=== PATIENT | female | born 1970 | race Caucasian/White ===

== ENCOUNTER 2017-09-24 16:13 | Inpatient (IN) ==
[2017-09-24] MEDS ORDERED: Isovue-370 500 ML INFUS..BTL IV ONE ×2 (16:36→16:37)
--- NOTE | 2017-09-24 16:46 | Emergency Department Note ---
Disposition Clinical Impression: Hypokalemia, Severe sepsis, Lactic acidosis Anemia Qualifiers: Anemia type: unspecified type Qualified Code(s): D64.9 - Anemia, unspecified Liver failure Qualifiers: Liver failure chronicity: unspecified chronicity Hepatic coma status: without hepatic coma Qualified Code(s): K72.90 - Hepatic failure, unspecified without coma UTI (urinary tract infection) Qualifiers: Urinary tract infection type: site unspecified Hematuria presence: without hematuria Qualified Code(s): N39.0 - Urinary tract infection, site not specified Disposition: Admitted As Inpatient Condition: Serious Referrals: NONE,PCP [Primary Care Provider] - Time of Disposition: 17:49 General Adult HPI - General Chief complaint: ED General Medical Stated complaint: "Swelling all over" Time Seen by Provider: 09/24/17 16:20 Source: patient Mode of arrival: ambulatory Limitations: no limitations Nursing Notes Reviewed: Yes Vital Signs Reviewed: Yes - History of Present Illness HPI Narrative: 47-year-old female history of smoking, drinking, methamphetamine use, fatty liver, presents with abdominal swelling, bilateral lower extremity swelling, and dyspnea. Patient states this been progressive for the last several months, patient had worsening symptoms lately. Patient states that she has more dyspnea , she is more short of breath with light activity. She feels like her abdomen is more distended. She denies fever, chills, diarrhea or constipation. Onset (ago): week(s) Location: abdomen Pain Severity: moderate Pain Scale: 8 Improves with: nothing Worsens with: nothing Associated symptoms: Reports: loss of appetite, nausea/vomiting. Denies: confusion, chest pain, cough, diaphoresis - Related Data Allergies Allergy/AdvReac Type Severity Reaction Status Date / Time No Known Allergies Allergy Verified 09/24/17 16:35 All systems ED: reviewed and negative except as stated. Review of Systems: As Per HPI Constitutional: Reports: weakness. Denies: fever, chills Eyes: Denies: eye pain ENT ED: Denies: ear pain Cardiovascular: Denies: chest pain Respiratory: Denies: cough Gastrointestinal: Reports: as per HPI, abdominal pain, nausea, vomiting. Denies : diarrhea, hematemesis, melena, hematochezia Genitourinary: Denies: urgency, dysuria Musculoskeletal: Denies: back pain, neck pain Integumentary: Denies: rash Neurological: Denies: headache Past Medical History - Past Medical History Attestation: Yes The following information was validated with the patient. Source: patient - Social History Smoking Status: Current every day smoker Alcohol use: Reports: heavy Drug use: Reports: marijuana, methamphetamine, prescription drug abuse Physical Exam - General General appearance: cachectic - Head Head exam: atraumatic - Eye Eye exam: Present: PERRL, scleral icterus - ENT ENT exam: normal exam - Neck Neck exam: Present: normal inspection, full ROM - Chest Chest inspection: Present: normal inspection, symmetric chest wall rise - Respiratory Respiratory exam: Present: normal lung sounds bilaterally - Expanded Respiratory Exam Location: decreased breath sounds: Lower, Right, Left - Cardiovascular Cardiovascular exam: Present: regular rate, normal rhythm - Abdominal Exam Abdominal exam: Present: soft, distention (severe). Absent: guarding, rebound Abdominal tenderness: Present: diffuse, moderate - Extremities Exam Extremities exam: Present: normal inspection, full ROM - Expanded Lower Extremity Exam Lower leg exam: Present: swelling (Bilateral +2 pitting) - Back Exam Back exam: Present: normal inspection, full ROM. Absent: CVA tenderness (R), CVA tenderness (L) - Neurological Exam Neurological exam: Present: alert - Expanded Neurological Exam Patient oriented to: Present: person, place, time Motor strength - LUE: 5/5 Motor strength - RUE: 5/5 Motor strength - LLE: 5/5 Motor strength - RLE: 5/5 Coma Scale Eye Opening: Spontaneous Coma Scale Motor Response: Obeys Commands Coma Scale Verbal Response: Oriented Coma Scale Total: 15 - Skin Skin exam: Present: other (jaundiced) Course Course Narrative: 47-year-old female with abdominal distention and jaundice scleral icterus, she appears to be in liver renal failure, she also has +2 pitting edema bilaterally , plan is for CBC BMP, hepatic panel, basic labs lactate, blood cultures, IV fluids, plan for CT imaging of her chest abdomen pelvis - Reevaluation(s) Reevaluation #1: Patient with multiple metabolic abnormalities, she does have good renal function so we can get a CTA of her chest abdomen pelvis, however the patient has hypokalemia, anemia 7.5, unsure if acute or chronic, patient likely has liver failure with bilirubin of 3, she has evidence of sepsis identified at this time, with lactate of 3.7 her urine just came back as positive for nitrite and leukocyte esterase we will send a culture, treat empirically with Zosyn and Flagyl to cover for an anaerobe and intra-abdominal organisms, plan is for CT imaging and admission. Time: 17:47 Reevaluation #2: Admitted to Dr. Soto, for lactic acidosis, liver failure, anemia, multiple metabolic Maladies, patient hemodynamically stable started on Zosyn and Flagyl empirically. Time: 18:40 Vital Signs Temperature 98.0 F 09/24/17 16:14 Pulse Rate 98 09/24/17 16:14 Respiratory Rate 16 09/24/17 16:14 Blood Pressure 129/71 09/24/17 16:14 O2 Sat by Pulse Oximetry 95 09/24/17 16:14 Temperature 98.0 F 09/24/17 16:36 Pulse Rate 83 09/24/17 17:04 Respiratory Rate 20 09/24/17 17:04 Blood Pressure 90/64 09/24/17 17:04 O2 Sat by Pulse Oximetry 94 09/24/17 17:04 Oxygen Delivery Oxygen Delivery Room Air Medical Decision Making - Medical Records Medical records reviewed: Yes I reviewed the patient's medical records. - Lab Data Lab results reviewed: Yes I reviewed the patient's lab results. Result diagrams: 09/24/17 17:00 09/24/17 17:00 Lab Results 09/24/17 09/24/17 09/24/17 Range/Units 17:00 17:00 17:00 WBC 13.3 H (4.3-11.1) K/mcL RBC 1.95 L (3.82-4.97) M/mcL Hgb 7.5 L (11.5-15.4) g/dL Hct 23.4 L (35.3-44.9) % MCV 120.0 H (83.0-100.0) fL MCH 38.5 H (28.0-33.3) pg MCHC 32.1 (31.6-35.5) g/dL RDW 16.9 H (11.5-14.5) % Plt Count 142 (140-400) K/mcL MPV 10.4 (9.4-12.4) fL Immature Gran % 0.6 (0-4) % Seg Neutrophils % 80.4 % Lymphocytes % 12.0 % Monocytes % 6.0 % Eosinophils % 0.8 % Basophils % 0.2 % Neutrophils # 10.7 H (1.6-8.9) K/mcL Lymphocytes # 1.6 (0.6-4.6) K/mcL Monocytes # 0.8 (0.0-1.3) K/mcL Eosinophils # 0.1 (0.0-0.6) K/mcL Basophils # 0.0 (0.0-0.2) K/mcL Platelet Estimate Normal (Normal) Anisocytosis 1+ A (Not Present) Macrocytosis Present A (Not Present) Sodium 135 L (136-145) mEq/L Potassium 2.7 L (3.5-5.1) mEq/L Chloride 95 L (98-107) mEq/L Carbon Dioxide 29 (23-29) mEq/L BUN 4 L (6-20) mg/dL Creatinine 0.41 L (0.60-1.20) mg/dL Est GFR ( Amer) > 60 (> 60) Est GFR (Non-Af Amer) > 60 (> 60) BUN/Creatinine Ratio 10 (6-26) Glucose 99 (70-105) mg/dL Calculated Osmolality 277 L (280-300) Lactic Acid 3.7 H (0.5-2.2) mmol/L Calcium 7.9 L (8.6-10.3) mg/dL Total Bilirubin 3.0 H (0.3-1.0) mg/dL Direct Bilirubin 1.6 H (0.0-0.2) mg/dL Indirect Bilirubin 1.4 H (0.0-1.2) mg/dL AST 59 H (13-39) Units/L ALT 8 (7-52) Units/L Alkaline Phosphatase 190 H (34-104) Units/L Troponin I < 0.03 (< 0.04) ng/mL B-Natriuretic Peptide (Less than 100) pg/mL Serum Total Protein 7.0 (6.4-8.9) g/dL Albumin 3.0 L (3.5-5.7) g/dL Globulin 4.0 H (2.4-3.5) g/dL Albumin/Globulin Ratio 0.8 L (1.1-2.2) Urine Color (Yellow) Urine Clarity (Clear) Urine pH (5.0-8.0) pH Units Ur Specific [place] (1.010-1.025) Urine Protein (Neg-Trace) mg/dL Urine Glucose (UA) (Normal) mg/dL Urine Ketones (Negative) mg/dL Urine Blood (Negative) Urine Nitrite (Negative) Urine Bilirubin (Negative) Urine Urobilinogen (Normal) mg/dL Ur Leukocyte Esterase (Negative) Urine Microscopic RBC (0-3) per hpf Urine Microscopic WBC (0-3) per hpf Ur Squamous Epith Cells (None-Few) per lpf Urine Bacteria (None-Few) per hpf Hyaline Casts (None-Few) per lpf Ur Culture Indicated? (NO) Stool Occult Blood (Negative) Blood Type Antibody Screen 09/24/17 09/24/17 09/24/17 Range/Units 17:00 17:15 17:35 WBC (4.3-11.1) K/mcL RBC (3.82-4.97) M/mcL Hgb (11.5-15.4) g/dL Hct (35.3-44.9) % MCV (83.0-100.0) fL MCH (28.0-33.3) pg MCHC (31.6-35.5) g/dL RDW (11.5-14.5) % Plt Count (140-400) K/mcL MPV (9.4-12.4) fL Immature Gran % (0-4) % Seg Neutrophils % % Lymphocytes % % Monocytes % % Eosinophils % % Basophils % % Neutrophils # (1.6-8.9) K/mcL Lymphocytes # (0.6-4.6) K/mcL Monocytes # (0.0-1.3) K/mcL Eosinophils # (0.0-0.6) K/mcL Basophils # (0.0-0.2) K/mcL Platelet Estimate (Normal) Anisocytosis (Not Present) Macrocytosis (Not Present) Sodium (136-145) mEq/L Potassium (3.5-5.1) mEq/L Chloride (98-107) mEq/L Carbon Dioxide (23-29) mEq/L BUN (6-20) mg/dL Creatinine (0.60-1.20) mg/dL Est GFR ( Amer) (> 60) Est GFR (Non-Af Amer) (> 60) BUN/Creatinine Ratio (6-26) Glucose (70-105) mg/dL Calculated Osmolality (280-300) Lactic Acid (0.5-2.2) mmol/L Calcium (8.6-10.3) mg/dL Total Bilirubin (0.3-1.0) mg/dL Direct Bilirubin (0.0-0.2) mg/dL Indirect Bilirubin (0.0-1.2) mg/dL AST (13-39) Units/L ALT (7-52) Units/L Alkaline Phosphatase (34-104) Units/L Troponin I (< 0.04) ng/mL B-Natriuretic Peptide 218 H (Less than 100) pg/mL Serum Total Protein (6.4-8.9) g/dL Albumin (3.5-5.7) g/dL Globulin (2.4-3.5) g/dL Albumin/Globulin Ratio (1.1-2.2) Urine Color [place] A (Yellow) Urine Clarity Cloudy A (Clear) Urine pH 6.0 (5.0-8.0) pH Units Ur Specific [place] 1.019 (1.010-1.025) Urine Protein 30 H (Neg-Trace) mg/dL Urine Glucose (UA) Normal (Normal) mg/dL Urine Ketones Trace H (Negative) mg/dL Urine Blood Large H (Negative) Urine Nitrite Positive A (Negative) Urine Bilirubin Moderate H (Negative) Urine Urobilinogen Normal (Normal) mg/dL Ur Leukocyte Esterase Large H (Negative) Urine Microscopic RBC 5-15 H (0-3) per hpf Urine Microscopic WBC TNTC H (0-3) per hpf Ur Squamous Epith Cells Many H (None-Few) per lpf Urine Bacteria Moderate H (None-Few) per hpf Hyaline Casts None Seen (None-Few) per lpf Ur Culture Indicated? NO. A (NO) Stool Occult Blood (Negative) Blood Type A POSITIVE Antibody Screen NEGATIVE 09/24/17 Range/Units 18:11 WBC (4.3-11.1) K/mcL RBC (3.82-4.97) M/mcL Hgb (11.5-15.4) g/dL Hct (35.3-44.9) % MCV (83.0-100.0) fL MCH (28.0-33.3) pg MCHC (31.6-35.5) g/dL RDW (11.5-14.5) % Plt Count (140-400) K/mcL MPV (9.4-12.4) fL Immature Gran % (0-4) % Seg Neutrophils % % Lymphocytes % % Monocytes % % Eosinophils % % Basophils % % Neutrophils # (1.6-8.9) K/mcL Lymphocytes # (0.6-4.6) K/mcL Monocytes # (0.0-1.3) K/mcL Eosinophils # (0.0-0.6) K/mcL Basophils # (0.0-0.2) K/mcL Platelet Estimate (Normal) Anisocytosis (Not Present) Macrocytosis (Not Present) Sodium (136-145) mEq/L Potassium (3.5-5.1) mEq/L Chloride (98-107) mEq/L Carbon Dioxide (23-29) mEq/L BUN (6-20) mg/dL Creatinine (0.60-1.20) mg/dL Est GFR ( Amer) (> 60) Est GFR (Non-Af Amer) (> 60) BUN/Creatinine Ratio (6-26) Glucose (70-105) mg/dL Calculated Osmolality (280-300) Lactic Acid (0.5-2.2) mmol/L Calcium (8.6-10.3) mg/dL Total Bilirubin (0.3-1.0) mg/dL Direct Bilirubin (0.0-0.2) mg/dL Indirect Bilirubin (0.0-1.2) mg/dL AST (13-39) Units/L ALT (7-52) Units/L Alkaline Phosphatase (34-104) Units/L Troponin I (< 0.04) ng/mL B-Natriuretic Peptide (Less than 100) pg/mL Serum Total Protein (6.4-8.9) g/dL Albumin (3.5-5.7) g/dL Globulin (2.4-3.5) g/dL Albumin/Globulin Ratio (1.1-2.2) Urine Color (Yellow) Urine Clarity (Clear) Urine pH (5.0-8.0) pH Units Ur Specific [place] (1.010-1.025) Urine Protein (Neg-Trace) mg/dL Urine Glucose (UA) (Normal) mg/dL Urine Ketones (Negative) mg/dL Urine Blood (Negative) Urine Nitrite (Negative) Urine Bilirubin (Negative) Urine Urobilinogen (Normal) mg/dL Ur Leukocyte Esterase (Negative) Urine Microscopic RBC (0-3) per hpf Urine Microscopic WBC (0-3) per hpf Ur Squamous Epith Cells (None-Few) per lpf Urine Bacteria (None-Few) per hpf Hyaline Casts (None-Few) per lpf Ur Culture Indicated? (NO) Stool Occult Blood Negative (Negative) Blood Type Antibody Screen - Radiology Data Radiology results reviewed: Yes I reviewed the patient's radiology results. Chest CTA 09/24/17 16:36 IMPRESSION: No evidence of pulmonary embolism or acute pulmonary abnormality. Enlarged liver showing fatty infiltration. D/ / Laura Riley Cha, MD / Laura Riley Cha, MD Interpreting Provider: Laura Riley Cha, MD Chest X-Ray 09/24/17 16:36 IMPRESSION: No acute process. D/ / Benja Goodson MD / Benja Goodson MD Interpreting Provider: Benja Goodson MD Abdomen/Pelvis CT 09/24/17 16:37 IMPRESSION: 1. A 9 mm rim enhancing hypodensity in the right perianal region is suspicious for tiny abscess. 2. Hepatomegaly with diffuse heterogeneity and patchy areas of low-attenuation. Findings likely represent sequela of hepatic steatosis versus diffuse hepatocellular change. 3. Trace pericholecystic fluid is nonspecific but likely represent sequela of third-spacing of fluids or reactive to underlying liver disease. 4. Evidence of anasarca with small ascites, mesenteric/omental edema and body wall edema. 5. Scattered colonic diverticula without evidence of diverticulitis. 6. No evidence of bowel obstruction. 7. Nonobstructing bilateral renal calculi. D/ / 09/24/2017 18:34:24 Simon Pinzon MD / gal Interpreting Provider: Simon Pinzon MD - EKG Data EKG #1 EKG attestation: Yes I reviewed and interpreted this EKG. EKG shows normal: sinus rhythm Rate: normal Rhythm: NSR (85 bpm NM 161 QRS 90 QTC 493 T-wave inversions in lead V2 V3) T wave inversions noted in: v2, v3 Interpretation: nonspecific ST-T wave changes - Core Measures AMI Core Measures Followed: No Measure Exclusions: not indicated Critical Care Time Critical Care Time: Yes Total Critical Care Time: 35 Attestation: Critical care time 35 minutes managing patient's severe sepsis. Attestation Statement - Attestation Attestation: Patient was seen with resident physician. I reviewed the history, physical, assessment and plan, and agree with the findings. I also personally evaluated this patient and had [id number] time with this patient. 47-year-old female presents emergency Department with chief complaint swelling all over. Sensation states it started approximately one month ago. She has no real prior medical history except for fatty liver. She does acknowledge that she is a fairly heavy drinker and has had drugs including marijuana and methamphetamine. Says that the swelling has gotten so bad in her legs is painful to walk and stand. Also notes abdominal pain and abdominal swelling area pain is in the right upper and left upper quadrants. It seems to radiate into the chest underneath the breast. There is maybe some mild shortness of breath but no really classically described chest pain. Comes in today hoping for evaluation and treatment. Review of systems as above remained reviewed negative. Physical exam vital signs were stable. ENT is unremarkable. Heart regular rhythm and rate. Lungs were clear without crackles. Abdomen distended and obese with large abdominal girth. There is tenderness in the left upper and right upper quadrants. There is no guarding rigidity. Extremities 2+ pitting edema which is symmetrical and bilateral the lower extremities. Neurologically intact. Skin no rashes. Psych normal no evidence of withdrawal from alcohol. We will need to complete workup to try and figure out what is causing her swelling. Topical list would be liver or kidney disease. Also have to consider possible PE heart failure and other potential causes. All these will be looked at. Once workup is complete we will contact the hospitalist service and arrange for admission. Workup demonstrated hypokalemia severe sepsis likely from UTI. And ascites with liver dysfunction. Also with anemia. Patient had a lactic acidosis as well. CT scan of the chest did not reveal any acute abnormalities. Hospitalist was notified and agreed to accept patient for admission. Hemodynamically she did well. We gave her at least 1 L of fluids while she was here but we did not want to fluid overload her considering her significant swelling. Critical care time 35 minutes. I agree with resident physician assessment and plan.
[2017-09-24 17:18] LABS: Basophils % 0.2 %; Eosinophils # 0.1 K/mcL (0.0-0.6); Eosinophils % 0.8 %; Hematocrit 23.4 % (35.3-44.9); Hemoglobin 7.5 g/dL (11.5-15.4); Immature Granulocytes % 0.6 % (0-4); Lymphocytes # 1.6 K/mcL (0.6-4.6); Mean Corpuscular HGB Conc 32.1 g/dL (31.6-35.5); Mean Corpuscular Hemoglobin 38.5 pg (28.0-33.3); Mean Platelet Volume 10.4 fL (9.4-12.4); Monocytes # 0.8 K/mcL (0.0-1.3); Neutrophils # 10.7 K/mcL (1.6-8.9); Platelet Count 142 K/mcL (140-400); Red Blood Count 1.95 M/mcL (3.82-4.97); Red Cell Distribution Width 16.9 % (11.5-14.5); Segmented Neutrophils % 80.4 %
[2017-09-24] MEDS ORDERED: 0.9 % Sodium Chloride 1,000 ML IVC ONE ×2 (17:29→23:09)
[2017-09-24 17:30] LABS: Alanine Aminotransferase 8 Units/L (7-52); Albumin/Globulin Ratio 0.8 (1.1-2.2); Alkaline Phosphatase 190 Units/L (34-104); Aspartate Amino Transferase 59 Units/L (13-39); BUN/Creatinine Ratio 10 (6-26); Bilirubin,Direct 1.6 mg/dL (0.0-0.2); Bilirubin,Indirect 1.4 mg/dL (0.0-1.2); Blood Urea Nitrogen 4 mg/dL (6-20); Calcium 7.9 mg/dL (8.6-10.3); Carbon Dioxide 29 mEq/L (23-29); Chloride 95 mEq/L (98-107); Glucose 99 mg/dL (70-105); Osmolality,Calculated 277 (280-300); Potassium 2.7 mEq/L (3.5-5.1); Sodium 135 mEq/L (136-145); Troponin I < 0.03 ng/mL (< 0.04); eGFR For African Americans > 60 (> 60); eGFR For Non-African Americans > 60 (> 60)
[2017-09-24 17:30] LABS: Bilirubin,Urine Moderate (Negative); Blood,Urine Large (Negative); Clarity,Urine Cloudy (Clear); Color,Urine Orange (Yellow); Glucose,Urine (UA) Normal (Normal); Ketones,Urine Trace mg/dL (Negative); Leukocyte Esterase,Urine Large (Negative); Nitrite,Urine Positive (Negative); Protein,Urine 30 mg/dL (Neg-Trace); Specific Gravity,Urine 1.019 (1.010-1.025); Urobilinogen,Urine Normal (Normal)
[2017-09-24 17:32] LABS: Bacteria,Urine Moderate per hpf (None-Few); Hyaline Casts,Urine None Seen per lpf (None-Few); Squamous Epithelial Cell,Urine Many per lpf (None-Few); WBC,Urine TNTC per hpf (0-3)
[2017-09-24 17:39] LABS: Anisocytosis 1+ (Not Present); Macrocytosis Present (Not Present); Platelet Estimate Normal (Normal)
[2017-09-24] MEDS ORDERED: Piperacillin/Tazobactam 3.375 GM in 0.9 % Sodium Chloride Mini Bag 100 ML IVPB ONE (17:41)
[2017-09-24] MEDS ORDERED: MetroNIDAZOLE 500 MG/100 ML 500 MG/100 ML BAG IVPB ONE (17:44)
[2017-09-24] MEDS ORDERED: Naloxone 0.4 MG/ML INJ IVP PRN (18:49)
--- NOTE | 2017-09-24 18:57 | Internal Med History&Physical ---
Date of Encounter: 09/24/17 Time of Encounter: 18:55 Internal Medicine - H&P: HPI Chief complaint: Lower extremity swelling, stomach swellings History of present illness: Ms. Boone is a 47 year old female with a history of chronic alcoholism who takes no medicines presenting with subacute history of lower extremity swelling with abdominal distention. Admitted for "decompensated" cirrhosis. She presents because of worsening lower extremity edema in the last few weeks. This is on the back of abdominal swelling in the last 3 months. She does report some nonspecific subjective fevers and chills for the last 4-5 months. Denies any diarrhea or nausea or vomiting. She smokes a pack and half per day for many years. She drinks approximately 10 beers a week and about of liquor per week for the last 4-5 years. She mentioned that she first used amphetamine 4 days ago. On review given CT correlation. Patient had a perianal abscess approximately a year to year and half ago status post I&D. Patient denies active symptoms to include rectal pain and I believe CT finding is probably a remnant and nonactive problem. Review of symptoms also noted right arm paresthesia for the last 3 months. She denies any dysuria. Admits to chronic frequency EKG personally reviewed with rate 85, normal sinus rhythm FINDINGS: Lower Chest: Please see same-day chest CT report. Lung bases demonstrate no definite acute abnormality. Organs: Hepatomegaly with diffuse heterogeneity with patchy areas of low-attenuation. No discrete mass is identified. Mild periportal edema. No intrahepatic bile duct dilatation. Small amount of pericholecystic fluid. No calcified gallstones. Bilateral adrenal glands are normal. The spleen demonstrates no acute abnormality. Bilateral kidneys enhance symmetrically and demonstrate no acute abnormality. There are bilateral nonobstructing renal stones measuring up to 4 mm on the right. No hydronephrosis. The pancreas enhances uniformly. There is mild peripancreatic inflammation. GI/Bowel: No acute gastric abnormality. No acute small bowel abnormality. No evidence of small bowel obstruction. Partial visualization of a 9 mm mildly rim enhancing collection in the right perianal region. Scattered colonic diverticula. No evidence of diverticulitis. No definite acute colonic abnormality. Submucosal fat deposition along the colonic wall is probably an incidental finding. No evidence of appendicitis. Pelvis: No definite acute abnormality. Peritoneum/Retroperitoneum: Small/moderate ascites. Mild diffuse mesenteric and omental edema, including within the marisela hepatis. No free air. Moderate atherosclerotic disease of the abdominal aorta. IVC is unremarkable. No definite significant lymphadenopathy. Bones/Soft Tissues: No acute osseus abnormality. Body wall edema. Moderate degenerative changes lumbar spine, worse at L4-L5 and L5-S1. There is a prominent disc bulge at L4-L5 causing moderate central canal stenosis. CT/CT abd pelvis w iv no oral IMPRESSION: 1. A 9 mm rim enhancing hypodensity in the right perianal region is suspicious for tiny abscess. 2. Hepatomegaly with diffuse heterogeneity and patchy areas of low-attenuation. Findings likely represent sequela of hepatic steatosis versus diffuse hepatocellular change. 3. Trace pericholecystic fluid is nonspecific but likely represent sequela of third-spacing of fluids or reactive to underlying liver disease. 4. Evidence of anasarca with small ascites, mesenteric/omental edema and body wall edema. 5. Scattered colonic diverticula without evidence of diverticulitis. 6. No evidence of bowel obstruction. 7. Nonobstructing bilateral renal calculi. XR/XR chest 1V portable IMPRESSION: No acute process. CT/CT angio chest IMPRESSION: No evidence of pulmonary embolism or acute pulmonary abnormality. Enlarged liver showing fatty infiltration. Past Med Surg Social Fam HX - Past Medical History Medical history: no medical history, fibromyalgia, other Additional medical history: ETOH abuse. meth use. fatty liver Psychiatric history: no psych history - Past Surgical History Additional surgical history: back. biopsy of breast-benign. abscess of colon removed - Social History Smoking Status: Current every day smoker Smokeless Tobacco Status: No Alcohol use: heavy Drug use: marijuana, methamphetamine, prescription drug abuse Internal Medicine - H&P: Meds 3 Allergy/AdvReac Type Severity Reaction Status Date / Time No Known Allergies Allergy Verified 09/24/17 16:35 All Systems PM: A 10-system review of systems was performed and is negative for pertinent findings except as documented above in the HPI. Review of systems: ROS 14 point review of systems reviewed as best as possible given presentation. Pertinent positive or negative as per HPI or otherwise reviewed as negative - Constitutional Vitals: Temp Pulse Resp BP Pulse Ox 98.0 F 83 20 91/42 94 09/24/17 16:36 09/24/17 17:04 09/24/17 18:47 09/24/17 18:47 09/24/17 17:04 Exam: General - AAO x 3 Psych - Appropriate affect/speech. No agitation Eyes - ROXIE. Eye lids intact. scleral icterus Neuro - No gross peripheral or central neuro deficits on inspection Heart - Sinus. RRR. S1 and S2 present. No added HS/murmurs appreciated. No elevated JVD appreciated. Lung - Adequate air entry b/l, No crackles/wheezes appreciated GI - distended with dilated abdominal veins Soft, non-tender. Possible mild ascites. Bowel sounds present - No CVA/suprapubic tenderness or palpable bladder distension Skin - Intact. No rash/petechiae/ecchymosis. Warm extremities. +2 bilateral lower extremity edema Internal Med - H&P Results - Labs CBC & Chem 7: 09/24/17 17:00 09/24/17 17:00 - Assessment and plan (1) Decompensated hepatic cirrhosis Current Visit: Yes Status: Acute Assessment and plan: likely 2/2 alcoholism Trend liver function cirrhosis likely causing third spacing with LE edema, abdominal swelling. No immediate need for echo for now - will defer this to morning team outpatient Gi follow up (2) Alcoholism Current Visit: Yes Status: Acute Assessment and plan: [facility] protocol for now social work consult (3) Anemia Current Visit: Yes Status: Acute Assessment and plan: macrocytic along with anemia (Hb 15 in 2014) check nutritional studies further management pending nutritional studies watch for clinical bleeding e.g melena - will need to review again in a.m - outpatient GI eval Qualifiers: Anemia type: other cause Qualified Code(s): D53.8 - Other specified nutritional anemias (4) Hypokalemia Current Visit: Yes Status: Acute Assessment and plan: PO K replacement check K, Mg daily (5) Lactic acidosis Current Visit: Yes Status: Acute Assessment and plan: doubt 2/2 to sepsis could be due to liver dysfunction from cirrhosis trend lactate blood cx pend (6) UTI (urinary tract infection) Current Visit: Yes Status: Acute Assessment and plan: no overt symptoms but given leuk/nitrites/WBC present, will empirically treat with IV rocephin urine cx pend Qualifiers: Urinary tract infection type: site unspecified Hematuria presence: without hematuria Qualified Code(s): N39.0 - Urinary tract infection, site not specified (7) Perianal abscess Current Visit: Yes Status: Acute Assessment and plan: picked up on CT today but clinically no symptoms. Patient reported I&D approx 1- 1.5 years ago approx is symptom free for now expectant management - Time Spent With Patient Total time spent is greater than 50% in coordination of care (as documented) at patient's floor/unit and/or counseling patient:
[2017-09-25 00:25] LABS: Amphetamine Screen,Urine Positive ng/mL (Cutoff=1000); Barbiturate Screen,Urine Negative ng/mL (Cutoff=200); Benzodiazepines Screen,Urine Positive ng/mL (Cutoff=200); Cannabinoid Screen,Urine Negative ng/mL (Cutoff = 50); Cocaine Screen,Urine Negative ng/mL (Cutoff= 300); Opiate Screen,Urine Negative ng/mL (Cutoff=300); Phencyclidine Screen,Urine Negative ng/mL (Cutoff=25)
[2017-09-25 01:51] LABS: Basophils % 0.2 %; Eosinophils # 0.2 K/mcL (0.0-0.6); Eosinophils % 0.9 %; Hematocrit 30.8 % (35.3-44.9); Hemoglobin 10.1 g/dL (11.5-15.4); Immature Granulocytes % 0.6 % (0-4); Lymphocytes # 1.5 K/mcL (0.6-4.6); Lymphocytes % 8.2 %; Mean Corpuscular HGB Conc 32.8 g/dL (31.6-35.5); Mean Corpuscular Hemoglobin 38.8 pg (28.0-33.3); Mean Corpuscular Volume 118.5 fL (83.0-100.0); Mean Platelet Volume 10.5 fL (9.4-12.4); Monocytes % 5.5 %; Platelet Count 164 K/mcL (140-400); Red Cell Distribution Width 17.1 % (11.5-14.5); Retculocyte # 0.06 M/mcL (0.05-0.10); Reticulocyte % 2.3 % (1.6-2.8); Segmented Neutrophils % 84.6 %
[2017-09-25 01:59] LABS: INR 2.2; Prothrombin Time 24.4 Seconds (9.4-12.1)
[2017-09-25 02:02] LABS: Activated Partial Thrombo Time 37.7 Seconds (26.0-36.0)
[2017-09-25 02:16] LABS: % Iron Saturation 82 % (15-50); Alanine Aminotransferase 8 Units/L (7-52); Albumin 2.7 g/dL (3.5-5.7); Albumin/Globulin Ratio 0.7 (1.1-2.2); Alkaline Phosphatase 194 Units/L (34-104); Aspartate Amino Transferase 73 Units/L (13-39); BUN/Creatinine Ratio 9 (6-26); Bilirubin,Total 3.6 mg/dL (0.3-1.0); Blood Urea Nitrogen 4 mg/dL (6-20); Calcium 7.5 mg/dL (8.6-10.3); Carbon Dioxide 27 mEq/L (23-29); Chloride 101 mEq/L (98-107); Globulin 3.7 g/dL (2.4-3.5); Glucose 91 mg/dL (70-105); Iron 142 mcg/dL (50-170); Magnesium 1.7 mg/dL (1.6-2.6); Osmolality,Calculated 278 (280-300); Sodium 136 mEq/L (136-145); Total Protein 6.4 g/dL (6.4-8.9); Transferrin 124 mg/dL (203-362); eGFR For African Americans > 60 (> 60); eGFR For Non-African Americans > 60 (> 60)
[2017-09-25 02:23] LABS: Anisocytosis 1+ (Not Present); Macrocytosis Present (Not Present); Platelet Estimate Normal (Normal)
[2017-09-25 02:33] LABS: Ferritin 209 ng/mL (10-120)
[2017-09-25 02:37] LABS: Folate 2.7 ng/mL (3.0-16.0)
[2017-09-25] MEDS ORDERED: *HR* Enoxaparin 40 MG/0.4 ML SYRINGE SQ SCH (06:00)
[2017-09-25] MEDS ORDERED: cefTRIAXone 2,000 MG in Water for inj. (sterile) 20 ML 20 ML IVP SCH (09:00)
[2017-09-25] MEDS ORDERED: Ondansetron 4 MG/2 ML VIAL IVP ONE (09:41)
[2017-09-25] MEDS: Nicotine 21 MG PATCH.TD24 TD SCH (09:47)
[2017-09-25] MEDS: *HR* LORazepam 2 MG/ML VIAL IVP PRN ×6 (09:48→23:27)
[2017-09-25] MEDS ORDERED: 0.9 % Sodium Chloride 250 ML IVC ONE (09:58)
--- NOTE | 2017-09-25 09:59 | Internal Med Progress Note ---
Date of Encounter: 09/27/17 Time of Encounter: 09:56 - Assessment and plan (1) Decompensated hepatic cirrhosis Current Visit: Yes Status: Acute Assessment and plan: likely 2/2 alcoholism. Never got evaluated by GI specialist. Talk to GI specialist and consulted. Patient got admitted for cardiac spacing symptom and responded to IV diuretic but now blood pressure is low. A small fluid challenge 250 abdominal will be given and repeat blood pressure. The patient does not respond to consider VASOpressor and consult critical care. Possibility of septic shock as well as initial lactic acid was high and now white count trending up while on Rocephin. Possible source of infection GI related or possible perianal abscess found on CT abdomen there patient does not complain anal pain. Talk to surgeon in consulted. Will start antibiotic Levaquin and Flagyl. strict I&O's. Echocardiogram ordered to rule out underlying CHF. Today worsening or white count, low blood pressure and the new onset of diarrhea therefore changed antibiotic and consulted as above. . (2) Anemia Current Visit: Yes Status: Acute Assessment and plan: Monitor hemoglobin most likely due to hemoconcentration. Continue to monitor. Hemoccult test. Consulted GI specialist as well. macrocytic along with anemia (Hb 15 in 2014) Qualifiers: Anemia type: other cause Other causes of anemia: other cause, not classified Qualified Code(s): D64.89 - Other specified anemias Code(s): D64.9 - Anemia, unspecified SNOMED Code(s): 471235535 (3) Hypokalemia Current Visit: Yes Status: Acute Assessment and plan: Resolved. Continue to monitor BMP (4) UTI (urinary tract infection) Current Visit: Yes Status: Acute Assessment and plan: Asymptomatic but abnormal urine analysis. Urine culture report awaited. Continue antibiotic Levaquin. Qualifiers: Urinary tract infection type: site unspecified Hematuria presence: without hematuria Qualified Code(s): N39.0 - Urinary tract infection, site not specified (5) Lactic acidosis Current Visit: Yes Status: Acute Assessment and plan: Possible sepsis as white count going up while on Rocephin and also low blood pressure but lactic acid trending down. Continue antibiotic as mentioned and follow culture report. Close monitoring. (6) Alcoholism Current Visit: Yes Status: Acute Assessment and plan: Possible withdrawal. Last alcohol drink 24 hours ago. Continue CIWA protocol .keep patient nothing by mouth for now with aspiration, seizure, fall precaution. social work consult (7) Perianal abscess Current Visit: Yes Status: Acute Assessment and plan: Based on CT report. Patient denies abdominal pain but has new onset of diarrhea and her white count going up therefore will rule out underlying contributing factor. Consulted general surgeon. Patient has history of perianal abscess reported I&D last year. - Time Spent With Patient Total time spent is greater than 50% in coordination of care (as documented) at patient's floor/unit and/or counseling patient: Greater than 35 minutes - Subjective Interval history: Complaint of diarrhea started last night. Feeling sweaty in seems like in withdrawal. Last alcohol Monday morning 24 hours ago. She had 1 dose of Lasix in ER and lower extremity swelling better but today her blood pressure noticed. No acute distress. Reviewed labs with raised white count, but her hemoglobin level seems like hemoconcentration, normal potassium. Normal lactic acid now. Complaint of distended abdomen otherwise denies fever but had chills,, nausea. Patient denied chest pain, shortness of breath, headache, dizziness, tingling numbness - Constitutional Vitals: Temp Pulse Resp BP Pulse Ox 98.2 F 82 18 88/52 97 09/25/17 06:34 09/25/17 06:34 09/25/17 03:57 09/25/17 06:34 09/25/17 06:34 Exam: General appearance: No acute distress but appear answers with slight sweating. A&O X 3 Head exam: Atraumatic Eye exam: EOMI, PERRLA ENT exam: Dry oral mucosa Neck nontender, supple Respiratory exam: Clear to auscultation bilaterally. Dimness breath sound due to body habitus Cardiovascular exam: Regular rate and rhythm, no systolic murmur Abdominal exam: Soft, nontender, distended, hyperactive bowel sounds Extremities exam: No calf tenderness, +1/2pedal edema Present: Skin-no rash, warm, dry, intact Neurological exam: Alert, awake, oriented 3, CN II-XII intact, no focal deficits. No facial droop. Normal speech. Internal Medicine: Result - Labs CBC & Chem 7: 09/26/17 05:13 09/26/17 05:13 Labs: Short CBC 09/25/17 Range/Units 01:39 WBC 17.7 H (4.3-11.1) K/mcL Hgb 10.1 L D (11.5-15.4) g/dL Hct 30.8 L (35.3-44.9) % Plt Count 164 (140-400) K/mcL Neutrophils # 15.0 H (1.6-8.9) K/mcL BMP 09/25/17 01:39 Sodium 136 Potassium 4.0 D Chloride 101 Carbon Dioxide 27 BUN 4 L Creatinine 0.44 L Glucose 91 Calcium 7.5 L Liver Function 09/25/17 Range/Units 01:39 Total Bilirubin 3.6 H (0.3-1.0) mg/dL AST 73 H (13-39) Units/L ALT 8 (7-52) Units/L Alkaline Phosphatase 194 H (34-104) Units/L Albumin 2.7 L (3.5-5.7) g/dL - ABG Interpretation ABG results: PT/INR, D-dimer PT 24.4 Seconds (9.4-12.1) H 09/25/17 01:39 Consult Discharge Plan - Plan Instructions: Urinary Tract Infection in Women (DC), Anemia (GEN) Referrals: NONE,PCP [Primary Care Provider] - Sreekanth Jones, PAC [Physician [facility] Director] - (Please call for follow up within 1 week upon discharge.) Prescriptions: Cefdinir [Omnicef] 300 mg PO BID #10 capsule Folic Acid 1 mg PO DAILY #30 tablet Furosemide [Lasix] 20 mg PO DAILY #30 tablet LORazepam [Ativan] 1 mg PO Q8H PRN 3 Days #10 tablet PRN Reason: Alcohol Withdrawal Multivit/Ca/Min/Fe/FA [Thera M Plus] 1 tab PO DAILY #30 tablet Thiamine (B-1) [Vitamin B-1] 100 mg PO DAILY #30 tablet
--- NOTE | 2017-09-25 10:06 | Electrocardiograph Report ---
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
[2017-09-25] MEDS ORDERED: 0.9 % Sodium Chloride 250 ML ONE (10:09)
--- NOTE | 2017-09-25 10:50 | General Surgery Consult Note ---
<Linda Olmos L - Last Filed: 09/25/17 10:48> Date of Encounter: 09/25/17 Time of Encounter: 10:45 Assessment and Plan (1) Abnormal CT of the abdomen Current Visit: Yes Status: Acute No evidence of abscess on exam. Unlikely that the area in question (CT results below) is contributing to her sepsis picture as she is asymptomatic and negative on exam. Levaquin and Flagyl have been initiated per primary team. Although patient reports that she had an I&D here last year for a similar occuance, no records are noted in [facility] or [facility]. It is possible the patient is confused as to the treatment facility, but nonetheless, she reports that with the previous episode she had severe rectal/anal discomfort with BMs, sitting, or standing and has no complaints today. Plan: anticipate sign-off per attestation ATBX per primary team Please reconsult if questions or needs arise Partial visualization of a 9 mm mildly rim enhancing collection in the right perianal region. CT/CT abd pelvis w iv no oral IMPRESSION: 1. A 9 mm rim enhancing hypodensity in the right perianal region is suspicious for tiny abscess. 2. Hepatomegaly with diffuse heterogeneity and patchy areas of low-attenuation. Findings likely represent sequela of hepatic steatosis versus diffuse hepatocellular change. 3. Trace pericholecystic fluid is nonspecific but likely represent sequela of third-spacing of fluids or reactive to underlying liver disease. 4. Evidence of anasarca with small ascites, mesenteric/omental edema and body wall edema. 5. Scattered colonic diverticula without evidence of diverticulitis. 6. No evidence of bowel obstruction. 7. Nonobstructing bilateral renal calculi. (2) Lactic acidosis Current Visit: Yes Status: Acute See A/P above; management per primary team (3) Decompensated hepatic cirrhosis Current Visit: Yes Status: Acute Management per primary team History of Present Illness Consult date: 09/25/17 (Dr. Neftaly Chawla) Reason for consult: other Requesting physician: Judy Davis History of present illness: Vivi is 47 year old female with a past medical history of smoking, alcohol use (does not quantify amount but states "a lot" everyday) feels nauseated in the am until she has an alchololic drink, cirrhosis, anemia, and pelvic pain. She admits to amphetamine use aprox 4 days ago. She does not work outside the home. She reports a history of an I&D of an abscess in the "same area last year," but no record of such issues area noted in [facility]. She presented on 09/25/2017 with complaints of feeling more distended, shortness of breath and her legs swelling. She underwent a CT of the abdomen and pelvis which mentioned a "partially visualized 9 mm mildly rim enhancing collection in the right perianal region which could possibly represent a tiny abscess," WBC 17.7 and sugery has therefore been consulted for recommendations regarding possible abscess. Pt reports lightheadedness, feeling generally ill, fevers, chills, night sweats , abdominal pain, distention, bilateral lower extremity edema, shortness of breath. She denies chest pain, vomiting, diarrhea, or constipation. She denies any pain with bowel movements. She reports she feels nauseated every day until she has a drink. She again states she had a perirectal abscess/2 year that was drained at this facility. She states with this episode she had a large amount of pain when sitting, standing, or having bowel movements. She emphatically denies any rectal or anal discomfort, bright red blood, drainage from the rectum, or return of her previously stated symptoms. Again, of note, there are no records of the above complaint and [facility]. Past Med Surg Social Fam HX - Past Medical History Source: patient, old records reviewed Medical history: no medical history, fibromyalgia, other Additional medical history: ETOH abuse. meth use. fatty liver. Restless Leg Syndrome Psychiatric history: no psych history, other (ETOH abuse and illicit drug use) - Past Surgical History Surgical History: no surgical history Additional surgical history: back. biopsy of breast-benign. abscess of colon removed - Social History Smoking Status: Current every day smoker Packs per day: 1 Smokeless Tobacco Status: No Alcohol use: heavy Drug use: marijuana, methamphetamine, prescription drug abuse Occupational status: unemployed Current living situation: Home - Independent Activity Level: Independent ambulation Medications and Allergies Albuterol Sulfate [Albuterol Inhaler] 1 puff IH Q4HR PRN 09/24/17 [History] 3 Allergy/AdvReac Type Severity Reaction Status Date / Time No Known Allergies Allergy Verified 09/24/17 16:35 Review of Systems All systems PM: reviewed and no additional remarkable complaints except as stated All systems PM: The remainder of the systems were reviewed and are negative General Surgery Exam Initial Vital Signs Temp Pulse Resp BP Pulse Ox 98.0 F 98 16 129/71 95 09/24/17 16:14 09/24/17 16:14 09/24/17 16:14 09/24/17 16:14 09/24/17 16:14 - General physical appearance no distress, chronically ill, obese - Respiratory normal expansion, normal respiratory effort - Cardiovascular Cardiovascular exam: Present: RRR - Abdomen Abdomen general surgery: Present: non tender, distended - Rectum Rectum: Present: no tenderness, no masses, other (No evidence of induration, cellulitis, or abscess appreciated.) Hemorrhoids: Present: External - Musculoskeletal Present: normal posture - Psychiatric Psychiatric general surgery: Present: A&Ox3, appropriate, oriented to person, oriented to place, oriented to time Exam Initial Vital Signs Temp Pulse Resp BP Pulse Ox 98.0 F 98 16 129/71 95 09/24/17 16:14 09/24/17 16:14 09/24/17 16:14 09/24/17 16:14 09/24/17 16:14 Results - Labs 09/25/17 01:39 09/25/17 01:39 Abnormal lab results WBC 17.7 K/mcL (4.3-11.1) H 09/25/17 01:39 RBC 2.60 M/mcL (3.82-4.97) L 09/25/17 01:39 Hgb 10.1 g/dL (11.5-15.4) L D 09/25/17 01:39 Hct 30.8 % (35.3-44.9) L 09/25/17 01:39 MCV 118.5 fL (83.0-100.0) H 09/25/17 01:39 MCH 38.8 pg (28.0-33.3) H 09/25/17 01:39 RDW 17.1 % (11.5-14.5) H 09/25/17 01:39 Neutrophils # 15.0 K/mcL (1.6-8.9) H 09/25/17 01:39 Anisocytosis 1+ (Not Present) A 09/25/17 01:39 Macrocytosis Present (Not Present) A 09/25/17 01:39 Immature Retic Fraction 39.0 % (11.0-38.0) H 09/25/17 01:39 Retic Hgb Equivalent 41.4 pg (28.61-36.33) H 09/25/17 01:39 PT 24.4 Seconds (9.4-12.1) H 09/25/17 01:39 APTT 37.7 Seconds (26.0-36.0) H 09/25/17 01:39 BUN 4 mg/dL (6-20) L 09/25/17 01:39 Creatinine 0.44 mg/dL (0.60-1.20) L 09/25/17 01:39 POC Glucose 110 mg/dL (70-99) H 09/24/17 16:53 Calculated Osmolality 278 (280-300) L 09/25/17 01:39 Calcium 7.5 mg/dL (8.6-10.3) L 09/25/17 01:39 % Saturation 82 % (15-50) H 09/25/17 01:39 Transferrin 124 mg/dL (203-362) L 09/25/17 01:39 Ferritin 209 ng/mL (10-120) H 09/25/17 01:39 Total Bilirubin 3.6 mg/dL (0.3-1.0) H 09/25/17 01:39 Direct Bilirubin 1.6 mg/dL (0.0-0.2) H 09/24/17 17:00 Indirect Bilirubin 1.4 mg/dL (0.0-1.2) H 09/24/17 17:00 AST 73 Units/L (13-39) H 09/25/17 01:39 Alkaline Phosphatase 194 Units/L (34-104) H 09/25/17 01:39 B-Natriuretic Peptide 218 pg/mL (Less than 100) H 09/24/17 17:00 Albumin 2.7 g/dL (3.5-5.7) L 09/25/17 01:39 Globulin 3.7 g/dL (2.4-3.5) H 09/25/17 01:39 Albumin/Globulin Ratio 0.7 (1.1-2.2) L 09/25/17 01:39 Folate 2.7 ng/mL (3.0-16.0) L 09/25/17 01:39 Urine Color [place]mond[place] (Yellow) A 09/24/17 17:15 Urine Clarity Cloudy (Clear) A 09/24/17 17:15 Urine Protein 30 mg/dL (Neg-Trace) H 09/24/17 17:15 Urine Ketones Trace mg/dL (Negative) H 09/24/17 17:15 Urine Blood Large (Negative) H 09/24/17 17:15 Urine Nitrite Positive (Negative) A 09/24/17 17:15 Urine Bilirubin Moderate (Negative) H 09/24/17 17:15 Ur Leukocyte Esterase Large (Negative) H 09/24/17 17:15 Urine Microscopic RBC 5-15 per hpf (0-3) H 09/24/17 17:15 Urine Microscopic WBC TNTC per hpf (0-3) H 09/24/17 17:15 Ur Squamous Epith Cells Many per lpf (None-Few) H 09/24/17 17:15 Urine Bacteria Moderate per hpf (None-Few) H 09/24/17 17:15 Ur Culture Indicated? NO. (NO) A 09/24/17 17:15 Ur Amphetamines Screen Positive ng/mL (Cpasip=3250) H 09/24/17 19:00 U Benzodiazepines Scrn Positive ng/mL (Lawfgk=464) H 09/24/17 19:00 Diabetes panel 09/25/17 Range/Units 01:39 Sodium 136 (136-145) mEq/L Potassium 4.0 D (3.5-5.1) mEq/L Chloride 101 (98-107) mEq/L Carbon Dioxide 27 (23-29) mEq/L BUN 4 L (6-20) mg/dL Creatinine 0.44 L (0.60-1.20) mg/dL Glucose 91 (70-105) mg/dL Calcium 7.5 L (8.6-10.3) mg/dL AST 73 H (13-39) Units/L ALT 8 (7-52) Units/L Alkaline Phosphatase 194 H (34-104) Units/L Albumin 2.7 L (3.5-5.7) g/dL Calcium panel 09/25/17 Range/Units 01:39 Calcium 7.5 L (8.6-10.3) mg/dL Albumin 2.7 L (3.5-5.7) g/dL Pituitary panel 09/25/17 Range/Units 01:39 Sodium 136 (136-145) mEq/L Potassium 4.0 D (3.5-5.1) mEq/L Chloride 101 (98-107) mEq/L Carbon Dioxide 27 (23-29) mEq/L BUN 4 L (6-20) mg/dL Creatinine 0.44 L (0.60-1.20) mg/dL Glucose 91 (70-105) mg/dL Calcium 7.5 L (8.6-10.3) mg/dL Adrenal panel 09/25/17 Range/Units 01:39 Sodium 136 (136-145) mEq/L Potassium 4.0 D (3.5-5.1) mEq/L Chloride 101 (98-107) mEq/L Carbon Dioxide 27 (23-29) mEq/L BUN 4 L (6-20) mg/dL Creatinine 0.44 L (0.60-1.20) mg/dL Glucose 91 (70-105) mg/dL Calcium 7.5 L (8.6-10.3) mg/dL Total Bilirubin 3.6 H (0.3-1.0) mg/dL AST 73 H (13-39) Units/L ALT 8 (7-52) Units/L Alkaline Phosphatase 194 H (34-104) Units/L Albumin 2.7 L (3.5-5.7) g/dL All other labs normal. - Imaging CT scan - abdomen: report reviewed CT scan - pelvis: report reviewed Consult Discharge Plan - Plan Referrals: NONE,PCP [Primary Care Provider] - <Neftaly Chawla - Last Filed: 09/25/17 20:18> Date of Encounter: 09/25/17 Review of Systems All systems PM: The remainder of the systems were reviewed and are negative General Surgery Exam Initial Vital Signs Temp Pulse Resp BP Pulse Ox 98.0 F 98 16 129/71 95 09/24/17 16:14 09/24/17 16:14 09/24/17 16:14 09/24/17 16:14 09/24/17 16:14 Exam Initial Vital Signs Temp Pulse Resp BP Pulse Ox 98.0 F 98 16 129/71 95 09/24/17 16:14 09/24/17 16:14 09/24/17 16:14 09/24/17 16:14 09/24/17 16:14 Results - Labs 09/25/17 01:39 06/18/18 01:39 Abnormal lab results WBC 17.7 K/mcL (4.3-11.1) H 09/25/17 01:39 RBC 2.60 M/mcL (3.82-4.97) L 09/25/17 01:39 Hgb 10.1 g/dL (11.5-15.4) L D 09/25/17 01:39 Hct 30.8 % (35.3-44.9) L 09/25/17 01:39 MCV 118.5 fL (83.0-100.0) H 09/25/17 01:39 MCH 38.8 pg (28.0-33.3) H 09/25/17 01:39 RDW 17.1 % (11.5-14.5) H 09/25/17 01:39 Neutrophils # 15.0 K/mcL (1.6-8.9) H 09/25/17 01:39 Anisocytosis 1+ (Not Present) A 09/25/17 01:39 Macrocytosis Present (Not Present) A 09/25/17 01:39 Immature Retic Fraction 39.0 % (11.0-38.0) H 09/25/17 01:39 Retic Hgb Equivalent 41.4 pg (28.61-36.33) H 09/25/17 01:39 PT 24.4 Seconds (9.4-12.1) H 09/25/17 01:39 APTT 37.7 Seconds (26.0-36.0) H 09/25/17 01:39 BUN 4 mg/dL (6-20) L 09/25/17 01:39 Creatinine 0.44 mg/dL (0.60-1.20) L 09/25/17 01:39 POC Glucose 110 mg/dL (70-99) H 09/24/17 16:53 Calculated Osmolality 278 (280-300) L 09/25/17 01:39 Calcium 7.5 mg/dL (8.6-10.3) L 09/25/17 01:39 % Saturation 82 % (15-50) H 09/25/17 01:39 Transferrin 124 mg/dL (203-362) L 09/25/17 01:39 Ferritin 209 ng/mL (10-120) H 09/25/17 01:39 Total Bilirubin 3.6 mg/dL (0.3-1.0) H 09/25/17 01:39 Direct Bilirubin 1.6 mg/dL (0.0-0.2) H 18 17:00 Indirect Bilirubin 1.4 mg/dL (0.0-1.2) H 18 17:00 AST 73 Units/L (13-39) H 09/25/17 01:39 Alkaline Phosphatase 194 Units/L (34-104) H 09/25/17 01:39 B-Natriuretic Peptide 218 pg/mL (Less than 100) H 09/24/17 17:00 Albumin 2.7 g/dL (3.5-5.7) L 09/25/17 01:39 Globulin 3.7 g/dL (2.4-3.5) H 09/25/17 01:39 Albumin/Globulin Ratio 0.7 (1.1-2.2) L 09/25/17 01:39 Folate 2.7 ng/mL (3.0-16.0) L 09/25/17 01:39 Urine Color [place] (Yellow) A 09/24/17 17:15 Urine Clarity Cloudy (Clear) A 09/24/17 17:15 Urine Protein 30 mg/dL (Neg-Trace) H 09/24/17 17:15 Urine Ketones Trace mg/dL (Negative) H 18 17:15 Urine Blood Large (Negative) H 09/24/17 17:15 Urine Nitrite Positive (Negative) A 09/24/17 17:15 Urine Bilirubin Moderate (Negative) H 09/24/17 17:15 Ur Leukocyte Esterase Large (Negative) H 18 17:15 Urine Microscopic RBC 5-15 per hpf (0-3) H 18 17:15 Urine Microscopic WBC TNTC per hpf (0-3) H 18 17:15 Ur Squamous Epith Cells Many per lpf (None-Few) H 18 17:15 Urine Bacteria Moderate per hpf (None-Few) H 18 17:15 Ur Culture Indicated? NO. (NO) A 09/24/17 17:15 Ur Amphetamines Screen Positive ng/mL (Lccfye=4297) H 09/24/17 19:00 U Benzodiazepines Scrn Positive ng/mL (Ttebyf=607) H 09/24/17 19:00 Diabetes panel 09/25/17 Range/Units 01:39 Sodium 136 (136-145) mEq/L Potassium 4.0 D (3.5-5.1) mEq/L Chloride 101 (98-107) mEq/L Carbon Dioxide 27 (23-29) mEq/L BUN 4 L (6-20) mg/dL Creatinine 0.44 L (0.60-1.20) mg/dL Glucose 91 (70-105) mg/dL Calcium 7.5 L (8.6-10.3) mg/dL AST 73 H (13-39) Units/L ALT 8 (7-52) Units/L Alkaline Phosphatase 194 H (34-104) Units/L Albumin 2.7 L (3.5-5.7) g/dL Calcium panel 09/25/17 Range/Units 01:39 Calcium 7.5 L (8.6-10.3) mg/dL Albumin 2.7 L (3.5-5.7) g/dL Pituitary panel 09/25/17 Range/Units 01:39 Sodium 136 (136-145) mEq/L Potassium 4.0 D (3.5-5.1) mEq/L Chloride 101 (98-107) mEq/L Carbon Dioxide 27 (23-29) mEq/L BUN 4 L (6-20) mg/dL Creatinine 0.44 L (0.60-1.20) mg/dL Glucose 91 (70-105) mg/dL Calcium 7.5 L (8.6-10.3) mg/dL Adrenal panel 09/25/17 Range/Units 01:39 Sodium 136 (136-145) mEq/L Potassium 4.0 D (3.5-5.1) mEq/L Chloride 101 (98-107) mEq/L Carbon Dioxide 27 (23-29) mEq/L BUN 4 L (6-20) mg/dL Creatinine 0.44 L (0.60-1.20) mg/dL Glucose 91 (70-105) mg/dL Calcium 7.5 L (8.6-10.3) mg/dL Total Bilirubin 3.6 H (0.3-1.0) mg/dL AST 73 H (13-39) Units/L ALT 8 (7-52) Units/L Alkaline Phosphatase 194 H (34-104) Units/L Albumin 2.7 L (3.5-5.7) g/dL All other labs normal. - Attending Attestation I have personally performed a face to face evaluation on this patient. I have reviewed and agree with the care plan. History and Exam by me shows: I evaluated the patient with the clinical nurse practitioner in the resident. I personally reviewed the CAT scan films. It does not appear to be a perirectal abscess. This may be prominent perirectal tissue secondary to hemorrhoidal disease related to her hepatic cirrhosis and likely portal hypertension. She is being evaluated for gastroenterology for hepatomegaly and splenomegaly. She does not appear to have active perirectal disease area this is not the source of her sepsis. We will be glad to follow along with you Neftaly Chawla MD FACS
[2017-09-25] MEDS ORDERED: MetroNIDAZOLE 500 MG/100 ML 500 MG/100 ML BAG IVPB SCH (11:00)
[2017-09-25] MEDS ORDERED: Levofloxacin 750 MG/150 ML 750 MG/150 ML BAG IVPB SCH (11:00)
[2017-09-25] MEDS ORDERED: 0.9 % Sodium Chloride 1,000 ML ONE (11:08)
[2017-09-25] MEDS ORDERED: 0.9 % Sodium Chloride 1,000 ML IVC SCH (11:15)
[2017-09-25] MEDS: Lactobacillus 1 EACH CAP.SPRINK PO SCH (11:55)
--- NOTE | 2017-09-25 12:04 | Gastroenterology Consult Note ---
<Delores Raymundo - Last Filed: 09/25/17 21:57> Date of Encounter: 09/25/17 Time of Encounter: 14:00 - Time Spent With Patient Total time spent is greater than 50% in coordination of care (as documented) at patient's floor/unit and/or counseling patient: GI History of Present Illness - Data of Consult Requesting Physician: Judy Davis - Consult Narrative History of present illness: Ms. Boone is a 47 year old female - Constitutional Vitals: Temp Pulse Resp BP Pulse Ox 97.6 F 84 16 107/69 98 09/25/17 19:39 09/25/17 19:43 09/25/17 19:38 09/25/17 19:38 09/25/17 19:38 Results - Labs CBC & Chem 7: 09/25/17 01:39 09/25/17 01:39 Labs: Last Result Calcium 7.5 mg/dL (8.6-10.3) L 09/25/17 01:39 Iron 142 mcg/dL (50-170) 09/25/17 01:39 % Saturation 82 % (15-50) H 09/25/17 01:39 Transferrin 124 mg/dL (203-362) L 09/25/17 01:39 Ferritin 209 ng/mL (10-120) H 09/25/17 01:39 Troponin I < 0.03 ng/mL (< 0.04) 09/24/17 17:00 Vitamin B12 883 pg/mL (250-1100) 09/25/17 01:39 Folate 2.7 ng/mL (3.0-16.0) L 09/25/17 01:39 Stool Occult Blood Negative (Negative) 09/24/17 18:11 Urine Opiates Screen Negative ng/mL (Qjmmnx=283) 09/24/17 19:00 Entire Visit Hgb 10.1 g/dL (11.5-15.4) L D 09/25/17 01:39 Hct 30.8 % (35.3-44.9) L 09/25/17 01:39 PT 24.4 Seconds (9.4-12.1) H 09/25/17 01:39 Ferritin 209 ng/mL (10-120) H 09/25/17 01:39 Total Bilirubin 3.6 mg/dL (0.3-1.0) H 09/25/17 01:39 AST 73 Units/L (13-39) H 09/25/17 01:39 ALT 8 Units/L (7-52) 09/25/17 01:39 Folate 2.7 ng/mL (3.0-16.0) L 09/25/17 01:39 - ABG ABG results: PT/INR, D-dimer PT 24.4 Seconds (9.4-12.1) H 09/25/17 01:39 - Impressions Impressions Liver Ultrasound 09/25/17 17:00 IMPRESSION: Echogenic liver parenchyma suggesting chronic liver parenchymal disease and/or hepatic steatosis. Perihepatic ascites. Contracted gallbladder with diffuse mild wall thickening. No definite cholelithiasis. Prominent common bile duct. D/ / Jonny Cortez MD / Jonny Cortez MD Interpreting Provider: Jonny Cortez MD Consult Discharge Plan - Plan Referrals: NONE,PCP [Primary Care Provider] - - Attending Attestation I have personally performed a face to face evaluation on this patient. I have reviewed and agree with the care plan. History and Exam by me shows: Pt seen, has SOB and abd and prep swelling. A; Pt with Alcoholc cirrhosis with coagulopathy and DF of 66 and high MELD score. R/o sepsis. Rec: IV Albumin, Vit K, ascitic tap, PO diuretics once BP stable. <Benja Kothari - Last Filed: 09/26/17 08:15> Date of Encounter: 09/26/17 Time of Encounter: 11:30 - Assessment and plan (1) Cirrhosis Current Visit: Yes Status: Chronic Assessment and plan: MELD-Na 22, Child-Pitt class C, DF 67.5. Check liver work up. Use Lactulose PRN for 2-4 BMs daily. Complete paracentesis, send fluid for cell count, total protein, and albumin. Plan for EGD tomorrow. Keep NPO at midnight. Lifestyle Changes: 1. Total abstinence from alcohol including social drinking. 2. No smoking 3. Gradual loss of weight 4. Drink at least 3 cups of coffee due to its antioxidant effects in the liver, it reduces risk of HCC and advance fibrosis 5. If needed, use less than 2 g/day of Tylenol (in divided doses). 6. Vaccination for Hep A, B, Pneumococcus if not already received and yearly influenza vaccination by PCP 7. Avoid NSAIDS as can cause kidney damage 8. Avoid benzodiazepines and other sedatives such as anti-histamines, narcotics etc. as can cause encephalopathy or confusion 9. Take a late carbohydrate meal supplement as it reduces glucose production from protein breakdown and thus improves nutrition. 10. In cirrhosis, statins are safe to use and also improve portal hypertension and decrease risk of HCC. 11. Screening: Hepatocellular cancer screening: US of liver, and AFP every 6 months Qualifiers: Hepatic cirrhosis type: alcoholic cirrhosis Ascites presence: with ascites Qualified Code(s): K70.31 - Alcoholic cirrhosis of liver with ascites (2) Alcoholism Current Visit: Yes Status: Acute - Time Spent With Patient Total time spent is greater than 50% in coordination of care (as documented) at patient's floor/unit and/or counseling patient: GI History of Present Illness - Data of Consult Patient: new to practice Consult date: 09/25/17 Requesting Physician: Judy Davis - Consult Narrative Reason for consult: Cirrhosis History of present illness: Ms. Boone is a 47 year old female with PMHx of fibromyalgia, ETOH abuse, methamphetamine use, fatty liver presented to the ED with complaints of lower extremity swelling with abdominal distention that started in the last few weeks. She was admitted for "decompensated" cirrhosis. She drinks approximately 10 beers a week and about of liquor per week for the last 4-5 years. She mentioned that she first used amphetamine 4 days prior to admission. We have been consulted to evaluate her cirrhosis. She has never seen GI specialist. She reports drinking 1-2 beers per day, and a bottle of [employer] on the weekend. Procedures: None NSAIDs: None Anticoagulation: None Past Med Surg Social Fam HX - Past Medical History Medical history: no medical history, fibromyalgia, other Additional medical history: ETOH abuse. meth use. fatty liver. Restless Leg Syndrome Psychiatric history: no psych history, other (ETOH abuse and illicit drug use) - Past Surgical History Surgical History: no surgical history Additional surgical history: back. biopsy of breast-benign. abscess of colon removed - Social History Smoking Status: Current every day smoker Packs per day: 1 Smokeless Tobacco Status: No Alcohol use: heavy Drug use: marijuana, methamphetamine, prescription drug abuse - Gastrointestinal Gastrointestinal: Present: as per HPI - Constitutional Constitutional: as per HPI - EENT Eyes: as per HPI Ears: Present: as per HPI Nose, mouth and throat: Present: as per HPI - Cardiovascular Cardiovascular ROS: Present: as per HPI - Respiratory Respiratory IM: Present: as per HPI - Genitourinary Genitourinary: Absent: change in color, Urinary frequency - Neurological ROS Neurological GI: Present: as per HPI - Hematologic/Lymphatic Hematologic/Lymphatic pediatric: Present: as per HPI - Musculoskeletal Musculoskeletal ROS GI: Present: as per HPI - Integumentary Integumentary GI: Present: as per HPI - Psychiatric ROS Psychiatric GI: Present: as per HPI - Endocrine Endocrine IM: Present: as per HPI - Constitutional Vitals: Temp Pulse Resp BP Pulse Ox 97.3 F L 81 20 94/54 99 09/25/17 10:38 09/25/17 11:14 09/25/17 11:14 09/25/17 11:14 09/25/17 11:14 General appearance: Present: cooperative, A&O X 3, no acute distress, answers questions appropriately - Head Head exam: Present: atraumatic, normocephalic - Eye Eye exam: Present: normal appearance, sclera anicteric - ENT ENT exam: Present: mucous membranes moist - Neck Neck exam general surgery: Present: normal inspection, trachea midline - Respiratory Respiratory exam: Present: CTAB. Absent: rales, rhonchi - Cardiovascular Cardiovascular exam: Present: RRR, +S1, +S2 - GI/Abdominal GI/Abdominal exam: Present: distended, soft, no peritoneal signs. Absent: firm , guarding, tenderness - Expanded GI/Abdominal Exam GI/Abdominal exam expanded: Present: ascites - Rectal Rectal exam: Present: deferred - Extremities Exam Extremities exam: Present: warm - Neurological Exam Neurological exam: Present: no focal deficits - Psychiatric Psychiatric exam: Present: normal affect, normal mood - Skin Skin exam: Present: dry, intact, normal color, warm Results - Labs CBC & Chem 7: 09/26/17 05:13 09/26/17 05:13 Labs: Last Result Calcium 7.5 mg/dL (8.6-10.3) L 09/25/17 01:39 Iron 142 mcg/dL (50-170) 09/25/17 01:39 % Saturation 82 % (15-50) H 09/25/17 01:39 Transferrin 124 mg/dL (203-362) L 09/25/17 01:39 Ferritin 209 ng/mL (10-120) H 09/25/17 01:39 Troponin I < 0.03 ng/mL (< 0.04) 09/24/17 17:00 Vitamin B12 883 pg/mL (250-1100) 09/25/17 01:39 Folate 2.7 ng/mL (3.0-16.0) L 09/25/17 01:39 Stool Occult Blood Negative (Negative) 09/24/17 18:11 Urine Opiates Screen Negative ng/mL (Scbizc=810) 09/24/17 19:00 Entire Visit Hgb 10.1 g/dL (11.5-15.4) L D 09/25/17 01:39 Hct 30.8 % (35.3-44.9) L 09/25/17 01:39 PT 24.4 Seconds (9.4-12.1) H 09/25/17 01:39 Ferritin 209 ng/mL (10-120) H 09/25/17 01:39 Total Bilirubin 3.6 mg/dL (0.3-1.0) H 09/25/17 01:39 AST 73 Units/L (13-39) H 09/25/17 01:39 ALT 8 Units/L (7-52) 09/25/17 01:39 Folate 2.7 ng/mL (3.0-16.0) L 09/25/17 01:39 - ABG ABG results: PT/INR, D-dimer PT 24.4 Seconds (9.4-12.1) H 09/25/17 01:39
[2017-09-25] MEDS ORDERED: *HR* Phytonadione 5 MG TABLET PO ONE (14:28)
[2017-09-25 14:53] LABS: Hepatitis A Antibody IgM Nonreactive (Nonreactive); Hepatitis B Core IgM Nonreactive (Nonreactive); Hepatitis B Surface Antigen Nonreactive (Nonreactive); Hepatitis C Virus Antibody Nonreactive (Nonreactive)
[2017-09-25] MEDS: Albumin 25% 25gram/100mL 25 GM/100 ML IV.SOLN IVPB SCH ×2 (15:30→17:00)
--- NOTE | 2017-09-25 16:07 | Pulmonology Consult Note ---
<Sandy Mccracken M - Last Filed: 09/25/17 16:13> Date of Encounter: 09/25/17 Medications and Allergies Albuterol Sulfate [Albuterol Inhaler] 1 puff IH Q4HR PRN 09/24/17 [History] 3 Allergy/AdvReac Type Severity Reaction Status Date / Time No Known Allergies Allergy Verified 09/24/17 16:35 All Systems: The remainder of the systems were reviewed and are negative Physical Examination Vital Signs: Vital Signs, Last 4 Hours Temp Pulse Resp BP Pulse Ox 09/25/17 15:14 97.7 F 76 90/67 95 09/25/17 14:21 89 20 98/64 96 09/25/17 12:36 78 20 99/71 97 Results - Laboratory Findings CBC and BMP: 09/25/17 01:39 09/25/17 01:39 PT/INR, D-dimer PT 24.4 Seconds (9.4-12.1) H 09/25/17 01:39 Abnormal lab findings: Abnormal lab results WBC 17.7 K/mcL (4.3-11.1) H 09/25/17 01:39 RBC 2.60 M/mcL (3.82-4.97) L 09/25/17 01:39 Hgb 10.1 g/dL (11.5-15.4) L D 09/25/17 01:39 Hct 30.8 % (35.3-44.9) L 09/25/17 01:39 MCV 118.5 fL (83.0-100.0) H 09/25/17 01:39 MCH 38.8 pg (28.0-33.3) H 09/25/17 01:39 RDW 17.1 % (11.5-14.5) H 09/25/17 01:39 Neutrophils # 15.0 K/mcL (1.6-8.9) H 09/25/17 01:39 Anisocytosis 1+ (Not Present) A 09/25/17 01:39 Macrocytosis Present (Not Present) A 09/25/17 01:39 Immature Retic Fraction 39.0 % (11.0-38.0) H 09/25/17 01:39 Retic Hgb Equivalent 41.4 pg (28.61-36.33) H 09/25/17 01:39 PT 24.4 Seconds (9.4-12.1) H 09/25/17 01:39 APTT 37.7 Seconds (26.0-36.0) H 09/25/17 01:39 BUN 4 mg/dL (6-20) L 09/25/17 01:39 Creatinine 0.44 mg/dL (0.60-1.20) L 09/25/17 01:39 POC Glucose 110 mg/dL (70-99) H 09/24/17 16:53 Calculated Osmolality 278 (280-300) L 09/25/17 01:39 Calcium 7.5 mg/dL (8.6-10.3) L 09/25/17 01:39 % Saturation 82 % (15-50) H 09/25/17 01:39 Transferrin 124 mg/dL (203-362) L 09/25/17 01:39 Ferritin 209 ng/mL (10-120) H 09/25/17 01:39 Total Bilirubin 3.6 mg/dL (0.3-1.0) H 09/25/17 01:39 Direct Bilirubin 1.6 mg/dL (0.0-0.2) H 09/24/17 17:00 Indirect Bilirubin 1.4 mg/dL (0.0-1.2) H 09/24/17 17:00 AST 73 Units/L (13-39) H 09/25/17 01:39 Alkaline Phosphatase 194 Units/L (34-104) H 09/25/17 01:39 B-Natriuretic Peptide 218 pg/mL (Less than 100) H 09/24/17 17:00 Albumin 2.7 g/dL (3.5-5.7) L 09/25/17 01:39 Globulin 3.7 g/dL (2.4-3.5) H 09/25/17 01:39 Albumin/Globulin Ratio 0.7 (1.1-2.2) L 09/25/17 01:39 Folate 2.7 ng/mL (3.0-16.0) L 09/25/17 01:39 Urine Color [place] (Yellow) A 09/24/17 17:15 Urine Clarity Cloudy (Clear) A 09/24/17 17:15 Urine Protein 30 mg/dL (Neg-Trace) H 09/24/17 17:15 Urine Ketones Trace mg/dL (Negative) H 09/24/17 17:15 Urine Blood Large (Negative) H 09/24/17 17:15 Urine Nitrite Positive (Negative) A 09/24/17 17:15 Urine Bilirubin Moderate (Negative) H 18 17:15 Ur Leukocyte Esterase Large (Negative) H 09/24/17 17:15 Urine Microscopic RBC 5-15 per hpf (0-3) H 09/24/17 17:15 Urine Microscopic WBC TNTC per hpf (0-3) H 09/24/17 17:15 Ur Squamous Epith Cells Many per lpf (None-Few) H 09/24/17 17:15 Urine Bacteria Moderate per hpf (None-Few) H 09/24/17 17:15 Ur Culture Indicated? NO. (NO) A 09/24/17 17:15 Ur Amphetamines Screen Positive ng/mL (Dcsuex=7957) H 09/24/17 19:00 U Benzodiazepines Scrn Positive ng/mL (Fgoejl=960) H 09/24/17 19:00 - Clinical Findings Intake & Output: Intake & Output 09/25/1718 1818 07:59 15:59 23:59 Intake Total 0 / 0 240 / 240 Output Total 600 / 600 350 / 350 Balance -600 / -600 -110 / -110 Consult Discharge Plan - Plan Referrals: NONE,PCP [Primary Care Provider] - - Attending Attestation I examined this patient and my medical decision-making was reviewed with the Resident Physician. I agree with the documented findings, disposition and treatment plan as described except to the extent set forth below. Patient seen and examined. I was called by the hospitalist to evaluate this patient with concern of elevated lactic acid and hypertension with oliguria Labs, radiology, chart personally reviewed. Agree with resident's history and physical, assessment, plan with following comments: [employer]CHNICIAN: Patient follows commands, Pulmonary: Acceptable oxygenation and ventilation Cardiovascular: Patient with normal MAP and I suspect systolic pressure is relatively low due to patient has liver cirrhosis and has been receiving sedatives for her history of alcohol abuse and following [facility] protocol. GI: Nutrition per dietary and GI prophylaxis per routine I have explained to patient she needs to quit drinking alcohol to have any chance to have good prognosis and she understand that. Examination patient has evidence of ascites and paracentesis needs to be done when INR is below 2. Heme: DVT prophylaxis per routine patient with coagulopathy secondary to her liver disease and she has received vitamin K and distal Lovenox due to neuropathy. ID: Continue antibiotics and plan to de-escalation. Lactic acid is most likely mildly elevated due to her underlying liver disease and empiric antibiotic at this time until we have fluid to evaluate for any SBP my suspicion this is most likely secondary to liver disease and sepsis is less likely Renal; urine out put and renal funtion reviewed. Patient albumin resuscitation Endorcine: blood glucose is monitored Lines: all lines checked and no evidence of infections Skin: skin care to prevent pressure ulcers per nursing routine care Patient was transferred to ICU as the [facility]. Thank you for consultation <Renate Grant - Last Filed: 09/25/17 21:22> Date of Encounter: 09/25/17 Time of Encounter: 16:07 Assessment and Plan (1) Cirrhosis Current Visit: Yes Status: Chronic - Secondary to alcohol abuse - Reported last Monday evening - CIWA protocol, has been requiring large amounts of ativan - Evidence on anasarca on CT scan. Hepatomegaly with hepatic steatosis vs diffuse hepatocellular change - Liver US pending - INR 2.2. - Has been boarderline hypotensive and requiring large amounts of ativan. Transferred to ICU for further management and anticipation of vasopressor support. - MELD score 20, 6% mortality in the next 3 months Plan - Plan for diagnostic paracentesis when INR normalizes - CIUT protocol, neuro checks - Monitor for pressor need. BP responding to albumin. - Will give albumin and discontinue NS for hemodynamic stability - Vitamin replacement. Qualifiers: Hepatic cirrhosis type: alcoholic cirrhosis Ascites presence: with ascites Qualified Code(s): K70.31 - Alcoholic cirrhosis of liver with ascites (2) Liver failure Current Visit: Yes Status: Chronic - As above for cirrhosis Qualifiers: Liver failure chronicity: unspecified chronicity Hepatic coma status: without hepatic coma Qualified Code(s): K72.90 - Hepatic failure, unspecified without coma (3) Severe sepsis Current Visit: Yes Status: Suspected - Less likely sepsis at this time - Hemodynamics and lactic acidosis more likely to cirrhosis as above - HR 98 and WBC of 13.3 on admission. Lactic acid of 3.7, downtrended to 1.7 - Will cover with empiric ceftriaxone and monitor (4) Alcoholism Current Visit: Yes Status: Acute - As above for cirrhosis - CIWA, vitamins. (5) Perianal abscess Current Visit: Yes Status: Acute - As seen on CT scan. - Unlikely source of infection. Surgery consulted by hospitalist service. (6) DVT prophylaxis Current Visit: Yes Status: Acute INR 2.2, secondary to liver failure. History of Present Illness Consult date: 09/25/17 Reason for consult: other Chief complaint: Swelling of lower extremities and abdomen History of present illness: Ms. Boone is a 47 year-old female who presented to the ED with c/o BLE swelling , abdominal swelling, and dyspnea. These symptoms have been progressing over several months, but have recently gotten worse, as per patient. The pt has h/o EtOH abuse (last drink was yesterday), methamphetamine use, and fatty liver. Critical care was consulted for hypotension and possible need for vasopressor support. Patient has been in CIWA protocol and requiring large amounts of ativan as well as possible severe sepsis with a lactic acid of 3.7 on presentation. On interview, patient had continued complaint of abdominal swelling, LE swelling , dyspnea, nausea but she denied CP, fevers, chills. Past Med Surg Social Fam HX - Past Medical History Medical history: no medical history, fibromyalgia, other Additional medical history: ETOH abuse. meth use. fatty liver. Restless Leg Syndrome Psychiatric history: no psych history, other (ETOH abuse and illicit drug use) - Past Surgical History Surgical History: no surgical history Additional surgical history: back. biopsy of breast-benign. abscess of colon removed - Social History Smoking Status: Current every day smoker Packs per day: 1 Smokeless Tobacco Status: No Alcohol use: heavy Drug use: marijuana, methamphetamine, prescription drug abuse All Systems: The remainder of the systems were reviewed and are negative - Constitutional Constitutional: no chills, no fatigue, no fever(s) - Cardiovascular Cardiovascular: dyspnea, dyspnea on exertion, edema, pedal edema, no chest pain , no chest pain at rest - Respiratory Respiratory: dyspnea, dyspnea on exertion, no cough - Gastrointestinal Gastrointestinal: other (swelling) Physical Examination Vital Signs: Vital Signs, Last 4 Hours Temp Pulse Resp BP Pulse Ox 09/25/17 15:14 97.7 F 76 90/67 95 09/25/17 14:21 89 20 98/64 96 09/25/17 12:36 78 20 99/71 97 General appearance: no acute distress, alert ENT: oropharynx dry Neck: supple, no lymphadenopathy Effort: normal Inspection: normal Auscultation: bilateral: clear Cardiovascular: regular rate and rhythm Gastrointestinal: normoactive bowel sounds, soft, non-tender, other (distended abdomen) Extremities: no cyanosis, pink and warm, edema normal mental status, non-focal exam mood appropriate, affect normal Results - Laboratory Findings CBC and BMP: 09/25/17 01:39 09/25/17 01:39 PT/INR, D-dimer PT 24.4 Seconds (9.4-12.1) H 09/25/17 01:39 Abnormal lab findings: Abnormal lab results WBC 17.7 K/mcL (4.3-11.1) H 09/25/17 01:39 RBC 2.60 M/mcL (3.82-4.97) L 09/25/17 01:39 Hgb 10.1 g/dL (11.5-15.4) L D 09/25/17 01:39 Hct 30.8 % (35.3-44.9) L 09/25/17 01:39 MCV 118.5 fL (83.0-100.0) H 09/25/17 01:39 MCH 38.8 pg (28.0-33.3) H 09/25/17 01:39 RDW 17.1 % (11.5-14.5) H 09/25/17 01:39 Neutrophils # 15.0 K/mcL (1.6-8.9) H 09/25/17 01:39 Anisocytosis 1+ (Not Present) A 09/25/17 01:39 Macrocytosis Present (Not Present) A 09/25/17 01:39 Immature Retic Fraction 39.0 % (11.0-38.0) H 09/25/17 01:39 Retic Hgb Equivalent 41.4 pg (28.61-36.33) H 09/25/17 01:39 PT 24.4 Seconds (9.4-12.1) H 09/25/17 01:39 APTT 37.7 Seconds (26.0-36.0) H 09/25/17 01:39 BUN 4 mg/dL (6-20) L 09/25/17 01:39 Creatinine 0.44 mg/dL (0.60-1.20) L 09/25/17 01:39 POC Glucose 110 mg/dL (70-99) H 09/24/17 16:53 Calculated Osmolality 278 (280-300) L 09/25/17 01:39 Calcium 7.5 mg/dL (8.6-10.3) L 09/25/17 01:39 % Saturation 82 % (15-50) H 09/25/17 01:39 Transferrin 124 mg/dL (203-362) L 09/25/17 01:39 Ferritin 209 ng/mL (10-120) H 09/25/17 01:39 Total Bilirubin 3.6 mg/dL (0.3-1.0) H 09/25/17 01:39 Direct Bilirubin 1.6 mg/dL (0.0-0.2) H 09/24/17 17:00 Indirect Bilirubin 1.4 mg/dL (0.0-1.2) H 09/24/17 17:00 AST 73 Units/L (13-39) H 09/25/17 01:39 Alkaline Phosphatase 194 Units/L (34-104) H 09/25/17 01:39 B-Natriuretic Peptide 218 pg/mL (Less than 100) H 09/24/17 17:00 Albumin 2.7 g/dL (3.5-5.7) L 09/25/17 01:39 Globulin 3.7 g/dL (2.4-3.5) H 09/25/17 01:39 Albumin/Globulin Ratio 0.7 (1.1-2.2) L 09/25/17 01:39 Folate 2.7 ng/mL (3.0-16.0) L 09/25/17 01:39 Urine Color [place] (Yellow) A 09/24/17 17:15 Urine Clarity Cloudy (Clear) A 09/24/17 17:15 Urine Protein 30 mg/dL (Neg-Trace) H 09/24/17 17:15 Urine Ketones Trace mg/dL (Negative) H 09/24/17 17:15 Urine Blood Large (Negative) H 09/24/17 17:15 Urine Nitrite Positive (Negative) A 09/24/17 17:15 Urine Bilirubin Moderate (Negative) H 09/24/17 17:15 Ur Leukocyte Esterase Large (Negative) H 09/24/17 17:15 Urine Microscopic RBC 5-15 per hpf (0-3) H 09/24/17 17:15 Urine Microscopic WBC TNTC per hpf (0-3) H 09/24/17 17:15 Ur Squamous Epith Cells Many per lpf (None-Few) H 09/24/17 17:15 Urine Bacteria Moderate per hpf (None-Few) H 09/24/17 17:15 Ur Culture Indicated? NO. (NO) A 09/24/17 17:15 Ur Amphetamines Screen Positive ng/mL (Wqjlpg=0875) H 09/24/17 19:00 U Benzodiazepines Scrn Positive ng/mL (Amlztq=789) H 09/24/17 19:00 - Clinical Findings Intake & Output: Intake & Output 09/25/17 09/25/17 09/25/17 07:59 15:59 23:59 Intake Total 0 / 0 240 / 240 Output Total 600 / 600 350 / 350 Balance -600 / -600 -110 / -110
[2017-09-25 16:41] LABS: Adenovirus F 40/41 PCR Not detected (Not detect); Astrovirus PCR Not detected (Not detect); C.difficile Toxin A/B by PCR Not detected (Not detect); Campylobacter by PCR Not detected (Not detect); Cryptosporidium by PCR Not detected (Not detect); Cyclospora cayetanensis PCR Not detected (Not detect); E. coli O157 by PCR Not detected (Not detect); Entamoeba histolytica PCR Not detected (Not detect); Enteroaggregative E.coli(EAEC) Not detected (Not detect); Enteropathogenic E.coli(EPEC) Not detected (Not detect); Enterotoxigenic E.coli (ETEC) Not detected (Not detect); Giardia lamblia PCR Not detected (Not detect); Norovirus GI/GII PCR Not detected (Not detect); Plesiomonas shigelloides PCR Not detected (Not detect); Rotavirus A PCR Not detected (Not detect); Salmonella PCR Not detected (Not detect); Sapovirus PCR Not detected (Not detect); Shig/EnteroinvasiveE coli EIEC Not detected (Not detect); Shigalike tox-prod E coli STEC Not detected (Not detect); Vibrio PCR Not detected (Not detect); Vibrio cholerae PCR Not detected (Not detect); Yersinia enterocolitica PCR Not detected (Not detect)
[2017-09-25] MEDS: Pantoprazole 40 MG VIAL IVP SCH (18:13)
[2017-09-26] MEDS: *HR* LORazepam 2 MG/ML VIAL IVP PRN ×2 (03:01→05:50)
[2017-09-26] MEDS: Nicotine 21 MG PATCH.TD24 TD SCH ×2 (03:04→08:17)
[2017-09-26 05:36] LABS: Basophils % 0.2 %; Eosinophils # 0.1 K/mcL (0.0-0.6); Eosinophils % 0.6 %; Hematocrit 29.7 % (35.3-44.9); Hemoglobin 9.6 g/dL (11.5-15.4); Immature Granulocytes % 0.5 % (0-4); Lymphocytes # 1.5 K/mcL (0.6-4.6); Lymphocytes % 11.5 %; Mean Corpuscular HGB Conc 32.3 g/dL (31.6-35.5); Mean Corpuscular Hemoglobin 38.9 pg (28.0-33.3); Mean Corpuscular Volume 120.2 fL (83.0-100.0); Mean Platelet Volume 10.4 fL (9.4-12.4); Monocytes # 0.8 K/mcL (0.0-1.3); Monocytes % 5.9 %; Neutrophils # 10.4 K/mcL (1.6-8.9); Platelet Count 139 K/mcL (140-400); Red Blood Count 2.47 M/mcL (3.82-4.97); Segmented Neutrophils % 81.3 %
[2017-09-26] MEDS: Pantoprazole 40 MG VIAL IVP SCH (05:49)
[2017-09-26 05:53] LABS: Anisocytosis 1+ (Not Present); Macrocytosis Present (Not Present)
[2017-09-26 05:54] LABS: Platelet Estimate Decreased (Normal)
[2017-09-26 05:57] LABS: Alanine Aminotransferase 6 Units/L (7-52); Albumin 2.9 g/dL (3.5-5.7); Alkaline Phosphatase 171 Units/L (34-104); Aspartate Amino Transferase 43 Units/L (13-39); BUN/Creatinine Ratio 10 (6-26); Bilirubin,Total 2.3 mg/dL (0.3-1.0); Blood Urea Nitrogen 4 mg/dL (6-20); Calcium 7.8 mg/dL (8.6-10.3); Carbon Dioxide 27 mEq/L (23-29); Chloride 105 mEq/L (98-107); Glucose 101 mg/dL (70-105); Magnesium 1.9 mg/dL (1.6-2.6); Osmolality,Calculated 281 (280-300); Potassium 3.6 mEq/L (3.5-5.1); Sodium 137 mEq/L (136-145); Total Protein 5.9 g/dL (6.4-8.9); eGFR For African Americans > 60 (> 60); eGFR For Non-African Americans > 60 (> 60)
[2017-09-26] MEDS: Lactobacillus 1 EACH CAP.SPRINK PO SCH (08:17)
--- NOTE | 2017-09-26 08:41 | Pulmonology Progress Note ---
<NawafSandy M - Last Filed: 09/26/17 17:43> Date of Encounter: 09/26/17 Objective PUL Vital signs: Last Vital Signs Temp 98.1 F 09/26/17 16:00 Pulse 84 09/26/17 16:00 Resp 18 09/26/17 16:00 BP 104/63 09/26/17 16:00 Pulse Ox 96 09/26/17 16:00 Results - Laboratory Findings CBC and BMP: 09/26/17 05:13 09/26/17 05:13 PT/INR, D-dimer PT 25.8 Seconds (9.4-12.1) H 09/26/17 10:08 Abnormal lab findings: Abnormal lab results WBC 12.8 K/mcL (4.3-11.1) H 09/26/17 05:13 RBC 2.47 M/mcL (3.82-4.97) L 09/26/17 05:13 Hgb 9.6 g/dL (11.5-15.4) L 09/26/17 05:13 Hct 29.7 % (35.3-44.9) L 09/26/17 05:13 MCV 120.2 fL (83.0-100.0) H 09/26/17 05:13 MCH 38.9 pg (28.0-33.3) H 09/26/17 05:13 RDW 17.0 % (11.5-14.5) H 09/26/17 05:13 Plt Count 139 K/mcL (140-400) L 09/26/17 05:13 Neutrophils # 10.4 K/mcL (1.6-8.9) H 09/26/17 05:13 Platelet Estimate Decreased (Normal) L 09/26/17 05:13 Anisocytosis 1+ (Not Present) A 09/26/17 05:13 Macrocytosis Present (Not Present) A 09/26/17 05:13 Immature Retic Fraction 39.0 % (11.0-38.0) H 09/25/17 01:39 Retic Hgb Equivalent 41.4 pg (28.61-36.33) H 09/25/17 01:39 PT 25.8 Seconds (9.4-12.1) H 09/26/17 10:08 APTT 37.7 Seconds (26.0-36.0) H 09/25/17 01:39 BUN 4 mg/dL (6-20) L 09/26/17 05:13 Creatinine 0.41 mg/dL (0.60-1.20) L 09/26/17 05:13 Calcium 7.8 mg/dL (8.6-10.3) L 09/26/17 05:13 % Saturation 82 % (15-50) H 09/25/17 01:39 Transferrin 124 mg/dL (203-362) L 09/25/17 01:39 Ferritin 209 ng/mL (10-120) H 09/25/17 01:39 Total Bilirubin 2.3 mg/dL (0.3-1.0) H 09/26/17 05:13 Direct Bilirubin 1.6 mg/dL (0.0-0.2) H 09/24/17 17:00 Indirect Bilirubin 1.4 mg/dL (0.0-1.2) H 09/24/17 17:00 AST 43 Units/L (13-39) H 09/26/17 05:13 ALT 6 Units/L (7-52) L 09/26/17 05:13 Alkaline Phosphatase 171 Units/L (34-104) H 09/26/17 05:13 B-Natriuretic Peptide 218 pg/mL (Less than 100) H 09/24/17 17:00 Serum Total Protein 5.9 g/dL (6.4-8.9) L 09/26/17 05:13 Albumin 2.9 g/dL (3.5-5.7) L 09/26/17 05:13 Albumin/Globulin Ratio 1.0 (1.1-2.2) L 09/26/17 05:13 Lfeus-5-Ksnlplzmsla 222 mg/dL (90-200) H 09/25/17 12:12 Folate 2.7 ng/mL (3.0-16.0) L 09/25/17 01:39 Urine Color [place] (Yellow) A 09/24/17 17:15 Urine Clarity Cloudy (Clear) A 09/24/17 17:15 Urine Protein 30 mg/dL (Neg-Trace) H 09/24/17 17:15 Urine Ketones Trace mg/dL (Negative) H 09/24/17 17:15 Urine Blood Large (Negative) H 09/24/17 17:15 Urine Nitrite Positive (Negative) A 09/24/17 17:15 Urine Bilirubin Moderate (Negative) H 09/24/17 17:15 Ur Leukocyte Esterase Large (Negative) H 09/24/17 17:15 Urine Microscopic RBC 5-15 per hpf (0-3) H 09/24/17 17:15 Urine Microscopic WBC TNTC per hpf (0-3) H 09/24/17 17:15 Ur Squamous Epith Cells Many per lpf (None-Few) H 09/24/17 17:15 Urine Bacteria Moderate per hpf (None-Few) H 09/24/17 17:15 Ur Culture Indicated? NO. (NO) A 09/24/17 17:15 Ur Amphetamines Screen Positive ng/mL (Swmkux=1866) H 09/24/17 19:00 U Benzodiazepines Scrn Positive ng/mL (Dzuccr=230) H 09/24/17 19:00 - Microbiology Findings Microbiology Findings: Microbiology, Last 48 Hours 09/24/17 23:26 Urine Culture - Preliminary Urine,Clean Catch No growth. - Clinical Findings Intake & Output: Intake & Output 09/26/1718 18 07:59 15:59 23:59 Intake Total 400 / 400 380 / 380 360 / 360 Output Total 925 / 925 300 / 300 Balance -525 / -525 80 / 80 360 / 360 Weight 103.3 kg Consult Discharge Plan - Plan Referrals: NONE,PCP [Primary Care Provider] - - Attending Attestation I examined this patient and my medical decision-making was reviewed with the Resident Physician. I agree with the documented findings, disposition and treatment plan as described except to the extent set forth below. Patient seen and examined. Labs, radiology, chart personally reviewed. 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 Patient needs to follow up with GI Heme: DVT prophylaxis per routine ID: Continue antibiotics and plan to de-escalation Renal; urine out put and renal funtion reviewed Endorcine: blood glucose is monitored Lines: all lines checked and no evidence of infections Skin: skin care to prevent pressure ulcers per nursing routine care <Renate Grant - Last Filed: 09/26/17 19:37> Date of Encounter: 09/26/17 Time of Encounter: 08:00 Assessment and Plan (1) Cirrhosis Current Visit: Yes Status: Chronic - Secondary to alcohol abuse - Evidence of anasarca on CT scan; hepatomegaly with hepatic steatosis vs diffuse hepatocellular change - RUQ US shows chronic liver parenchymal changes and/or hepatic steatosis; peripheral ascites - INR 2.4 - MELD score 20, 6% mortality in the next 3 months Plan - Plan for diagnostic paracentesis when INR normalizes - Stopped CIWA, IV ativan stopped and replaced with PO - Vitamin, thiamine, folate replacement Spoke with admitting hospitalist, Dr. Palmer, who accepted pt (approx 13:15) Qualifiers: Hepatic cirrhosis type: alcoholic cirrhosis Ascites presence: with ascites Qualified Code(s): K70.31 - Alcoholic cirrhosis of liver with ascites (2) Liver failure Current Visit: Yes Status: Chronic As above Qualifiers: Liver failure chronicity: unspecified chronicity Hepatic coma status: without hepatic coma Qualified Code(s): K72.90 - Hepatic failure, unspecified without coma (3) Severe sepsis Current Visit: Yes Status: Suspected - Unlikely truly septic at this time - Criteria met on admission: HR 98, WBC of 13.3, lactic acid of 3.7 - Lactate trended down to 1.7 - White count trending down, 12.8 today - Hemodynamics and lactic acidosis more likely to cirrhosis as above - BP's stable with systolic in high 90's to low 100's - Afebrile, no tachycardia - continue empiric ceftriaxone and monitor (4) Alcoholism Current Visit: Yes Status: Acute As above (5) Perianal abscess Current Visit: Yes Status: Acute (6) DVT prophylaxis Current Visit: Yes Status: Acute EPCD's Subjective Interval history: Pt seen and examined this morning at bedside. On entering the room pt sleeping in bed. States she feels "rough." Denies chest pain, shortness of breath, vomiting. Admits tremors, alternating fevers/chills, abdominal pain, and nausea. When asked about visual/auditory/tactile hallucinations, she states she' s seen "sparkles." Objective PUL Vital signs: Last Vital Signs Temp 98.0 F 09/26/17 07:38 Pulse 82 09/26/17 08:20 Resp 18 09/26/17 08:20 BP 101/61 09/26/17 08:20 Pulse Ox 100 09/26/17 08:20 General appearance: no acute distress, asleep Effort: normal Auscultation: right: wheezes Cardiovascular: regular rate and rhythm Gastrointestinal: normoactive bowel sounds, non-tender, other (distended) Extremities: no cyanosis, pink and warm, pulses normal, edema (BLE, +1 pitting) normal mental status, non-focal exam, motor strength normal and symmetric Results - Laboratory Findings CBC and BMP: 09/26/17 05:13 09/26/17 05:13 PT/INR, D-dimer PT 24.4 Seconds (9.4-12.1) H 09/25/17 01:39 Abnormal lab findings: Abnormal lab results WBC 12.8 K/mcL (4.3-11.1) H 09/26/17 05:13 RBC 2.47 M/mcL (3.82-4.97) L 09/26/17 05:13 Hgb 9.6 g/dL (11.5-15.4) L 09/26/17 05:13 Hct 29.7 % (35.3-44.9) L 09/26/17 05:13 MCV 120.2 fL (83.0-100.0) H 09/26/17 05:13 MCH 38.9 pg (28.0-33.3) H 09/26/17 05:13 RDW 17.0 % (11.5-14.5) H 09/26/17 05:13 Plt Count 139 K/mcL (140-400) L 09/26/17 05:13 Neutrophils # 10.4 K/mcL (1.6-8.9) H 09/26/17 05:13 Platelet Estimate Decreased (Normal) L 09/26/17 05:13 Anisocytosis 1+ (Not Present) A 09/26/17 05:13 Macrocytosis Present (Not Present) A 09/26/17 05:13 Immature Retic Fraction 39.0 % (11.0-38.0) H 09/25/17 01:39 Retic Hgb Equivalent 41.4 pg (28.61-36.33) H 09/25/17 01:39 PT 24.4 Seconds (9.4-12.1) H 09/25/17 01:39 APTT 37.7 Seconds (26.0-36.0) H 09/25/17 01:39 BUN 4 mg/dL (6-20) L 09/26/17 05:13 Creatinine 0.41 mg/dL (0.60-1.20) L 09/26/17 05:13 Calcium 7.8 mg/dL (8.6-10.3) L 09/26/17 05:13 % Saturation 82 % (15-50) H 09/25/17 01:39 Transferrin 124 mg/dL (203-362) L 09/25/17 01:39 Ferritin 209 ng/mL (10-120) H 09/25/17 01:39 Total Bilirubin 2.3 mg/dL (0.3-1.0) H 09/26/17 05:13 Direct Bilirubin 1.6 mg/dL (0.0-0.2) H 09/24/17 17:00 Indirect Bilirubin 1.4 mg/dL (0.0-1.2) H 09/24/17 17:00 AST 43 Units/L (13-39) H 09/26/17 05:13 ALT 6 Units/L (7-52) L 09/26/17 05:13 Alkaline Phosphatase 171 Units/L (34-104) H 09/26/17 05:13 B-Natriuretic Peptide 218 pg/mL (Less than 100) H 09/24/17 17:00 Serum Total Protein 5.9 g/dL (6.4-8.9) L 09/26/17 05:13 Albumin 2.9 g/dL (3.5-5.7) L 09/26/17 05:13 Albumin/Globulin Ratio 1.0 (1.1-2.2) L 09/26/17 05:13 Folate 2.7 ng/mL (3.0-16.0) L 09/25/17 01:39 Urine Color [place] (Yellow) A 09/24/17 17:15 Urine Clarity Cloudy (Clear) A 09/24/17 17:15 Urine Protein 30 mg/dL (Neg-Trace) H 09/24/17 17:15 Urine Ketones Trace mg/dL (Negative) H 09/24/17 17:15 Urine Blood Large (Negative) H 09/24/17 17:15 Urine Nitrite Positive (Negative) A 09/24/17 17:15 Urine Bilirubin Moderate (Negative) H 09/24/17 17:15 Ur Leukocyte Esterase Large (Negative) H 09/24/17 17:15 Urine Microscopic RBC 5-15 per hpf (0-3) H 09/24/17 17:15 Urine Microscopic WBC TNTC per hpf (0-3) H 09/24/17 17:15 Ur Squamous Epith Cells Many per lpf (None-Few) H 09/24/17 17:15 Urine Bacteria Moderate per hpf (None-Few) H 09/24/17 17:15 Ur Culture Indicated? NO. (NO) A 09/24/17 17:15 Ur Amphetamines Screen Positive ng/mL (Tgkamt=3286) H 09/24/17 19:00 U Benzodiazepines Scrn Positive ng/mL (Lwrqvt=780) H 09/24/17 19:00 - Microbiology Findings Microbiology Findings: Microbiology, Last 48 Hours 09/24/17 23:26 Urine Culture - Preliminary Urine,Clean Catch No growth. - Clinical Findings Intake & Output: Intake & Output 09/25/17 09/26/17 09/26/17 23:59 07:59 15:59 Intake Total 200 / 200 400 / 400 0 / 0 Output Total 100 / 100 925 / 925 0 / 0 Balance 100 / 100 -525 / -525 0 / 0 Weight 103.3 kg - VTE Documentation of Mechanical Device: Intermittent pneumatic compression device
[2017-09-26] MEDS ORDERED: Folic Acid 1 MG TABLET PO SCH (09:00)
[2017-09-26] MEDS ORDERED: cefTRIAXone 2,000 MG in Water for inj. (sterile) 20 ML 20 ML IVP SCH (09:00)
[2017-09-26] MEDS ORDERED: Multivit/Ca/Min/Fe/FA 1 TAB TABLET PO SCH (09:00)
[2017-09-26] MEDS ORDERED: Thiamine (B-1) 100 MG TABLET PO SCH (09:00)
[2017-09-26 10:36] LABS: INR 2.4; Prothrombin Time 25.8 Seconds (9.4-12.1)
[2017-09-26] MEDS ORDERED: *HR* LORazepam 1 MG TABLET PO PRN ×3 (11:19→11:30)
[2017-09-26] MEDS ORDERED: Naloxone 0.4 MG/ML INJ IVP PRN (11:30)
[2017-09-26 15:21] LABS: AFP Tumor Marker Non-Pregnant 2 ng/mL (0-9)
[2017-09-26] MEDS: *HR* LORazepam 1 MG TABLET PO PRN (19:06)
[2017-09-27] MEDS: *HR* LORazepam 1 MG TABLET PO PRN ×3 (01:10→15:00)
[2017-09-27 08:57] LABS: INR 2.2; Prothrombin Time 24.4 Seconds (9.4-12.1)
[2017-09-27] MEDS ORDERED: Lactobacillus 1 EACH CAP.SPRINK PO SCH (09:00)
[2017-09-27] MEDS ORDERED: Folic Acid 1 MG TABLET PO SCH (09:00)
[2017-09-27] MEDS ORDERED: cefTRIAXone 2,000 MG in Water for inj. (sterile) 20 ML 20 ML IVP SCH (09:00)
[2017-09-27] MEDS ORDERED: Multivit/Ca/Min/Fe/FA 1 TAB TABLET PO SCH (09:00)
[2017-09-27] MEDS ORDERED: Nicotine 21 MG PATCH.TD24 TD SCH (09:00)
[2017-09-27] MEDS ORDERED: Thiamine (B-1) 100 MG TABLET PO SCH (09:00)
[2017-09-27 10:19] LABS: ANA IgG by ELISA NONE DETECTED (None Detected)
--- NOTE | 2017-09-27 12:26 | Gastroenterology Progress Note ---
<Benja Kothari - Last Filed: 09/27/17 12:24> Date of Encounter: 09/27/17 Time of Encounter: 10:50 - Assessment and plan (1) Cirrhosis Current Visit: Yes Status: Chronic Assessment and plan: On admission, MELD-Na 22, Child-Pitt class C, DF 67.5. Yesterda, MELD-Na 21, Child-Pitt class C, DF 72.7. Use Lactulose PRN for 2-4 BMs daily. Plan for EGD once INR <1.5, today INR 2.2. EGD can be completed as outpatient as it is a screening. Lifestyle Changes: 1. Total abstinence from alcohol including social drinking. 2. No smoking 3. Gradual loss of weight 4. Drink at least 3 cups of coffee due to its antioxidant effects in the liver, it reduces risk of HCC and advance fibrosis 5. If needed, use less than 2 g/day of Tylenol (in divided doses). 6. Vaccination for Hep A, B, Pneumococcus if not already received and yearly influenza vaccination by PCP 7. Avoid NSAIDS as can cause kidney damage 8. Avoid benzodiazepines and other sedatives such as anti-histamines, narcotics etc. as can cause encephalopathy or confusion 9. Take a late carbohydrate meal supplement as it reduces glucose production from protein breakdown and thus improves nutrition. 10. In cirrhosis, statins are safe to use and also improve portal hypertension and decrease risk of HCC. 11. Screening: Hepatocellular cancer screening: US of liver, and AFP every 6 months Qualifiers: Hepatic cirrhosis type: alcoholic cirrhosis Ascites presence: with ascites Qualified Code(s): K70.31 - Alcoholic cirrhosis of liver with ascites (2) Alcoholism Current Visit: Yes Status: Acute - Time Spent With Patient Total time spent is greater than 50% in coordination of care (as documented) at patient's floor/unit and/or counseling patient: - Subjective Interval history: Patient reports feeling better. Patient resting in bed. She continue to complain of abdominal pain. - Constitutional Vitals: Temp Pulse Resp BP Pulse Ox 98.1 F 83 16 97/62 95 09/27/17 11:52 09/27/17 11:52 09/27/17 11:52 09/27/17 11:52 09/27/17 11:52 General appearance: Present: cooperative, A&O X 3, no acute distress, answers questions appropriately - Head Head exam: Present: atraumatic, normocephalic - Eye Eye exam: Present: normal appearance, sclera anicteric - ENT ENT exam: Present: mucous membranes moist - Neck Neck exam general surgery: Present: normal inspection, trachea midline - Respiratory Respiratory exam: Present: decreased breath sounds, CTAB. Absent: rales, rhonchi - Cardiovascular Cardiovascular exam: Present: RRR, +S1, +S2 - GI/Abdominal GI/Abdominal exam: Present: distended, firm, soft, tenderness (mild), no peritoneal signs. Absent: guarding - Expanded GI/Abdominal Exam GI/Abdominal exam expanded: Present: ascites - Rectal Rectal exam: Present: deferred - Extremities Exam Extremities exam: Present: warm - Neurological Exam Neurological exam: Present: no focal deficits - Psychiatric Psychiatric exam: Present: normal affect, normal mood - Skin Skin exam: Present: dry, intact, normal color, warm Results - Labs CBC & Chem 7: 09/26/17 05:13 09/26/17 05:13 Labs: Last Result Calcium 7.8 mg/dL (8.6-10.3) L 09/26/17 05:13 Iron 142 mcg/dL (50-170) 09/25/17 01:39 % Saturation 82 % (15-50) H 09/25/17 01:39 Transferrin 124 mg/dL (203-362) L 09/25/17 01:39 Ferritin 209 ng/mL (10-120) H 09/25/17 01:39 Troponin I < 0.03 ng/mL (< 0.04) 09/24/17 17:00 Vitamin B12 883 pg/mL (250-1100) 09/25/17 01:39 Folate 2.7 ng/mL (3.0-16.0) L 09/25/17 01:39 Stool Occult Blood Negative (Negative) 09/24/17 18:11 Urine Opiates Screen Negative ng/mL (Mifytg=974) 09/24/17 19:00 Entire Visit Hgb 9.6 g/dL (11.5-15.4) L 09/26/17 05:13 Hct 29.7 % (35.3-44.9) L 09/26/17 05:13 PT 24.4 Seconds (9.4-12.1) H 06/20/18 08:37 Ferritin 209 ng/mL (10-120) H 09/25/17 01:39 Total Bilirubin 2.3 mg/dL (0.3-1.0) H 09/26/17 05:13 AST 43 Units/L (13-39) H 09/26/17 05:13 ALT 6 Units/L (7-52) L 09/26/17 05:13 Hkikq-6-Cmwipglrhng 222 mg/dL (90-200) H 09/25/17 12:12 Ceruloplasmin 26 mg/dL (17-54) 09/25/17 12:12 Folate 2.7 ng/mL (3.0-16.0) L 09/25/17 01:39 - ABG ABG results: PT/INR, D-dimer PT 24.4 Seconds (9.4-12.1) H 09/27/17 08:37 - VTE Documentation of Mechanical Device: Intermittent pneumatic compression device Consult Discharge Plan - Plan Referrals: NONE,PCP [Primary Care Provider] - Sreekanth Jones, PAC [Physician Molding Engineer] - (Please call for follow up within 1 week upon discharge.) Prescriptions: Cefdinir [Omnicef] 300 mg PO BID #10 capsule Folic Acid 1 mg PO DAILY #30 tablet Furosemide [Lasix] 20 mg PO DAILY #30 tablet LORazepam [Ativan] 1 mg PO Q8H PRN 3 Days #10 tablet PRN Reason: Alcohol Withdrawal Multivit/Ca/Min/Fe/FA [Thera M Plus] 1 tab PO DAILY #30 tablet Thiamine (B-1) [Vitamin B-1] 100 mg PO DAILY #30 tablet <Delores Raymundo - Last Filed: 09/27/17 17:51> Date of Encounter: 09/27/17 Time of Encounter: 17:45 - Time Spent With Patient Total time spent is greater than 50% in coordination of care (as documented) at patient's floor/unit and/or counseling patient: - Constitutional Vitals: Temp Pulse Resp BP Pulse Ox 98.2 F 81 16 106/66 99 09/27/17 16:48 09/27/17 16:48 09/27/17 16:48 09/27/17 16:48 09/27/17 16:48 Results - Labs CBC & Chem 7: 09/26/17 05:13 09/26/17 05:13 Labs: Last Result Calcium 7.8 mg/dL (8.6-10.3) L 09/26/17 05:13 Iron 142 mcg/dL (50-170) 09/25/17 01:39 % Saturation 82 % (15-50) H 09/25/17 01:39 Transferrin 124 mg/dL (203-362) L 09/25/17 01:39 Ferritin 209 ng/mL (10-120) H 09/25/17 01:39 Troponin I < 0.03 ng/mL (< 0.04) 09/24/17 17:00 Vitamin B12 883 pg/mL (250-1100) 09/25/17 01:39 Folate 2.7 ng/mL (3.0-16.0) L 09/25/17 01:39 Stool Occult Blood Negative (Negative) 09/24/17 18:11 Urine Opiates Screen Negative ng/mL (Jalzxq=757) 09/24/17 19:00 Entire Visit Hgb 9.6 g/dL (11.5-15.4) L 09/26/17 05:13 Hct 29.7 % (35.3-44.9) L 09/26/17 05:13 PT 24.4 Seconds (9.4-12.1) H 09/27/17 08:37 Ferritin 209 ng/mL (10-120) H 09/25/17 01:39 Total Bilirubin 2.3 mg/dL (0.3-1.0) H 09/26/17 05:13 AST 43 Units/L (13-39) H 09/26/17 05:13 ALT 6 Units/L (7-52) L 09/26/17 05:13 Agkcm-4-Tvnnkcozyws 222 mg/dL (90-200) H 09/25/17 12:12 Ceruloplasmin 26 mg/dL (17-54) 09/25/17 12:12 Folate 2.7 ng/mL (3.0-16.0) L 09/25/17 01:39 F-Actin IgG Antibody 18 Units (0-19) 09/25/17 12:12 - ABG ABG results: PT/INR, D-dimer PT 24.4 Seconds (9.4-12.1) H 09/27/17 08:37 - Attending Attestation I have personally performed a face to face evaluation on this patient. I have reviewed and agree with the care plan. History and Exam by me shows: Patient with cirrhosis due to alcoholic liver disease her LFTs including bilirubin is improving. Will discharge home on oral diuretic and she will follow up with us as an outpatient no EGD at this point.
[2017-09-27 15:24] LABS: F-Actin (sm muscle) Ab IgG 18 Units (0-19); Myeloperoxidase Ab 0 AU/mL (0-19); Serine Protease-3 Antibody 0 AU/mL (0-19)
[2017-09-27 16:57] VITALS: BP 106/66
--- NOTE | 2017-09-27 17:14 | Discharge Summary ---
- NOTES TO OUTPATIENT PROVIDER Notes to Outpatient Provider: Follow-up with PCP within 2-3 days-follow final blood culture report and also get established with senior marketing analyst Dr. Kothari in 1 week for possible EGD and paracentesis. Monitor INR. Lasix as needed if gain weight more than 3 pounds in 1 week or PCP advice Orders not resulted at time of discharge: Pending orders 09/25/17 10:19 Occult Blood,Stool [BF] Routine 09/25/17 12:00 Cell Cnt w Dif, Peritoneal Fl [BF] Routine 09/25/17 12:08 Albumin,Peritoneal Fluid [BF] Routine Total Protein,Peritoneal Fluid [BF] Routine Date of Encounter: 09/27/17 Time of Encounter: 17:10 - Discharge Diagnosis (1) Decompensated hepatic cirrhosis Priority: Primary Status: Acute Assessment and Plan: likely 2/2 alcoholism. Never got evaluated by GI specialist in the past therefore GI specialist consulted and had extensive workup. As her INR was high therefore no paracentesis and EGD was planned but okay with GI specialist to discharge patient home and schedule the procedure on OPD basis. Patient presented with volume overload and got overdiuresis therefore had episode of low blood pressure therefore transferred to ICU for possible management of shock hypovolemic versus septic as initial lactic acid was also high. Echocardiogram done with preserved LV function EF around 60% . As patient has tendency to build up fluid therefore will discharge patient on low-dose Lasix as needed if weight gain more than 3 pounds in a week or as per PCP advice. . (2) Anemia Priority: Secondary Status: Acute Assessment and Plan: Chronic anemia. Improving hemoglobin without any blood transfusion but after appropriate diuresis for possible dilutional anemia due to volume overload. No active bleeding. Anemia workup on OPD basis by per primary care physician . Qualifiers: Anemia type: other cause Qualified Code(s): D53.8 - Other specified nutritional anemias Code(s): D64.9 - Anemia, unspecified SNOMED Code(s): 046592523 (3) Hypokalemia Priority: Secondary Status: Acute Assessment and Plan: Resolved. (4) UTI (urinary tract infection) Priority: Secondary Status: Acute Assessment and Plan: Urine culture with no growth. Qualifiers: Urinary tract infection type: site unspecified Hematuria presence: without hematuria Qualified Code(s): N39.0 - Urinary tract infection, site not specified (5) Lactic acidosis Priority: Primary Status: Acute Assessment and Plan: Concern for Possible sepsis as white count going up and with high lactic acid. Therefore IV antibiotic started. Blood culture with no gross yet but final culture is still pending. Will discharge patient on Omnicef for 5 days while following blood culture and there was initial concern of sepsis with no identified source yet. (6) Alcoholism Priority: Primary Status: Acute Assessment and Plan: Initially patient was in withdrawal recovered well and change to oral benzodiazepine. (7) Perianal abscess Priority: Secondary Status: Acute Assessment and Plan: Based on CT report but does not correlated with clinical symptom. Consulted general surgeon who did not advise any further intervention. Hospital course: Ms. Boone is a 47 year old female patient with history of cirrhosis, polysubstance abuse including alcohol abuse, history of perianal abscess status post surgical intervention last year got admitted for volume overload, alcohol withdrawal. Please see assessment for details Discharge discussed with: patient, family, nurse - Time Spent with Patient Total time spent providing and/or coordinating discharge services: - Discharge Medications Home Medications: Albuterol Sulfate [Albuterol Inhaler] 1 puff IH Q4HR PRN 09/24/17 [History] Allergies/Adverse Reactions: 3 Allergy/AdvReac Type Severity Reaction Status Date / Time No Known Allergies Allergy Verified 09/24/17 16:35 Date of admission: 09/24/17 18:42 Primary care physician: PCP NONE Consults: 09/24/17 18:52 Consult to Marine Design Engineer [CONS] Routine Reason for SW Consult: alcoholism 09/25/17 10:07 Consult to Gastroenterology [CONS] Routine Consulting Provider: Gastroenterology Selene Reason for Consult: Decompensated liver cirrhosis Call Completed: Yes - Constitutional Vitals: Temp Pulse Resp BP Pulse Ox 98.2 F 81 16 106/66 99 09/27/17 16:48 09/27/17 16:48 09/27/17 16:48 09/27/17 16:48 09/27/17 16:48 Exam: General appearance: No acute distress, A&O X 3 Head exam: Atraumatic Eye exam: EOMI, PERRLA ENT exam: Moist oral mucosa Neck nontender, supple Respiratory exam: Clear to auscultation bilaterally Cardiovascular exam: Regular rate and rhythm, no systolic murmur Abdominal exam: Soft, nontender, ascites, positive bowel sounds Extremities exam: No calf tenderness, trace pedal edema Present: Skin-, warm, dry, intact Neurological exam: Alert, awake, oriented 3, CN II-XII intact, no focal deficits. No facial droop. Normal speech. Normal gait. Romberg sign negative - Patient Status Disposition: Home, Self-Care Condition: Fair Overall status at discharge: patient is back to baseline - Discharge Instructions Follow Up With: NONE,PCP [Primary Care Provider] - - Diet and Activity Activity: increase activity as tolerated Diet: low fat, low cholesterol, low salt diet - VTE Documentation of Mechanical Device: Intermittent pneumatic compression device
== END 2017-09-27 18:05 | disposition home or self-care (01) | DRG 280 ==
LOC: EMEROO 16:13 → 2NENU 18:42 → SUATTDRO 18:42 → 2NENU 19:20 → ICNU 09-25 16:57
PROVIDERS: ADMIT Internal Medicine Hematology & Oncology; ATTEND General Practice

== ENCOUNTER 2017-10-15 18:29 | Inpatient (IN) ==
--- NOTE | 2017-10-15 19:09 | Emergency Department Note ---
Disposition Clinical Impression: Abdominal pain Qualifiers: Abdominal location: left upper quadrant Qualified Code(s): R10.12 - Left upper quadrant pain Ascites Qualifiers: Ascites type: due to alcoholic cirrhosis Qualified Code(s): K70.31 - Alcoholic cirrhosis of liver with ascites Alcoholic cirrhosis Qualifiers: Ascites presence: with ascites Qualified Code(s): K70.31 - Alcoholic cirrhosis of liver with ascites Disposition: Admitted As Inpatient Condition: Fair Referrals: NONE,PCP [Non-Partnered Physician] - Forms: ED Satisfaction Letter, Work/School Release Time of Disposition: 22:17 Abdominal Pain HPI - General Chief Complaint: ED Abdominal Pain Stated Complaint: abd edema, lethargy Time Seen by Provider: 10/15/17 19:09 Source: patient Mode of arrival: ambulatory Limitations: no limitations Nursing Notes Reviewed: Yes Vital Signs Reviewed: Yes - History of Present Illness HPI Narrative: Patient is a 47-year-old female with past medical history of alcoholic cirrhosis , ascites. She presents today due to diffuse abdominal discomfort. She states that she has been admitted in the past and was planned for paracentesis but cannot have it performed due to " blood levels being off." She states that she is scheduled to follow-up with GI in early November. She has never had a paracentesis performed before that she is here requesting this to be performed due to abdominal distention and discomfort. Denies any other fevers, nausea, vomiting, diarrhea, dysuria, hematuria. Denies any history of hepatitis. Not on any blood thinners. Pain Scale: 10 - Related Data Home Medications Medication Instructions Recorded Confirmed Albuterol Sulfate [Albuterol 1 puff IH Q4HR PRN 09/24/17 09/25/17 Inhaler] Previous Rx's Medication Instructions Recorded Cefdinir [Omnicef] 300 mg PO BID #10 capsule 09/27/17 Folic Acid 1 mg PO DAILY #30 tablet 09/27/17 Furosemide [Lasix] 20 mg PO DAILY #30 tablet 09/27/17 LORazepam [Ativan] 1 mg PO Q8H PRN 3 Days #10 tablet 09/27/17 Multivit/Ca/Min/Fe/FA [Thera M 1 tab PO DAILY #30 tablet 09/27/17 Plus] Thiamine (B-1) [Vitamin B-1] 100 mg PO DAILY #30 tablet 09/27/17 Allergies Allergy/AdvReac Type Severity Reaction Status Date / Time No Known Allergies Allergy Verified 09/24/17 16:35 All systems ED: reviewed and negative except as stated. Constitutional: Denies: fever Cardiovascular: Denies: chest pain Respiratory: Denies: cough, dyspnea, wheezes Gastrointestinal: Reports: abdominal pain, other (Distention). 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, methamphetamine, prescription drug abuse Physical Exam - General Limitations: no limitations General appearance: alert, in no apparent distress - Head Head exam: atraumatic, normocephalic, normal inspection - Eye Eye exam: Present: PERRL, EOMI, other (Mild scleral icterus) - ENT ENT exam: normal exam, normal oropharynx, mucous membranes moist - Neck Neck exam: Present: normal inspection, full ROM, trachea midline - Chest Chest inspection: Present: normal inspection, symmetric chest wall rise - Respiratory Respiratory exam: Present: normal lung sounds bilaterally - Cardiovascular Cardiovascular exam: Present: regular rate, normal rhythm, normal heart sounds - Abdominal Exam Abdominal exam: Present: soft, tenderness (Mild to moderate generalized tenderness), distention, guarding (Voluntary). Absent: rebound, rigidity - Extremities Exam Extremities exam: Present: full ROM, pedal edema (Mild bilateral lower extremity ). Absent: tenderness - Neurological Exam Neurological exam: Present: alert, oriented X3 - Psychiatric Psychiatric exam: Present: normal affect, normal mood - Skin Skin exam: Present: warm, dry, intact, normal color Course Course Narrative: Patient afebrile. Blood pressure systolic of 100s on my evaluation. Mentating well. Abdomen is distended and has a mild voluntary guarding throughout but no peritoneal signs, otherwise soft. Patient has elevated white blood cell count of 16.1. Patient also has elevated AST, bilirubin levels, alkaline phosphatase. Negative Barrow's sign. Bedside paracentesis was performed with 18-gauge spinal needle under ultrasound guidance but no fluid was able to be obtained. Since patient has elevated white blood cell count, ascites, generalized tenderness, I discussed admission for pain control, starting antibiotics for any presumed spontaneous bacterial peritonitis, and recommend interventional radiology paracentesis in the morning. Patient was agreeable with this plan. We will start the patient on Fink mycin and Rocephin. Patient has been treated with fentanyl for pain control. Vital Signs Temperature 98.1 F 10/15/17 18:31 Pulse Rate 83 10/15/17 18:31 Respiratory Rate 18 10/15/17 18:31 Blood Pressure 94/59 10/15/17 18:31 O2 Sat by Pulse Oximetry 91 10/15/17 18:31 Temperature 98.1 F 10/15/17 19:07 Pulse Rate 77 10/15/17 21:10 Respiratory Rate 15 10/15/17 19:21 Blood Pressure 97/64 10/15/17 21:10 O2 Sat by Pulse Oximetry 97 10/15/17 21:10 Oxygen Delivery Oxygen Delivery Room Air Procedures - Paracentesis Consent Obtained: verbal consent Time Out Performed: Yes Local Anesthetic: lidocaine 1% Amount of anesthesia used (mL): 2 Post Procedure Exam: awake, alert Patient Tolerated Procedure: well Complications: other (No aspirate of fluid obtained) Abdominal Pain - MDM Narrative Medical decision making narrative: Patient afebrile. Blood pressure systolic of 100s on my evaluation. Mentating well. Abdomen is distended and has a mild voluntary guarding throughout but no peritoneal signs, otherwise soft. Patient has elevated white blood cell count of 16.1. Patient also has elevated AST, bilirubin levels, alkaline phosphatase. Negative Barrow's sign. Bedside paracentesis was performed with 18-gauge spinal needle under ultrasound guidance but no fluid was able to be obtained. Since patient has elevated white blood cell count, ascites, generalized tenderness, I discussed admission for pain control, starting antibiotics for any presumed spontaneous bacterial peritonitis, and recommend interventional radiology paracentesis in the morning. Patient was agreeable with this plan. We will start the patient on Fink mycin and Rocephin. Patient has been treated with fentanyl for pain control. - Medical Records Medical records reviewed: Yes I reviewed the patient's medical records. - Lab Data Lab results reviewed: Yes I reviewed the patient's lab results. Result diagrams: 10/15/17 19:56 10/15/17 19:24 Lab Results 10/15/17 10/15/17 10/15/17 Range/Units 19:24 19:40 19:56 WBC 16.1 H (4.3-11.1) K/mcL RBC 2.96 L (3.82-4.97) M/mcL Hgb 10.8 L (11.5-15.4) g/dL Hct 33.2 L (35.3-44.9) % MCV 112.2 H D (83.0-100.0) fL MCH 36.5 H (28.0-33.3) pg MCHC 32.5 (31.6-35.5) g/dL RDW 18.0 H (11.5-14.5) % Plt Count 143 (140-400) K/mcL MPV 10.5 (9.4-12.4) fL Immature Gran % 0.6 (0-4) % Seg Neutrophils % 82.9 % Lymphocytes % 9.0 % Monocytes % 6.5 % Eosinophils % 0.8 % Basophils % 0.2 % Neutrophils # 13.4 H (1.6-8.9) K/mcL Lymphocytes # 1.5 (0.6-4.6) K/mcL Monocytes # 1.1 (0.0-1.3) K/mcL Eosinophils # 0.1 (0.0-0.6) K/mcL Basophils # 0.0 (0.0-0.2) K/mcL Poikilocytosis 1+ A (Not Present) Anisocytosis 1+ A (Not Present) Macrocytosis Present A (Not Present) Target Cells 1+ A (Not Present) Sodium 137 (136-145) mEq/L Potassium 3.8 (3.5-5.1) mEq/L Chloride 95 L (98-107) mEq/L Carbon Dioxide 34 H (23-29) mEq/L BUN 4 L (6-20) mg/dL Creatinine 0.52 L (0.60-1.20) mg/dL Est GFR ( Amer) > 60 (> 60) Est GFR (Non-Af Amer) > 60 (> 60) BUN/Creatinine Ratio 8 (6-26) Glucose 94 (70-105) mg/dL Calculated Osmolality 281 (280-300) Calcium 8.5 L (8.6-10.3) mg/dL Total Bilirubin 5.6 H (0.3-1.0) mg/dL Direct Bilirubin 2.4 H (0.0-0.2) mg/dL Indirect Bilirubin 3.2 H (0.0-1.2) mg/dL AST 88 H (13-39) Units/L ALT 13 (7-52) Units/L Alkaline Phosphatase 219 H (34-104) Units/L Serum Total Protein 7.4 (6.4-8.9) g/dL Albumin 3.1 L (3.5-5.7) g/dL Globulin 4.3 H (2.4-3.5) g/dL Albumin/Globulin Ratio 0.7 L (1.1-2.2) Amylase 10 L (29-103) Units/L Lipase 20 (11-82) Units/L Specimen Rejected MCV Delta - Radiology Data Radiology results reviewed: Yes I reviewed the patient's radiology results. Warren - Warren Situation: Demographics, MOA Background: Presenting Complaint, Relevant PMH, Meds, & Allergies Assessment: Vital Signs, Course and respsone to treatment, Exam Concerns, Patient/Family Expectation, Pertinant Lab Results, Outstanding Labs Recommendation: Barrier(s) to disposition, Recommendation based on pending studies, treatments, or consults Warren Report Given to: Dr. Daniela Kelley Repor Time: 22:17
[2017-10-15] MEDS ORDERED: *HR* FentaNYL (PF) 100 MCG/2 ML VIAL IVP ONE (19:11)
--- NOTE | 2017-10-15 20:03 | Emergency Department Note ---
Disposition Clinical Impression: Abdominal pain Qualifiers: Abdominal location: left upper quadrant Qualified Code(s): R10.12 - Left upper quadrant pain Disposition: Still a Patient Referrals: NONE,PCP [Primary Care Provider] - Forms: ED Satisfaction Letter, Work/School Release General Adult HPI - General Chief complaint: ED Abdominal Pain Stated complaint: abd edema, lethargy Time Seen by Provider: 10/15/17 19:09 Source: patient Mode of arrival: ambulatory Limitations: no limitations - History of Present Illness Pain Scale: 10 - Related Data Home Medications Medication Instructions Recorded Confirmed Albuterol Sulfate [Albuterol 1 puff IH Q4HR PRN 09/24/17 09/25/17 Inhaler] Previous Rx's Medication Instructions Recorded Cefdinir [Omnicef] 300 mg PO BID #10 capsule 09/27/17 Folic Acid 1 mg PO DAILY #30 tablet 09/27/17 Furosemide [Lasix] 20 mg PO DAILY #30 tablet 09/27/17 LORazepam [Ativan] 1 mg PO Q8H PRN 3 Days #10 tablet 09/27/17 Multivit/Ca/Min/Fe/FA [Thera M 1 tab PO DAILY #30 tablet 09/27/17 Plus] Thiamine (B-1) [Vitamin B-1] 100 mg PO DAILY #30 tablet 09/27/17 Allergies Allergy/AdvReac Type Severity Reaction Status Date / Time No Known Allergies Allergy Verified 09/24/17 16:35 Past Medical History - Past Medical History Medical history: Reports: no medical history, fibromyalgia, other Surgical history: Reports: no surgical history Psychiatric history: Reports: no psych history, other (ETOH abuse and illicit drug use) - Social History Smoking Status: Current every day smoker Smokeless Tobacco Status: No Alcohol use: Reports: heavy Drug use: Reports: marijuana, methamphetamine, prescription drug abuse Physical Exam - General Limitations: no limitations General appearance: alert Course - Reevaluation(s) Reevaluation #1: Attestation note I examined this patient and my medical decision-making was reviewed with the emergency medicine resident. I agree with the documented findings, disposition and treatment plan as described except to the extent set forth below. Patient seen with emergency medicine resident Dr. Elmer Nash, Please see a copy of his note for details of the H&P, ED evaluation, management and disposition. I have independently evaluated the patient and confirmed appropriate portions of the history and physical exam. Briefly: 47-year-old female history of alcoholic cirrhosis presents with abdominal distention mild shortness of breath and pain. Patient was initially per chief complaints and lethargic she is awake and alert she is in mild distress she is distended does not have an appreciable fluid wave certainly with cirrhosis and ascites with abdominal pain spontaneous bacterial peritonitis is in the differential patient will get a at the very least a diagnostic paracentesis sent for analysis. She will get screening labs. Disposition pending. Time: 20:02 Vital Signs Temperature 98.1 F 10/15/17 18:31 Pulse Rate 83 10/15/17 18:31 Respiratory Rate 18 10/15/17 18:31 Blood Pressure 94/59 10/15/17 18:31 O2 Sat by Pulse Oximetry 91 10/15/17 18:31 Temperature 98.1 F 10/15/17 19:07 Pulse Rate 70 10/15/17 19:21 Respiratory Rate 15 10/15/17 19:21 Blood Pressure 98/64 10/15/17 19:21 O2 Sat by Pulse Oximetry 94 10/15/17 19:21 Oxygen Delivery Oxygen Delivery Room Air Medical Decision Making - Lab Data Lab Results 10/15/17 Range/Units 19:40 Specimen Rejected MCV Delta
[2017-10-15 20:05] LABS: Alanine Aminotransferase 13 Units/L (7-52); Albumin 3.1 g/dL (3.5-5.7); Albumin/Globulin Ratio 0.7 (1.1-2.2); Alkaline Phosphatase 219 Units/L (34-104); Amylase 10 Units/L (29-103); Aspartate Amino Transferase 88 Units/L (13-39); BUN/Creatinine Ratio 8 (6-26); Bilirubin,Direct 2.4 mg/dL (0.0-0.2); Bilirubin,Indirect 3.2 mg/dL (0.0-1.2); Bilirubin,Total 5.6 mg/dL (0.3-1.0); Blood Urea Nitrogen 4 mg/dL (6-20); Calcium 8.5 mg/dL (8.6-10.3); Carbon Dioxide 34 mEq/L (23-29); Chloride 95 mEq/L (98-107); Globulin 4.3 g/dL (2.4-3.5); Glucose 94 mg/dL (70-105); Lipase 20 Units/L (11-82); Osmolality,Calculated 281 (280-300); Potassium 3.8 mEq/L (3.5-5.1); Sodium 137 mEq/L (136-145); Total Protein 7.4 g/dL (6.4-8.9); eGFR For African Americans > 60 (> 60); eGFR For Non-African Americans > 60 (> 60)
[2017-10-15 20:05] LABS: Basophils % 0.2 %; Eosinophils # 0.1 K/mcL (0.0-0.6); Eosinophils % 0.8 %; Hematocrit 33.2 % (35.3-44.9); Hemoglobin 10.8 g/dL (11.5-15.4); Immature Granulocytes % 0.6 % (0-4); Lymphocytes # 1.5 K/mcL (0.6-4.6); Mean Corpuscular HGB Conc 32.5 g/dL (31.6-35.5); Mean Corpuscular Hemoglobin 36.5 pg (28.0-33.3); Mean Corpuscular Volume 112.2 fL (83.0-100.0); Mean Platelet Volume 10.5 fL (9.4-12.4); Monocytes # 1.1 K/mcL (0.0-1.3); Monocytes % 6.5 %; Neutrophils # 13.4 K/mcL (1.6-8.9); Platelet Count 143 K/mcL (140-400); Red Blood Count 2.96 M/mcL (3.82-4.97); Segmented Neutrophils % 82.9 %
[2017-10-15 20:36] LABS: Anisocytosis 1+ (Not Present); Macrocytosis Present (Not Present); Poikilocytosis 1+ (Not Present); Target Cells 1+ (Not Present)
[2017-10-15] MEDS ORDERED: cefTRIAXone 2,000 MG in Water for inj. (sterile) 20 ML 20 ML IVP ONE (21:26)
[2017-10-15] MEDS ORDERED: *HR* Morphine Immed Rel 30 MG TABLET PO ONE (21:26)
[2017-10-15] MEDS ORDERED: Naloxone 0.4 MG/ML INJ IVP PRN (23:14)
[2017-10-15] MEDS ORDERED: *HR* LORazepam 2 MG/ML VIAL IVP PRN ×3 (23:21)
--- NOTE | 2017-10-15 23:55 | Internal Med History&Physical ---
Date of Encounter: 10/15/17 Time of Encounter: 23:00 Internal Medicine - H&P: HPI Chief complaint: Abdominal pain and distention Admitted From: Home Plans for Post Hospital Care: Home History of present illness: Ms. Boone is a 47 year old female present to ER for abdominal pain and distention. Past medical history is significant for cirrhosis due to alcoholism. Patient has cirrhosis and ascites. Patient has increased abdominal distention and chronic abdominal pain for about 2-3 months. Patient has increased abdominal pain since today. The pain is located on the whole belly, sharp. Patient has nausea but no vomiting. Patient has chronic diarrhea 2-3 times a day. Patient denies fever. Patient has increased leg swelling. In the emergency room, patient was found leukocytosis, SPEP was suspected, antibiotic was initiated. Patient was admitted for further management, mainly diagnostic and therapeutic paracentesis. Past Med Surg Social Fam HX - Past Medical History Medical history: no medical history, fibromyalgia, other Additional medical history: cirrhosis. ETOH abuse. meth use. fatty liver. Restless Leg Syndrome Psychiatric history: no psych history, other (ETOH abuse and illicit drug use) - Past Surgical History Surgical History: no surgical history Additional surgical history: back. biopsy of breast-benign. abscess of colon removed - Social History Smoking Status: Current every day smoker Smokeless Tobacco Status: No Alcohol use: heavy Drug use: marijuana, methamphetamine, prescription drug abuse - Family History Mother History Unknown: Yes Internal Medicine - H&P: Meds Albuterol Sulfate [Albuterol Inhaler] 1 puff IH Q4HR PRN 09/24/17 [History] Folic Acid 1 mg PO DAILY #30 tablet 09/27/17 [Rx] Multivit/Ca/Min/Fe/FA [Thera M Plus] 1 tab PO DAILY #30 tablet 09/27/17 [Rx] Thiamine (B-1) [Vitamin B-1] 100 mg PO DAILY #30 tablet 09/27/17 [Rx] 3 Allergy/AdvReac Type Severity Reaction Status Date / Time No Known Allergies Allergy Verified 09/24/17 16:35 All Systems PM: A 10-system review of systems was performed and is negative for pertinent findings except as documented above in the HPI. - Constitutional Vitals: Temp Pulse Resp BP Pulse Ox 97.8 F 86 22 106/74 94 10/15/17 23:45 10/15/17 23:45 10/15/17 23:45 10/15/17 23:45 10/15/17 23:45 General appearance: Present: A&O X 3, no acute distress, answers questions appropriately - Head Head exam: Present: atraumatic, normocephalic - Eye Eye exam: Present: PERRL, conjuntiva pink, sclera anicteric Pupils: Present: PERRL - Neck Neck exam general surgery: Present: supple, trachea midline. Absent: lymphadenopathy - Respiratory Respiratory exam: Present: CTAB. Absent: accessory muscle use, rales, rhonchi, wheezes - Cardiovascular Cardiovascular exam: Present: RRR, +S1, +S2. Absent: diastolic murmur, gallop, rubs, systolic murmur - GI/Abdominal GI/Abdominal exam: Present: distended, normal bowel sounds, soft, tenderness ( Tenderness in 4Q without obvious rebound), no peritoneal signs - Extremities Exam Extremities exam: Present: pedal edema (Bilaterally), warm, radial pulses palpable and symmetrical. Absent: calf tenderness, cyanotic - Neurological Exam Neurological exam: Present: CN II-XII intact, oriented X3, no focal deficits. Absent: pronater drift, facial droop, speech deficit - Skin Skin exam: Present: dry, intact Internal Med - H&P Results - Labs CBC & Chem 7: 10/15/17 19:56 10/15/17 19:24 - Assessment and plan (1) Abdominal pain Current Visit: Yes Status: Acute Assessment and plan: Patient has abdominal distention and abdominal pain. History of cirrhosis with ascites. SBP is suspected. - Antibiotic initially started by ER. Will continue empirically treatment with cefotaxime. - IR consult for diagnostic and therapeutic paracentesis. Qualifiers: Abdominal location: generalized Qualified Code(s): R10.84 - Generalized abdominal pain (2) Alcoholic cirrhosis Current Visit: Yes Status: Acute Assessment and plan: Patient has history of cirrhosis. Patient has worsening liver function, especially elevated bilirubin level from baseline. Will check US liver to evaluate the level of cirrhosis. Qualifiers: Ascites presence: with ascites Qualified Code(s): K70.31 - Alcoholic cirrhosis of liver with ascites (3) Ascites Current Visit: Yes Status: Acute Assessment and plan: Management as above Qualifiers: Ascites type: due to alcoholic cirrhosis Qualified Code(s): K70.31 - Alcoholic cirrhosis of liver with ascites (4) Alcoholism Current Visit: No Status: Acute Assessment and plan: Place patient on CIWA protocol. (5) DVT prophylaxis Current Visit: No Status: Acute Assessment and plan: EPCDs - Time Spent With Patient Total time spent is greater than 50% in coordination of care (as documented) at patient's floor/unit and/or counseling patient: 40min Greater than 35 minutes
[2017-10-16] MEDS: Nicotine 21 MG PATCH.TD24 TD SCH ×2 (01:30→07:51)
[2017-10-16] MEDS: OXYCODONE Oral CONC 10 MG/0.5 ML ORAL.SYG SL PRN ×4 (01:30→21:17)
[2017-10-16 06:17] LABS: Basophils # 0.1 K/mcL (0.0-0.2); Basophils % 0.3 %; Eosinophils # 0.2 K/mcL (0.0-0.6); Eosinophils % 1.1 %; Hematocrit 33.2 % (35.3-44.9); Hemoglobin 10.5 g/dL (11.5-15.4); Immature Granulocytes % 0.4 % (0-4); Lymphocytes % 11.8 %; Mean Corpuscular HGB Conc 31.6 g/dL (31.6-35.5); Mean Corpuscular Hemoglobin 35.4 pg (28.0-33.3); Mean Corpuscular Volume 111.8 fL (83.0-100.0); Mean Platelet Volume 11.1 fL (9.4-12.4); Monocytes % 6.2 %; Neutrophils # 13.4 K/mcL (1.6-8.9); Platelet Count 148 K/mcL (140-400); Red Blood Count 2.97 M/mcL (3.82-4.97); Segmented Neutrophils % 80.2 %
[2017-10-16 06:24] LABS: INR 2.7; Prothrombin Time 30.7 Seconds (9.4-12.1)
[2017-10-16 06:37] LABS: Anisocytosis 1+ (Not Present); Macrocytosis Present (Not Present); Platelet Estimate Normal (Normal); Poikilocytosis 1+ (Not Present); Polychromasia 1+ (Not Present); Target Cells 1+ (Not Present)
[2017-10-16 06:43] LABS: Alanine Aminotransferase 8 Units/L (7-52); Albumin 2.6 g/dL (3.5-5.7); Albumin/Globulin Ratio 0.7 (1.1-2.2); Alkaline Phosphatase 189 Units/L (34-104); Aspartate Amino Transferase 54 Units/L (13-39); BUN/Creatinine Ratio 11 (6-26); Bilirubin,Total 4.4 mg/dL (0.3-1.0); Blood Urea Nitrogen 5 mg/dL (6-20); Calcium 7.9 mg/dL (8.6-10.3); Carbon Dioxide 31 mEq/L (23-29); Chloride 100 mEq/L (98-107); Globulin 3.8 g/dL (2.4-3.5); Glucose 110 mg/dL (70-105); Lactate Dehydrogenase 125 Units/L (140-271); Magnesium 1.6 mg/dL (1.6-2.6); Osmolality,Calculated 284 (280-300); Phosphorous 2.9 mg/dL (2.7-4.5); Potassium 2.9 mEq/L (3.5-5.1); Sodium 138 mEq/L (136-145); Total Protein 6.4 g/dL (6.4-8.9); eGFR For African Americans > 60 (> 60); eGFR For Non-African Americans > 60 (> 60)
[2017-10-16] MEDS: Multivit/Ca/Min/Fe/FA 1 TAB TABLET PO SCH (13:25)
[2017-10-16] MEDS: Folic Acid 1 MG TABLET PO SCH (13:25)
[2017-10-16] MEDS: Thiamine (B-1) 100 MG TABLET PO SCH (13:25)
--- NOTE | 2017-10-16 14:56 | Internal Med Progress Note ---
Date of Encounter: 10/16/17 Time of Encounter: 14:53 - Assessment and plan (1) Abdominal pain Current Visit: Yes Status: Acute Assessment and plan: Patient has abdominal distention and abdominal pain. History of cirrhosis with ascites. SBP is suspected. - Antibiotic initially started by ER. Will continue empirically treatment with cefotaxime. - IR consult for diagnostic and therapeutic paracentesis. 10/16-continues to have abdominal distention and abdominal pain. She does have history of cirrhosis and SBP is suspected. I will continue antibiotics for now. I spoke with interventional radiology who suggests that there is not enough fluid to do a diagnostic left alone a therapeutic tap. I then discussed the case with gastroenterology and we will request a formal consultation for input. At this point her INR is also elevated which is a measure of significant synthetic dysfunction Clinically she looks to be in decompensated liver failure. I will continue Lasix for now and further plan of care to be determined with gastroenterology. She does not look encephalopathic at this point Continue pain control Qualifiers: Abdominal location: generalized Qualified Code(s): R10.84 - Generalized abdominal pain (2) Alcoholism Current Visit: No Status: Acute Assessment and plan: Place patient on CIWA protocol. Continue to monitor (3) DVT prophylaxis Current Visit: No Status: Acute Assessment and plan: EPCDs (4) Ascites Current Visit: Yes Status: Acute Assessment and plan: Management as above-no radiologically significant ascites found Qualifiers: Ascites type: due to alcoholic cirrhosis Qualified Code(s): K70.31 - Alcoholic cirrhosis of liver with ascites (5) Alcoholic cirrhosis Current Visit: Yes Status: Acute Assessment and plan: Acute on chronic worsening of end-stage liver disease. See plan of care above. Gastroenterology consulted and await recommendations. Qualifiers: Ascites presence: with ascites Qualified Code(s): K70.31 - Alcoholic cirrhosis of liver with ascites - Time Spent With Patient Total time spent is greater than 50% in coordination of care (as documented) at patient's floor/unit and/or counseling patient: 25 - 35 minutes - Subjective Interval history: Patient continues to complain of diffuse abdominal pain and distention. Denies any new fevers or chills at this point - Constitutional Vitals: Temp Pulse Resp BP Pulse Ox 98.1 F 70 16 99/63 97 10/16/17 11:05 10/16/17 11:05 10/16/17 11:05 10/16/17 11:05 10/16/17 11:05 General appearance: Present: A&O X 3, no acute distress, answers questions appropriately Exam: GENERAL: Alert, moderate distress, cooperative EYES: PERRLA, EOMI EARS: External ears normal, canals clear OROPHARYNX: Lips, mucosa, and tongue normal. Teeth and gums normal. Oropharynx normal. NECK: No jugulovenous distention, No carotid bruits, Carotid pulse normal contour, Supple LUNGS: Lungs clear to auscultation, Good diaphragmatic excursion CARDIAC: Normal S1 and S2; no rubs, murmurs, or gallops ABDOMEN: Abdomen is soft, distended with negative fluid thrill. Tender to palpation in the left upper and left lower quadrant as well as right lower quadrant. Rest of the exam is non contributory Internal Medicine: Result - Labs CBC & Chem 7: 10/16/17 05:52 10/16/17 05:52 Labs: Short CBC 10/16/17 Range/Units 05:52 WBC 16.7 H (4.3-11.1) K/mcL Hgb 10.5 L (11.5-15.4) g/dL Hct 33.2 L (35.3-44.9) % Plt Count 148 (140-400) K/mcL Neutrophils # 13.4 H (1.6-8.9) K/mcL BMP 10/16/17 05:52 Sodium 138 Potassium 2.9 L Chloride 100 Carbon Dioxide 31 H BUN 5 L Creatinine 0.44 L Glucose 110 H Calcium 7.9 L Liver Function 10/16/17 10/16/17 Range/Units 05:52 05:52 Total Bilirubin 4.4 H (0.3-1.0) mg/dL AST 54 H (13-39) Units/L ALT 8 (7-52) Units/L Alkaline Phosphatase 189 H (34-104) Units/L Albumin 2.7 L 2.6 L (3.5-5.7) g/dL - ABG Interpretation ABG results: PT/INR, D-dimer PT 30.7 Seconds (9.4-12.1) H 10/16/17 05:52 - Impressions Impressions Liver Ultrasound 10/16/17 09:30 IMPRESSION: 1. At least moderate hepatomegaly with severe steatosis. Coarsening of hepatic echotexture suggests some underlying fibrotic change, although no overt findings of cirrhosis are identified. 2. Minimal intrahepatic and extrahepatic biliary dilation with no findings suggestive of choledocholithiasis. Consider further evaluation with MRCP only if there are clinical findings of cholestasis. 3. Minimal gallbladder wall thickening adjacent to the gallbladder fossa, most likely related to adjacent liver disease. No findings of cholelithiasis nor secondary findings cholecystitis. Consider further evaluation with a nuclear medicine hepatobiliary scan only if there are clinical findings of acute cholecystitis. 4. Trace perihepatic ascites. 5. No visualization of the pancreas. D/ / Benja William MD / Benja William MD Interpreting Provider: Benja William MD Consult Discharge Plan - Plan Referrals: Ella Heredia CNP [Primary Care Provider] -
[2017-10-16] MEDS: Furosemide 20 MG TABLET PO SCH (16:28)
--- NOTE | 2017-10-16 16:38 | Gastroenterology Consult Note ---
Date of Encounter: 10/16/17 Time of Encounter: 16:38 - Assessment and plan (1) Liver failure Current Visit: Yes Status: Chronic Assessment and plan: - Suspected liver failure secondary to alcohol abuse - Right upper quadrant on 10/16/17 sound showing severe steatosis and hepatomegaly - No overt findings of cirrhosis but evidence of trace ascites - Patient is alert and oriented 3, no concern for hepatic encephalopathy at this time - Patient is afebrile however does have elevated white count 16.7. There is a concern for primary team about SBP - Patient reports symptoms of edema of lower extremities as well as abdomen. - Labs significant for hypokalemia of 2.9, bilirubin 5.6, albumin 2.6, elevated transaminases with AST greater than ALT with ratio of 88/13, alkaline phosphatase of 219 - Macrocytic anemia noted as well - Attempted paracentesis today shows no fluid for drainage Plan - Edema likely secondary to third spacing in the setting of hypoalbuminemia and decreased oncotic pressure. - Labs consistent with alcoholic liver failure with chronic malnutrition - We will add spironolactone 100 mg daily - Encourage nutrition and cessation of alcohol - Consider addition of albumin replacement - Continue cefotaxime for concern of SBP - Supportive care per primary team Qualifiers: Liver failure chronicity: acute Hepatic coma status: without hepatic coma Qualified Code(s): K72.00 - Acute and subacute hepatic failure without coma (2) Alcoholism Current Visit: Yes Status: Chronic Assessment and plan: - Patient was counseled on the importance of alcohol cessation. She states that she has been trying to cut back and has succeeded in cutting back to 1/2 gallon of whiskey per week over the last month. She is aware that this is likely the root cause of her liver failure and states she is trying to quit entirely. (3) Abdominal pain Current Visit: Yes Status: Acute Assessment and plan: - Likely secondary to edema and third spacing Patient reports improvement of symptoms throughout hospital stay Continue supportive care per primary team Qualifiers: Abdominal location: generalized Qualified Code(s): R10.84 - Generalized abdominal pain (4) Alcoholic cirrhosis Current Visit: Yes Status: Suspected Assessment and plan: Known history of alcohol abuse as above - Ultrasound liver showed hepatomegaly with severe steatosis, however no overt findings of cirrhosis and evidence of trace ascites - Lab results including bilirubin of 5.6 on admission, albumin 2.6, elevated transaminases (AST>ALT) - Liver ultrasound from 09/25/17 shows similar findings - Patient encouraged to quit abusing alcohol for presenting to full on cirrhosis - Meld score 24 estimating and 19.6% 3 month mortality Plan - Supportive care as above - Continue to encourage alcohol cessation Qualifiers: Ascites presence: with ascites Qualified Code(s): K70.31 - Alcoholic cirrhosis of liver with ascites - Time Spent With Patient Total time spent is greater than 50% in coordination of care (as documented) at patient's floor/unit and/or counseling patient: GI History of Present Illness - Data of Consult Consult date: 10/16/17 Requesting Physician: Janet Srivastava - Consult Narrative Reason for consult: Cirrhosis, possible SBP History of present illness: Ms. Boone is a 47 year old female with past medical history of cirrhosis secondary to alcohol abuse, fibromyalgia presented [facility] with complaint of abdominal enlargement with swelling as well as abdominal pain. Patient states that the pain is located diffusely across her abdomen and she is unable to describe its nature. Pain is worse when she sits up and relieved when she lies flat. She states that since being admitted her pain has improved with the medications that we are giving her. She was recently admitted to the intensive care unit approximately one month ago for decompensated hepatic cirrhosis. Patient states that she has decreased her alcohol consumption from 1/2 gallon of whiskey daily to one half gallon of whiskey per week. She decrease this amount approximately one month ago after being discharged from the ICU. She states she does have a desire to quit and knows that she has to. Gastroenterology was consulted for decompensation of cirrhosis, concern for SBP. Right upper quadrant also was obtained and shows hepatomegaly with severe steatosis and no overt findings of cirrhosis. There was also trace ascites noted. Therapeutic and diagnostic paracentesis was attempted however there was not enough pocket of fluid for paracentesis collection. Patient does deny any symptoms of fevers, chills, chest pain, she does admit to shortness of breath, intermittent nausea and vomiting. Past Med Surg Social Fam HX - Past Medical History Medical history: no medical history, fibromyalgia, other Additional medical history: cirrhosis. ETOH abuse. meth use. fatty liver. Restless Leg Syndrome Psychiatric history: no psych history, other (ETOH abuse and illicit drug use) - Past Surgical History Surgical History: no surgical history Additional surgical history: back. biopsy of breast-benign. abscess of colon removed - Social History Smoking Status: Current every day smoker Packs per day: 1 Smokeless Tobacco Status: No Alcohol use: heavy Drug use: marijuana, methamphetamine, prescription drug abuse - Family History Mother History Unknown: Yes Review of Systems: - Constitutional: Admits to weight gain. Denies fevers, chills, weight loss, generalized fatigue - EENT: Denies vision changes/blurriness, tinnitus, auditory changes, rhinorrhea , congestion, sore throat, odynaphagia, MMM - CVS: Admits edema. Denies chest pain, palpitations, GARCIA, orthopnea, PND - Pulm: admits to SOB. Denies cough, sputum, hematemesis, wheezing - GI: Admits to abdominal pain, nausea, vomiting, loose stools. Denies melena, hematochezia. - Skin: Denies rashes, ulcers, color changes, - Neuro: Denies SILVA, paresthesias, focal deficits, ataxia, numbness, tingling. - Constitutional Vitals: Temp Pulse Resp BP Pulse Ox 98.0 F 79 18 111/72 95 10/16/17 15:14 10/16/17 15:14 10/16/17 15:14 10/16/17 15:14 10/16/17 15:14 Exam: Gen.: Vitals noted. No acute distress. AAOx3. Resting comfortably in bed HEENT: PERRL/EOMI, oropharynx clear, Normocephalic, atraumatic, MMM Neck: Supple. No adenopathy. Cardiac: RRR, no murmur, +S1/S2 Pulmonary: CTA bilaterally, no wheezes, rales or rhonchi, equal chest expansion Abdomen: soft, moderately tender to light palpation, BS noted, no guarding. Distended however no fluid wave present Extremities: 2+BLE edema, nontender calf, no cyanosis or clubbing Neuro: A&Ox3, moves all extremities, no focal deficits Psych: Appropriate mood and behavior Results - Labs CBC & Chem 7: 10/16/17 05:52 10/16/17 05:52 Labs: Last Result Calcium 7.9 mg/dL (8.6-10.3) L 10/16/17 05:52 Entire Visit Hgb 10.5 g/dL (11.5-15.4) L 10/16/17 05:52 Hct 33.2 % (35.3-44.9) L 10/16/17 05:52 PT 30.7 Seconds (9.4-12.1) H 10/16/17 05:52 Total Bilirubin 4.4 mg/dL (0.3-1.0) H 10/16/17 05:52 AST 54 Units/L (13-39) H 10/16/17 05:52 ALT 8 Units/L (7-52) 10/16/17 05:52 Amylase 10 Units/L (29-103) L 10/15/17 19:24 Lipase 20 Units/L (11-82) 10/15/17 19:24 - ABG ABG results: PT/INR, D-dimer PT 30.7 Seconds (9.4-12.1) H 10/16/17 05:52 - Impressions Impressions Liver Ultrasound 10/16/17 09:30 IMPRESSION: 1. At least moderate hepatomegaly with severe steatosis. Coarsening of hepatic echotexture suggests some underlying fibrotic change, although no overt findings of cirrhosis are identified. 2. Minimal intrahepatic and extrahepatic biliary dilation with no findings suggestive of choledocholithiasis. Consider further evaluation with MRCP only if there are clinical findings of cholestasis. 3. Minimal gallbladder wall thickening adjacent to the gallbladder fossa, most likely related to adjacent liver disease. No findings of cholelithiasis nor secondary findings cholecystitis. Consider further evaluation with a nuclear medicine hepatobiliary scan only if there are clinical findings of acute cholecystitis. 4. Trace perihepatic ascites. 5. No visualization of the pancreas. D/ / Benja William MD / Benja William MD Interpreting Provider: Benja William MD Consult Discharge Plan - Plan Referrals: Ella Heredia, NOEMI [Primary Care Provider] -
[2017-10-16] MEDS ORDERED: Furosemide 20 MG TABLET PO SCH (17:00)
[2017-10-17] MEDS: OXYCODONE Oral CONC 10 MG/0.5 ML ORAL.SYG SL PRN (03:47)
[2017-10-17] MEDS: Nicotine 21 MG PATCH.TD24 TD SCH (07:37)
[2017-10-17] MEDS: Multivit/Ca/Min/Fe/FA 1 TAB TABLET PO SCH (07:37)
[2017-10-17] MEDS: Thiamine (B-1) 100 MG TABLET PO SCH (07:37)
[2017-10-17] MEDS: Folic Acid 1 MG TABLET PO SCH (07:37)
[2017-10-17] MEDS: Furosemide 20 MG TABLET PO SCH (07:37)
[2017-10-17] MEDS ORDERED: Albumin 25% 25gram/100mL 25 GM/100 ML IV.SOLN IVPB ONE (13:22)
--- NOTE | 2017-10-17 14:00 | Internal Med Progress Note ---
Date of Encounter: 10/17/17 Time of Encounter: 13:57 - Assessment and plan (1) Liver failure Current Visit: Yes Status: Chronic Assessment and plan: Acute decompensated liver failure. 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 Appreciate gastroenterology recommendations. At this point we will continue medical management with IV antibiotics for suspected SBP even though the amount of fluid seems to be in significant to tap. Continue to trend for cultures to tailor antibiotics accordingly. Repeat BMP today and in the morning. Spironolactone added. Blood pressure appears to be stable Qualifiers: Liver failure chronicity: acute Hepatic coma status: without hepatic coma Qualified Code(s): K72.00 - Acute and subacute hepatic failure without coma (2) Alcoholism Current Visit: Yes Status: Chronic Assessment and plan: Place patient on CIWA protocol. Continue to monitor No withdrwal as of now (3) Abdominal pain Current Visit: Yes Status: Acute Assessment and plan: Patient has abdominal distention and abdominal pain. History of cirrhosis with ascites. SBP is suspected. - Antibiotic initially started by ER. Will continue empirically treatment with cefotaxime. - IR consult for diagnostic and therapeutic paracentesis. 10/16-continues to have abdominal distention and abdominal pain. She does have history of cirrhosis and SBP is suspected. I will continue antibiotics for now. I spoke with interventional radiology who suggests that there is not enough fluid to do a diagnostic left alone a therapeutic tap. I then discussed the case with gastroenterology and we will request a formal consultation for input. At this point her INR is also elevated which is a measure of significant synthetic dysfunction Clinically she looks to be in decompensated liver failure. I will continue Lasix for now and further plan of care to be determined with gastroenterology. She does not look encephalopathic at this point Continue pain control 10/17-see plan above Qualifiers: Abdominal location: generalized Qualified Code(s): R10.84 - Generalized abdominal pain (4) Alcoholic cirrhosis Current Visit: Yes Status: Suspected Assessment and plan: Acute on chronic worsening of end-stage liver disease. See plan of care above. Gastroenterology consulted and appreciate recommendations. Qualifiers: Ascites presence: with ascites Qualified Code(s): K70.31 - Alcoholic cirrhosis of liver with ascites - Time Spent With Patient Total time spent is greater than 50% in coordination of care (as documented) at patient's floor/unit and/or counseling patient: 25 - 35 minutes - Subjective Interval history: Abdominal pain is significantly improved. She denies any new fevers or chills overnight. Feels lethargic and weak overall - Constitutional Vitals: Temp Pulse Resp BP Pulse Ox 97.6 F 79 16 94/49 90 10/17/17 12:12 10/17/17 12:12 10/17/17 12:12 10/17/17 12:12 10/17/17 12:12 General appearance: Present: A&O X 2, A&O X 3, no acute distress, answers questions appropriately Exam: GENERAL: Alert, moderate distress, cooperative EYES: Bilateral icterus present EARS: External ears normal, canals clear OROPHARYNX: Lips, mucosa, and tongue normal. Teeth and gums normal. Oropharynx normal. NECK: No jugulovenous distention, No carotid bruits, Carotid pulse normal contour, Supple LUNGS: Lungs clear to auscultation, Good diaphragmatic excursion CARDIAC: Normal S1 and S2; no rubs, murmurs, or gallops ABDOMEN: Abdomen is soft but distended with negative fluid thrill. Mild tenderness to palpation in the left upper and lower quadrants. Rest of the exam is non contributory Internal Medicine: Result - Labs CBC & Chem 7: 10/16/17 05:52 10/16/17 05:52 - ABG Interpretation ABG results: PT/INR, D-dimer PT 30.7 Seconds (9.4-12.1) H 10/16/17 05:52 Consult Discharge Plan - Plan Referrals: Ella Heredia CNP [Primary Care Provider] -
[2017-10-17 16:11] LABS: Alanine Aminotransferase 9 Units/L (7-52); Albumin 2.8 g/dL (3.5-5.7); Albumin/Globulin Ratio 0.9 (1.1-2.2); Alkaline Phosphatase 185 Units/L (34-104); Aspartate Amino Transferase 68 Units/L (13-39); BUN/Creatinine Ratio 11 (6-26); Bilirubin,Total 4.4 mg/dL (0.3-1.0); Blood Urea Nitrogen 6 mg/dL (6-20); Carbon Dioxide 35 mEq/L (23-29); Chloride 95 mEq/L (98-107); Globulin 3.2 g/dL (2.4-3.5); Glucose 112 mg/dL (70-105); Osmolality,Calculated 286 (280-300); Potassium 2.8 mEq/L (3.5-5.1); Sodium 139 mEq/L (136-145); eGFR For African Americans > 60 (> 60); eGFR For Non-African Americans > 60 (> 60)
[2017-10-17] MEDS ORDERED: Ketorolac 30 MG/ML VIAL IVP ONE (21:56)
[2017-10-18] MEDS ORDERED: Potassium Chloride Elixir 20 MEQ/15 ML UDC PO ONE (08:23)
[2017-10-18] MEDS: Nicotine 21 MG PATCH.TD24 TD SCH (08:23)
[2017-10-18] MEDS: Folic Acid 1 MG TABLET PO SCH (08:25)
[2017-10-18] MEDS: Furosemide 20 MG TABLET PO SCH (08:25)
[2017-10-18] MEDS: Multivit/Ca/Min/Fe/FA 1 TAB TABLET PO SCH (08:25)
[2017-10-18] MEDS: Thiamine (B-1) 100 MG TABLET PO SCH (08:25)
[2017-10-18 10:33] LABS: Alanine Aminotransferase 10 Units/L (7-52); Albumin 2.8 g/dL (3.5-5.7); Albumin/Globulin Ratio 0.8 (1.1-2.2); Alkaline Phosphatase 178 Units/L (34-104); Aspartate Amino Transferase 69 Units/L (13-39); BUN/Creatinine Ratio 11 (6-26); Bilirubin,Total 5.4 mg/dL (0.3-1.0); Blood Urea Nitrogen 6 mg/dL (6-20); Calcium 8.4 mg/dL (8.6-10.3); Carbon Dioxide 34 mEq/L (23-29); Chloride 97 mEq/L (98-107); Globulin 3.3 g/dL (2.4-3.5); Glucose 166 mg/dL (70-105); Osmolality,Calculated 285 (280-300); Potassium 3.1 mEq/L (3.5-5.1); Sodium 137 mEq/L (136-145); Total Protein 6.1 g/dL (6.4-8.9); eGFR For African Americans > 60 (> 60); eGFR For Non-African Americans > 60 (> 60)
[2017-10-18] MEDS: Simethicone 80 MG TAB.CHEW PO PRN ×2 (10:43→18:32)
[2017-10-18] MEDS: OXYCODONE Oral CONC 10 MG/0.5 ML ORAL.SYG SL PRN ×2 (10:50→20:17)
--- NOTE | 2017-10-18 18:10 | Internal Med Progress Note ---
<Bev Allen - Last Filed: 10/18/17 18:06> Date of Encounter: 10/18/17 Time of Encounter: 09:30 - Assessment and plan (1) Liver failure Current Visit: Yes Status: Chronic Assessment and plan: Acute decompensated liver failure. 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 -Gastroenterology consulted - On cefotaxine IV antibiotics for suspected SBP even though the amount of fluid seems to be in significant to tap. - Continue to trend for cultures to tailor antibiotics accordingly. - Repeat BMP today and in the morning. - Continue Spironolactone. - Added lactobacillis to keep bowel rudi healthy - Blood pressure appears to be stable Liver Ultrasound 10/16/17 09:30 IMPRESSION: 1. At least moderate hepatomegaly with severe steatosis. Coarsening of hepatic echotexture suggests some underlying fibrotic change, although no overt findings of cirrhosis are identified. 2. Minimal intrahepatic and extrahepatic biliary dilation with no findings suggestive of choledocholithiasis. Consider further evaluation with MRCP only if there are clinical findings of cholestasis. 3. Minimal gallbladder wall thickening adjacent to the gallbladder fossa, most likely related to adjacent liver disease. No findings of cholelithiasis nor secondary findings cholecystitis. Consider further evaluation with a nuclear medicine hepatobiliary scan only if there are clinical findings of acute cholecystitis. 4. Trace perihepatic ascites. 5. No visualization of the pancreas. Qualifiers: Liver failure chronicity: acute Hepatic coma status: without hepatic coma Qualified Code(s): K72.00 - Acute and subacute hepatic failure without coma (2) Alcoholism Current Visit: Yes Status: Chronic Assessment and plan: Place patient on CIWA protocol. -Drinks 1/2 gallow of whiskey a week with additional beers -Continue to monitor -No withdrawal as of now (3) Abdominal pain Current Visit: Yes Status: Acute Assessment and plan: Patient has abdominal distention and abdominal pain. History of cirrhosis with ascites. SBP is suspected. - Treating empirically with ceftaxime. - IR consult for diagnostic and therapeutic paracentesis 10/16-continues to have abdominal distention and abdominal pain. She does have history of cirrhosis and SBP is suspected. I will continue antibiotics for now. I spoke with interventional radiology who suggests that there is not enough fluid to do a diagnostic left alone a therapeutic tap. I then discussed the case with gastroenterology and we will request a formal consultation for input. At this point her INR is also elevated which is a measure of significant synthetic dysfunction Clinically she looks to be in decompensated liver failure. I will continue Lasix for now and further plan of care to be determined with gastroenterology. She does not look encephalopathic at this point Continue pain control 10/17-see plan above 10/18- same as above with addition to: added nutrition consulted, added nutrition supplement, added lactobacillis to keep colon rudi healthy Qualifiers: Abdominal location: generalized Qualified Code(s): R10.84 - Generalized abdominal pain (4) Alcoholic cirrhosis Current Visit: Yes Status: Suspected Assessment and plan: Acute on chronic worsening of end-stage liver disease. See plan of care above. - Gastroenterology consulted Liver Ultrasound 10/16/17 09:30 IMPRESSION: 1. At least moderate hepatomegaly with severe steatosis. Coarsening of hepatic echotexture suggests some underlying fibrotic change, although no overt findings of cirrhosis are identified. 2. Minimal intrahepatic and extrahepatic biliary dilation with no findings suggestive of choledocholithiasis. Consider further evaluation with MRCP only if there are clinical findings of cholestasis. 3. Minimal gallbladder wall thickening adjacent to the gallbladder fossa, most likely related to adjacent liver disease. No findings of cholelithiasis nor secondary findings cholecystitis. Consider further evaluation with a nuclear medicine hepatobiliary scan only if there are clinical findings of acute cholecystitis. 4. Trace perihepatic ascites. 5. No visualization of the pancreas. Qualifiers: Ascites presence: with ascites Qualified Code(s): K70.31 - Alcoholic cirrhosis of liver with ascites (5) DVT prophylaxis Current Visit: Yes Status: Acute Assessment and plan: SCDs on board -avoding heparin due to suspected end stage liver failure - Time Spent With Patient Total time spent is greater than 50% in coordination of care (as documented) at patient's floor/unit and/or counseling patient: - Subjective Interval history: Ms. Boone was seen at bedside this morning. She was admitted for diffuse abdominal pain. She has history of alcoholic cirrhosis. She also complained of bilateral lower extremity swelling. Her bowel movements are regular. She also elicited anorexia and decrease in appetite for the past 2 months. She denied fever, chills, shortness of breath, chest pain, any esophagitis or hematochezia. - Constitutional Vitals: Temp Pulse Resp BP Pulse Ox 98.3 F 85 16 95/55 94 10/18/17 15:58 10/18/17 15:58 10/18/17 15:58 10/18/17 15:58 10/18/17 15:58 General appearance: Present: A&O X 2, A&O X 3, no acute distress, answers questions appropriately - Head Head exam: Present: atraumatic, normocephalic - Eye Eye exam: Present: EOMI, sclera anicteric - ENT ENT exam: Present: mucous membranes moist - Neck Neck exam general surgery: Present: full ROM, trachea midline - Respiratory Respiratory exam: Present: decreased breath sounds. Absent: rhonchi, stridor, wheezes - Cardiovascular Cardiovascular exam: Absent: JVD - GI/Abdominal GI/Abdominal exam: Present: diminished bowel sounds, distended (no pitting edema ), firm, tenderness (diffuse tenderness) - Extremities Exam Extremities exam: Present: pedal edema (+3 pitting edema bilaterally) - Psychiatric Psychiatric exam: Present: normal affect, normal mood - Skin Skin exam: Present: dry, intact, warm. Absent: petechiae Internal Medicine: Result - Labs CBC & Chem 7: 10/16/17 05:52 10/18/17 10:02 Labs: BMP 10/18/17 10:02 Sodium 137 Potassium 3.1 L Chloride 97 L Carbon Dioxide 34 H BUN 6 Creatinine 0.53 L Glucose 166 H Calcium 8.4 L Liver Function 10/18/17 Range/Units 10:02 Total Bilirubin 5.4 H (0.3-1.0) mg/dL AST 69 H (13-39) Units/L ALT 10 (7-52) Units/L Alkaline Phosphatase 178 H (34-104) Units/L Albumin 2.8 L (3.5-5.7) g/dL - ABG Interpretation ABG results: PT/INR, D-dimer PT 30.7 Seconds (9.4-12.1) H 10/16/17 05:52 - VTE Documentation of Mechanical Device: Intermittent pneumatic compression device Consult Discharge Plan - Plan Referrals: Ella Heredia, [employer] [Primary Care Provider] - <Donna Srivastava - Last Filed: 10/18/17 22:04> Date of Encounter: 10/18/17 - Assessment and plan (1) Liver failure Current Visit: Yes Status: Chronic Qualifiers: Liver failure chronicity: acute Hepatic coma status: without hepatic coma Qualified Code(s): K72.00 - Acute and subacute hepatic failure without coma (2) Alcoholism Current Visit: Yes Status: Chronic (3) Abdominal pain Current Visit: Yes Status: Acute Qualifiers: Abdominal location: generalized Qualified Code(s): R10.84 - Generalized abdominal pain (4) Alcoholic cirrhosis Current Visit: Yes Status: Suspected Qualifiers: Ascites presence: with ascites Qualified Code(s): K70.31 - Alcoholic cirrhosis of liver with ascites (5) DVT prophylaxis Current Visit: Yes Status: Acute - Time Spent With Patient Total time spent is greater than 50% in coordination of care (as documented) at patient's floor/unit and/or counseling patient: - Constitutional Vitals: Temp Pulse Resp BP Pulse Ox 98.3 F 85 16 109/71 94 10/18/17 15:58 10/18/17 15:58 10/18/17 15:58 10/18/17 20:15 10/18/17 15:58 Internal Medicine: Result - Labs CBC & Chem 7: 10/16/17 05:52 10/18/17 10:02 Labs: BMP 10/18/17 10:02 Sodium 137 Potassium 3.1 L Chloride 97 L Carbon Dioxide 34 H BUN 6 Creatinine 0.53 L Glucose 166 H Calcium 8.4 L Liver Function 10/18/17 Range/Units 10:02 Total Bilirubin 5.4 H (0.3-1.0) mg/dL AST 69 H (13-39) Units/L ALT 10 (7-52) Units/L Alkaline Phosphatase 178 H (34-104) Units/L Albumin 2.8 L (3.5-5.7) g/dL - ABG Interpretation ABG results: PT/INR, D-dimer PT 30.7 Seconds (9.4-12.1) H 10/16/17 05:52 - Attending Attestation I have examined the patient and reviewed the progress note obtained and documented by the resident and I personally participated in the guan components. and formulation of the plan of care. I have discussed the case and management of the patient's care. ETOH cirrhosis with decompensation of Liver faliure and anasarca Responding slowly to diuresis not encephalopathic Synthetic dyssfunction evident prognosis guarded PT OT and placement soon COntinues to drink- lots of psychosocial factors at play
[2017-10-18] MEDS: Lactobacillus 1 EACH CAP.SPRINK PO SCH (20:17)
[2017-10-19] MEDS: OXYCODONE Oral CONC 10 MG/0.5 ML ORAL.SYG SL PRN ×4 (01:49→23:55)
[2017-10-19 06:54] LABS: Basophils % 0.2 %; Eosinophils # 0.2 K/mcL (0.0-0.6); Eosinophils % 1.2 %; Hemoglobin 9.5 g/dL (11.5-15.4); Immature Granulocytes % 0.8 % (0-4); Lymphocytes # 1.8 K/mcL (0.6-4.6); Lymphocytes % 11.7 %; Mean Corpuscular HGB Conc 31.7 g/dL (31.6-35.5); Mean Corpuscular Hemoglobin 34.9 pg (28.0-33.3); Mean Corpuscular Volume 110.3 fL (83.0-100.0); Mean Platelet Volume 11.5 fL (9.4-12.4); Monocytes % 6.4 %; Neutrophils # 12.3 K/mcL (1.6-8.9); Platelet Count 149 K/mcL (140-400); Red Blood Count 2.72 M/mcL (3.82-4.97); Red Cell Distribution Width 17.5 % (11.5-14.5); Segmented Neutrophils % 79.7 %
[2017-10-19 07:17] LABS: Alanine Aminotransferase 9 Units/L (7-52); Albumin 2.5 g/dL (3.5-5.7); Albumin/Globulin Ratio 0.7 (1.1-2.2); Alkaline Phosphatase 152 Units/L (34-104); Aspartate Amino Transferase 55 Units/L (13-39); BUN/Creatinine Ratio 18 (6-26); Bilirubin,Total 4.6 mg/dL (0.3-1.0); Blood Urea Nitrogen 7 mg/dL (6-20); Carbon Dioxide 31 mEq/L (23-29); Chloride 100 mEq/L (98-107); Globulin 3.4 g/dL (2.4-3.5); Glucose 93 mg/dL (70-105); Osmolality,Calculated 282 (280-300); Potassium 3.7 mEq/L (3.5-5.1); Sodium 137 mEq/L (136-145); Total Protein 5.9 g/dL (6.4-8.9); eGFR For African Americans > 60 (> 60); eGFR For Non-African Americans > 60 (> 60)
[2017-10-19 07:33] LABS: Macrocytosis Present (Not Present); Platelet Estimate Normal (Normal)
[2017-10-19] MEDS: Multivit/Ca/Min/Fe/FA 1 TAB TABLET PO SCH (08:39)
[2017-10-19] MEDS: Lactobacillus 1 EACH CAP.SPRINK PO SCH ×2 (08:39→21:07)
[2017-10-19] MEDS: Nicotine 21 MG PATCH.TD24 TD SCH (08:40)
[2017-10-19] MEDS: Thiamine (B-1) 100 MG TABLET PO SCH (08:40)
[2017-10-19] MEDS: Simethicone 80 MG TAB.CHEW PO PRN ×3 (08:40→21:07)
[2017-10-19] MEDS: Furosemide 20 MG TABLET PO SCH (08:40)
[2017-10-19] MEDS: Folic Acid 1 MG TABLET PO SCH (08:40)
--- NOTE | 2017-10-19 10:57 | Gastroenterology Progress Note ---
Date of Encounter: 10/20/17 Time of Encounter: 10:56 - Assessment and plan (1) Liver failure Current Visit: Yes Status: Chronic Assessment and plan: - Suspected alcholic fatty liver disease vs early cirrhosis secondary to alcohol abuse - Right upper quadrant on 10/16/17 sound showing severe steatosis and hepatomegaly with possible underlying fibrotic changes - No overt findings of cirrhosis but evidence of trace ascites - Patient is alert and oriented 3, no concern for hepatic encephalopathy at this time - Patient has been afebrile however white count continues to be elevated at 15.4. There is a concern from primary team about SBP - Patient reports symptoms of edema of lower extremities as well as abdomen. - Labs significant for elevated total bilirubin 5.6, albumin 2.6, elevated transaminases with AST greater than ALT with ratio of 88/13, alkaline phosphatase of 219 on admission - Macrocytic anemia noted as well - Attempted paracentesis on 10/16/17 shows no fluid for drainage Plan - Edema likely secondary to third spacing in the setting of hypoalbuminemia and decreased oncotic pressure. - Labs consistent with alcoholic liver failure with chronic malnutrition - We will add spironolactone 100 mg daily, given albumin on 10/17. Patient has been getting diuresed slowly - Encourage nutrition and cessation of alcohol - Consider addition of albumin replacement - Continue cefotaxime if continued concern of SBP - Supportive care per primary team 10/19: Improvement of symptoms of abdominal pain and swelling. Still has some discomfort. Continue to encourage diet and consider EGD tomorrow if no improvement, however risk may outweigh benefit given sedation needs. Qualifiers: Liver failure chronicity: acute Hepatic coma status: without hepatic coma Qualified Code(s): K72.00 - Acute and subacute hepatic failure without coma (2) Alcoholism Current Visit: Yes Status: Chronic Assessment and plan: - Patient was counseled on the importance of alcohol cessation. She states that she has been trying to cut back and has succeeded in cutting back to 1/2 gallon of whiskey per week over the last month. She is aware that this is likely the root cause of her liver failure and states she is trying to quit entirely. (3) Abdominal pain Current Visit: Yes Status: Acute Assessment and plan: - Likely secondary to edema and third spacing Patient reports improvement of symptoms throughout hospital stay Continue supportive care per primary team Qualifiers: Abdominal location: generalized Qualified Code(s): R10.84 - Generalized abdominal pain (4) Alcoholic cirrhosis Current Visit: Yes Status: Suspected Assessment and plan: Known history of alcohol abuse as above - Ultrasound liver showed hepatomegaly with severe steatosis, however no overt findings of cirrhosis and evidence of trace ascites - Lab results including bilirubin of 5.6 on admission, albumin 2.6, elevated transaminases (AST>ALT) - Liver ultrasound from 09/25/17 shows similar findings - Patient encouraged to quit abusing alcohol for presenting [facility] on cirrhosis - Meld score 24 estimating and 19.6% 3 month mortality Plan - Supportive care as above - Continue to encourage alcohol cessation Qualifiers: Ascites presence: with ascites Qualified Code(s): K70.31 - Alcoholic cirrhosis of liver with ascites - Time Spent With Patient Total time spent is greater than 50% in coordination of care (as documented) at patient's floor/unit and/or counseling patient: - Subjective Interval history: Ms. Boone was seen at bedside this morning. She reports that her abdominal pain has improved but is still present at times. States that when she was admitted it was 10/10 and is currently 7-8. Swelling has also improved. Tolerating diet well and she admits that she is not used to eating this much. Bowel movements normal for her. No other complaints at this time. - Constitutional Vitals: Temp Pulse Resp BP Pulse Ox 99.3 F 82 14 104/66 96 10/19/17 07:26 18 07:26 10/19/17 07:26 10/19/17 07:26 10/19/17 07:26 Exam: Gen.: Vitals noted. No acute distress. AAOx3 HEENT: PERRL/EOMI, oropharynx clear, Normocephalic, atraumatic, MMM Cardiac: RRR, no murmur, +S1/S2 Pulmonary: CTA bilaterally, no wheezes, rales or rhonchi, equal chest expansion Abdomen: soft, mildly tender to palpation diffusely, worst in RUQ, BS noted, no guarding, no rebound. MSK: ROM intact, no joint swelling noted Extremities: B/l LE edema up to knee L>R. Much improved from previous., nontender calf, no cyanosis or clubbing Neuro: A&Ox3, moves all extremities, no focal deficits Psych: Appropriate mood and behavior Results - Labs CBC & Chem 7: 10/20/17 06:23 10/20/17 06:23 Labs: Last Result Calcium 8.0 mg/dL (8.6-10.3) L 10/19/17 06:33 Entire Visit Hgb 9.5 g/dL (11.5-15.4) L 10/19/17 06:33 Hct 30.0 % (35.3-44.9) L 10/19/17 06:33 PT 30.7 Seconds (9.4-12.1) H 10/16/17 05:52 Total Bilirubin 4.6 mg/dL (0.3-1.0) H 10/19/17 06:33 AST 55 Units/L (13-39) H 10/19/17 06:33 ALT 9 Units/L (7-52) 10/19/17 06:33 Amylase 10 Units/L (29-103) L 10/15/17 19:24 Lipase 20 Units/L (11-82) 10/15/17 19:24 - ABG ABG results: PT/INR, D-dimer PT 30.7 Seconds (9.4-12.1) H 10/16/17 05:52 - VTE Documentation of Mechanical Device: Venous foot pump, device Consult Discharge Plan - Plan Referrals: Ella Heredia, [facility] [Primary Care Provider] -
[2017-10-19] MEDS ORDERED: Isovue-370 500 ML INFUS..BTL IV ONE (15:34)
--- NOTE | 2017-10-19 15:40 | Internal Med Progress Note ---
<Bev Allen - Last Filed: 10/19/17 15:49> Date of Encounter: 10/19/17 Time of Encounter: 03:40 - Assessment and plan (1) Liver failure Current Visit: Yes Status: Chronic Assessment and plan: Acute decompensated liver failure. 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 - On cefotaxine IV antibiotics for suspected SBP even though the amount of fluid seems to be in significant to tap. - Continue to trend for cultures to tailor antibiotics accordingly. - Repeat BMP today and in the morning. - Continue Spironolactone. - Added lactobacillis to keep bowel rudi healthy - Blood pressure appears to be stable 10/19: - Gastroenterology consulted, PPI added. GI considering endoscopy tomorrow. CT abdomen and pelvis. MELD score 24, mortality rate is 19% in 3 months Liver Ultrasound 10/16/17 09:30 IMPRESSION: 1. At least moderate hepatomegaly with severe steatosis. Coarsening of hepatic echotexture suggests some underlying fibrotic change, although no overt findings of cirrhosis are identified. 2. Minimal intrahepatic and extrahepatic biliary dilation with no findings suggestive of choledocholithiasis. Consider further evaluation with MRCP only if there are clinical findings of cholestasis. 3. Minimal gallbladder wall thickening adjacent to the gallbladder fossa, most likely related to adjacent liver disease. No findings of cholelithiasis nor secondary findings cholecystitis. Consider further evaluation with a nuclear medicine hepatobiliary scan only if there are clinical findings of acute cholecystitis. 4. Trace perihepatic ascites. 5. No visualization of the pancreas. Qualifiers: Liver failure chronicity: acute Hepatic coma status: without hepatic coma Qualified Code(s): K72.00 - Acute and subacute hepatic failure without coma (2) Alcoholism Current Visit: Yes Status: Chronic Assessment and plan: Place patient on CIWA protocol. -Drinks 1/2 gallon of whiskey a week with additional beers -Continue to monitor -No withdrawal as of now -Maddrey score is 102, suspected for alcoholic hepatitis. (3) Abdominal pain Current Visit: Yes Status: Acute Assessment and plan: Patient has abdominal distention and abdominal pain. History of cirrhosis with ascites. SBP is suspected. - Treating empirically with ceftaxime. - IR consult for diagnostic and therapeutic paracentesis 10/16-continues to have abdominal distention and abdominal pain. She does have history of cirrhosis and SBP is suspected. I will continue antibiotics for now. I spoke with interventional radiology who suggests that there is not enough fluid to do a diagnostic left alone a therapeutic tap. I then discussed the case with gastroenterology and we will request a formal consultation for input. At this point her INR is also elevated which is a measure of significant synthetic dysfunction Clinically she looks to be in decompensated liver failure. I will continue Lasix for now and further plan of care to be determined with gastroenterology. She does not look encephalopathic at this point Continue pain control 10/17-see plan above 10/18- same as above with addition to: added nutrition consulted, added nutrition supplement, added lactobacillis to keep colon rudi healthy 10/19- Abdomen pain improved today. PPI added today. CT abdomen and pelvis ordered. GI is considering endoscopy tomorrow Qualifiers: Abdominal location: generalized Qualified Code(s): R10.84 - Generalized abdominal pain (4) Alcoholic cirrhosis Current Visit: Yes Status: Suspected Assessment and plan: Acute on chronic worsening of end-stage liver disease. - Gastroenterology consulted Liver Ultrasound 10/16/17 09:30 IMPRESSION: 1. At least moderate hepatomegaly with severe steatosis. Coarsening of hepatic echotexture suggests some underlying fibrotic change, although no overt findings of cirrhosis are identified. 2. Minimal intrahepatic and extrahepatic biliary dilation with no findings suggestive of choledocholithiasis. Consider further evaluation with MRCP only if there are clinical findings of cholestasis. 3. Minimal gallbladder wall thickening adjacent to the gallbladder fossa, most likely related to adjacent liver disease. No findings of cholelithiasis nor secondary findings cholecystitis. Consider further evaluation with a nuclear medicine hepatobiliary scan only if there are clinical findings of acute cholecystitis. 4. Trace perihepatic ascites. 5. No visualization of the pancreas. Qualifiers: Ascites presence: with ascites Qualified Code(s): K70.31 - Alcoholic cirrhosis of liver with ascites - Time Spent With Patient Total time spent is greater than 50% in coordination of care (as documented) at patient's floor/unit and/or counseling patient: - Subjective Interval history: Ms. Boone was seen at bedside this morning. She was admitted for diffuse abdominal pain, improved since admission. She also complained of mid-epigastric pain which has been ongoing for 2 years, she has history of alcoholic cirrhosis. Her lower extremity is still swollen. Her bowel movements are regular. She also elicited anorexia and decrease in appetite for the past 2 months. She denied fever, chills, shortness of breath, chest pain, or hematochezia. - Constitutional Vitals: Temp Pulse Resp BP Pulse Ox 98.6 F 84 15 100/56 94 10/19/17 11:12 10/19/17 11:12 10/19/17 11:12 10/19/17 11:12 10/19/17 11:12 General appearance: Present: A&O X 2, A&O X 3, no acute distress, answers questions appropriately - Head Head exam: Present: atraumatic, normocephalic - Eye Eye exam: Present: EOMI, scleral icterus - ENT ENT exam: Present: mucous membranes moist - Neck Neck exam general surgery: Present: full ROM, trachea midline - Respiratory Respiratory exam: Present: CTAB. Absent: rhonchi, wheezes - Cardiovascular Cardiovascular exam: Absent: JVD, RRR - GI/Abdominal GI/Abdominal exam: Present: distended, firm, normal bowel sounds Additional comments: distended abdomen, non-pitting edema - Extremities Exam Extremities exam: Present: full ROM, pedal edema (3+ pitting edema), warm. Absent: tenderness - Psychiatric Psychiatric exam: Present: normal affect, normal mood - Skin Skin exam: Present: intact, warm. Absent: petechiae, rash Additional comments: palmar erythema, spider angiomas Internal Medicine: Result - Labs CBC & Chem 7: 10/19/17 06:33 10/19/17 06:33 Labs: Short CBC 10/19/17 Range/Units 06:33 WBC 15.4 H (4.3-11.1) K/mcL Hgb 9.5 L (11.5-15.4) g/dL Hct 30.0 L (35.3-44.9) % Plt Count 149 (140-400) K/mcL Neutrophils # 12.3 H (1.6-8.9) K/mcL BMP 10/19/17 06:33 Sodium 137 Potassium 3.7 Chloride 100 Carbon Dioxide 31 H BUN 7 Creatinine 0.40 L Glucose 93 Calcium 8.0 L Liver Function 10/19/17 Range/Units 06:33 Total Bilirubin 4.6 H (0.3-1.0) mg/dL AST 55 H (13-39) Units/L ALT 9 (7-52) Units/L Alkaline Phosphatase 152 H (34-104) Units/L Albumin 2.5 L (3.5-5.7) g/dL - ABG Interpretation ABG results: PT/INR, D-dimer PT 30.7 Seconds (9.4-12.1) H 10/16/17 05:52 - VTE Documentation of Mechanical Device: Venous foot pump, device Consult Discharge Plan - Plan Referrals: Ella Heredia, NOEMI [Primary Care Provider] - <Donna Srivastava - Last Filed: 10/19/17 18:22> Date of Encounter: 10/19/17 - Assessment and plan (1) Liver failure Current Visit: Yes Status: Chronic Qualifiers: Liver failure chronicity: acute Hepatic coma status: without hepatic coma Qualified Code(s): K72.00 - Acute and subacute hepatic failure without coma (2) Alcoholism Current Visit: Yes Status: Chronic (3) Abdominal pain Current Visit: Yes Status: Acute Qualifiers: Abdominal location: generalized Qualified Code(s): R10.84 - Generalized abdominal pain (4) Alcoholic cirrhosis Current Visit: Yes Status: Suspected Qualifiers: Ascites presence: with ascites Qualified Code(s): K70.31 - Alcoholic cirrhosis of liver with ascites - Time Spent With Patient Total time spent is greater than 50% in coordination of care (as documented) at patient's floor/unit and/or counseling patient: - Constitutional Vitals: Temp Pulse Resp BP Pulse Ox 97.5 F L 83 14 96/58 93 10/19/17 15:55 10/19/17 15:55 10/19/17 15:55 10/19/17 15:55 10/19/17 15:55 Internal Medicine: Result - Labs CBC & Chem 7: 10/19/17 06:33 10/19/17 06:33 Labs: Short CBC 10/19/17 Range/Units 06:33 WBC 15.4 H (4.3-11.1) K/mcL Hgb 9.5 L (11.5-15.4) g/dL Hct 30.0 L (35.3-44.9) % Plt Count 149 (140-400) K/mcL Neutrophils # 12.3 H (1.6-8.9) K/mcL BMP 10/19/17 06:33 Sodium 137 Potassium 3.7 Chloride 100 Carbon Dioxide 31 H BUN 7 Creatinine 0.40 L Glucose 93 Calcium 8.0 L Liver Function 10/19/17 Range/Units 06:33 Total Bilirubin 4.6 H (0.3-1.0) mg/dL AST 55 H (13-39) Units/L ALT 9 (7-52) Units/L Alkaline Phosphatase 152 H (34-104) Units/L Albumin 2.5 L (3.5-5.7) g/dL - ABG Interpretation ABG results: PT/INR, D-dimer PT 30.7 Seconds (9.4-12.1) H 10/16/17 05:52 - Attending Attestation I saw and evaluated the patient at bedside. I have reviewed the progress note obtained and documented by the resident and personally participated in the guan components. I have discussed the case and management of the patient's care. I agree with the findings and plan of care.The following comments revise or confirm relevant guan components of their note ESLD due to ETOH decompensated possible acute mild ETOH hepatitis - explains white count Rx for ABP ongoing DW GI at bedside- will scope tomorrow to look for further etiology of UGI related pain
[2017-10-20 06:47] LABS: Basophils # 0.1 K/mcL (0.0-0.2); Basophils % 0.4 %; Eosinophils # 0.2 K/mcL (0.0-0.6); Eosinophils % 1.3 %; Hematocrit 32.8 % (35.3-44.9); Hemoglobin 10.5 g/dL (11.5-15.4); Immature Granulocytes % 0.5 % (0-4); Lymphocytes # 1.7 K/mcL (0.6-4.6); Lymphocytes % 10.6 %; Mean Corpuscular Hemoglobin 35.5 pg (28.0-33.3); Mean Corpuscular Volume 110.8 fL (83.0-100.0); Mean Platelet Volume 11.2 fL (9.4-12.4); Monocytes % 6.2 %; Neutrophils # 12.9 K/mcL (1.6-8.9); Platelet Count 155 K/mcL (140-400); Red Blood Count 2.96 M/mcL (3.82-4.97); Red Cell Distribution Width 17.2 % (11.5-14.5)
[2017-10-20 07:01] LABS: Alanine Aminotransferase 12 Units/L (7-52); Albumin 2.6 g/dL (3.5-5.7); Albumin/Globulin Ratio 0.7 (1.1-2.2); Alkaline Phosphatase 154 Units/L (34-104); Aspartate Amino Transferase 67 Units/L (13-39); BUN/Creatinine Ratio 16 (6-26); Bilirubin,Total 5.2 mg/dL (0.3-1.0); Blood Urea Nitrogen 6 mg/dL (6-20); Calcium 8.3 mg/dL (8.6-10.3); Carbon Dioxide 31 mEq/L (23-29); Chloride 102 mEq/L (98-107); Globulin 3.6 g/dL (2.4-3.5); Glucose 102 mg/dL (70-105); Osmolality,Calculated 272 (280-300); Potassium 3.7 mEq/L (3.5-5.1); Sodium 132 mEq/L (136-145); Total Protein 6.2 g/dL (6.4-8.9); eGFR For African Americans > 60 (> 60); eGFR For Non-African Americans > 60 (> 60)
[2017-10-20 08:17] LABS: Anisocytosis 1+ (Not Present); Platelet Estimate Normal (Normal)
[2017-10-20 08:18] LABS: Macrocytosis Present (Not Present)
[2017-10-20] MEDS: Multivit/Ca/Min/Fe/FA 1 TAB TABLET PO SCH (08:25)
[2017-10-20] MEDS: Simethicone 80 MG TAB.CHEW PO PRN (08:25)
[2017-10-20] MEDS: Nicotine 21 MG PATCH.TD24 TD SCH (08:26)
[2017-10-20] MEDS: Thiamine (B-1) 100 MG TABLET PO SCH (08:26)
[2017-10-20] MEDS: Folic Acid 1 MG TABLET PO SCH (08:26)
[2017-10-20] MEDS: Lactobacillus 1 EACH CAP.SPRINK PO SCH (08:26)
[2017-10-20] MEDS: Furosemide 20 MG TABLET PO SCH (08:26)
[2017-10-20] MEDS: OXYCODONE Oral CONC 10 MG/0.5 ML ORAL.SYG SL PRN ×2 (08:28→16:24)
--- NOTE | 2017-10-20 10:23 | Gastroenterology Progress Note ---
Date of Encounter: 10/20/17 Time of Encounter: 10:18 - Assessment and plan (1) Liver failure Current Visit: Yes Status: Chronic Assessment and plan: - Suspect alcoholic hepatitis versus alcoholic fatty liver disease. - Right upper quadrant on 10/16/17 sound showing severe steatosis and hepatomegaly with possible underlying fibrotic changes - No overt findings of cirrhosis but evidence of trace ascites - Patient is alert and oriented 3, no concern for hepatic encephalopathy at this time - Patient has been afebrile with persistently elevated WBC. She is being treated for SBP currently. Low concern at this time - Patient reports improvement of symptoms of edema of lower extremities as well as abdomen. - Labs significant for elevated total bilirubin 5.6, albumin 2.6, elevated transaminases with AST greater than ALT with ratio of 88/13, alkaline phosphatase of 219 on admission - Macrocytic anemia noted as well - Attempted paracentesis on 10/16/17 shows no fluid for drainage Plan - Edema likely secondary to third spacing in the setting of hypoalbuminemia and decreased oncotic pressure. - Labs consistent with alcoholic liver failure with chronic malnutrition - We will add spironolactone 100 mg daily, given albumin on 10/17. Patient has been getting diuresed slowly - Encourage nutrition and cessation of alcohol - Supportive care per primary team 10/20: At this time patient is medically stable for discharge from a GI standpoint. She will have a follow-up appointment early next week. Swelling may continue to improve with improvement of diet. She was strongly encouraged to continue alcohol cessation. She was also encouraged to keep up her diet to increase her albumin. Dietary supplementation with ensure may need to be added. Low concern for SBP however she may continue oral antibiotics versus PICC line if indicated by primary team. Qualifiers: Liver failure chronicity: acute Hepatic coma status: without hepatic coma Qualified Code(s): K72.00 - Acute and subacute hepatic failure without coma (2) Alcoholism Current Visit: Yes Status: Chronic Assessment and plan: - Patient was counseled on the importance of alcohol cessation. She states that she has been trying to cut back and has succeeded in cutting back to 1/2 gallon of whiskey per week over the last month. She is aware that this is likely the root cause of her liver failure and states she is trying to quit entirely. (3) Abdominal pain Current Visit: Yes Status: Acute Assessment and plan: - Likely secondary to edema and third spacing Patient reports improvement of symptoms throughout hospital stay Continue supportive care per primary team Qualifiers: Abdominal location: generalized Qualified Code(s): R10.84 - Generalized abdominal pain (4) Alcoholic cirrhosis Current Visit: Yes Status: Suspected Assessment and plan: Known history of alcohol abuse as above - Ultrasound liver showed hepatomegaly with severe steatosis, however no overt findings of cirrhosis and evidence of trace ascites - Lab results including bilirubin of 5.6 on admission, albumin 2.6, elevated transaminases (AST>ALT) - Liver ultrasound from 09/25/17 shows similar findings - Patient encouraged to quit abusing alcohol for presenting to [facility] on cirrhosis - Meld score 24 estimating and 19.6% 3 month mortality Plan - Supportive care as above - Continue to encourage alcohol cessation Qualifiers: Ascites presence: with ascites Qualified Code(s): K70.31 - Alcoholic cirrhosis of liver with ascites - Time Spent With Patient Total time spent is greater than 50% in coordination of care (as documented) at patient's floor/unit and/or counseling patient: - Subjective Interval history: Ms. Boone was seen and examined at bedside this morning. She states overall she is feeling well with still some residual symptoms of abdominal pain however reports in preparation today. She states she is tolerating her diet well without any symptoms of nausea or vomiting. Bowel movements have been normal for her and regular. Denies any symptoms of fevers, chills. - Constitutional Vitals: Temp Pulse Resp BP Pulse Ox 98.3 F 74 17 102/65 97 10/20/17 08:02 10/20/17 08:02 10/20/17 08:02 10/20/17 08:02 10/20/17 08:02 Exam: Gen.: Vitals noted. No acute distress. AAOx3 HEENT: PERRL/EOMI, oropharynx clear, Normocephalic, atraumatic, MMM Cardiac: RRR, no murmur, +S1/S2 Pulmonary: CTA bilaterally, no wheezes, rales or rhonchi, equal chest expansion Abdomen: soft, mildly tender in epigastric and left upper quadrant, BS noted, no guarding, no rebound. Extremities: Improved BLE edema, nontender calf, no cyanosis or clubbing Neuro: A&Ox3, moves all extremities, no focal deficits Psych: Appropriate mood and behavior Results - Labs CBC & Chem 7: 10/20/17 06:23 10/20/17 06:23 Labs: Last Result Calcium 8.3 mg/dL (8.6-10.3) L 10/20/17 06:23 Vitamin B12 850 pg/mL (250-1100) 10/20/17 07:13 Entire Visit Hgb 10.5 g/dL (11.5-15.4) L 10/20/17 06:23 Hct 32.8 % (35.3-44.9) L 10/20/17 06:23 PT 30.7 Seconds (9.4-12.1) H 10/16/17 05:52 Total Bilirubin 5.2 mg/dL (0.3-1.0) H 10/20/17 06:23 AST 67 Units/L (13-39) H 10/20/17 06:23 ALT 12 Units/L (7-52) 10/20/17 06:23 Amylase 10 Units/L (29-103) L 10/15/17 19:24 Lipase 20 Units/L (11-82) 10/15/17 19:24 - ABG ABG results: PT/INR, D-dimer PT 30.7 Seconds (9.4-12.1) H 10/16/17 05:52 - Impressions Impressions Abdomen/Pelvis CT 10/19/17 18:00 IMPRESSION: 1. Evidence of thickening around the distal rectum and anus with a likely perianal abscess. 2. Severe hepatomegaly and extensive inhomogeneity of the liver. This was previously seen as well. 3. Ascites which is moderate in the pelvis. D/ / 10/19/2017 19:29:31 Oneyda Brink MD / bcarter Interpreting Provider: Oneyda Brink MD - VTE Documentation of Mechanical Device: Intermittent pneumatic compression device Consult Discharge Plan - Plan Referrals: Ella Heredia, RN ALLERGY [Primary Care Provider] -
[2017-10-20 11:24] VITALS: BP 99/62
--- NOTE | 2017-10-20 14:27 | Discharge Summary ---
<Bev Allen - Last Filed: 10/20/17 15:02> - NOTES TO OUTPATIENT PROVIDER Notes to Outpatient Provider: Ms. Boone presented to the ED on 10/15/17 for abdominal pain ongoing for 2 to 3 months. She has history of alcoholic cirrhosis. Her abdominal ultrasound did not show enough fluid to allow paracentesis. CT of the abdomen showed hepatomegaly. Her vitals remained stable. She was on cefotaxime for suspected SBP. She has macrocytosic anemia, methylmalinic acid results pending. GI was consulted and they will follow outpatient in 7 days. She will be discharged with keflex for 7 days. Orders not resulted at time of discharge: Pending orders 10/20/17 07:13 Homocysteine Routine MMA (VIT B12 STATUS) Routine Date of Encounter: 10/20/17 Time of Encounter: 02:25 - Discharge Diagnosis (1) Alcoholic cirrhosis Priority: Primary Status: Suspected Assessment and Plan: Acute on chronic worsening of end-stage liver disease. - Gastroenterology consulted - will follow with gastro outpatient - Advised to stop alcoholic consumption - On spironolactone and furosemide - Suspected alcoholic hepatitis. Meddrey score was 99 and discussed with GI and they will like to hold prednisone at this time and follow her outpatient in 7 days. Liver Ultrasound 10/16/17 09:30 IMPRESSION: 1. At least moderate hepatomegaly with severe steatosis. Coarsening of hepatic echotexture suggests some underlying fibrotic change, although no overt findings of cirrhosis are identified. 2. Minimal intrahepatic and extrahepatic biliary dilation with no findings suggestive of choledocholithiasis. Consider further evaluation with MRCP only if there are clinical findings of cholestasis. 3. Minimal gallbladder wall thickening adjacent to the gallbladder fossa, most likely related to adjacent liver disease. No findings of cholelithiasis nor secondary findings cholecystitis. Consider further evaluation with a nuclear medicine hepatobiliary scan only if there are clinical findings of acute cholecystitis. 4. Trace perihepatic ascites. 5. No visualization of the pancreas. Qualifiers: Ascites presence: with ascites Qualified Code(s): K70.31 - Alcoholic cirrhosis of liver with ascites (2) Liver failure Priority: Secondary Status: Chronic Assessment and Plan: Acute decompensated liver failure. 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 - On cefotaxine IV antibiotics for suspected SBP even though the amount of fluid seems to be in significant to tap. - Continue Spironolactone. - Added lactobacillis to keep bowel rudi healthy - Blood pressure appears to be stable 10/19: - Gastroenterology consulted, PPI added. GI considering endoscopy tomorrow. CT abdomen and pelvis. MELD score 24, mortality rate is 19% in 3 months 10/20: Spoke with GI and they would like to do a scope outpatient. Bilirubin remains high by clinically her abdominal pain has decreased. Discussed stopping alcohol intake and she does not want assistance at this time. She will be discharged with keflex outpatient and will follow with GI in 7 days. Liver Ultrasound 10/16/17 09:30 IMPRESSION: 1. At least moderate hepatomegaly with severe steatosis. Coarsening of hepatic echotexture suggests some underlying fibrotic change, although no overt findings of cirrhosis are identified. 2. Minimal intrahepatic and extrahepatic biliary dilation with no findings suggestive of choledocholithiasis. Consider further evaluation with MRCP only if there are clinical findings of cholestasis. 3. Minimal gallbladder wall thickening adjacent to the gallbladder fossa, most likely related to adjacent liver disease. No findings of cholelithiasis nor secondary findings cholecystitis. Consider further evaluation with a nuclear medicine hepatobiliary scan only if there are clinical findings of acute cholecystitis. 4. Trace perihepatic ascites. 5. No visualization of the pancreas. Qualifiers: Liver failure chronicity: acute Hepatic coma status: without hepatic coma Qualified Code(s): K72.00 - Acute and subacute hepatic failure without coma (3) Alcoholism Priority: Secondary Status: Chronic Assessment and Plan: Place patient on CIWA protocol. -Drinks 1/2 gallon of whiskey a week with additional beers -Continue to monitor -No withdrawal as of now, did not require any ativan -Maddrey score is 102, suspected for alcoholic hepatitis. (4) Abdominal pain Priority: Secondary Status: Resolved Assessment and Plan: Patient has abdominal distention and abdominal pain. History of cirrhosis with ascites. SBP is suspected. - Treating empirically with ceftaxime. - IR consult for diagnostic and therapeutic paracentesis 10/16-continues to have abdominal distention and abdominal pain. She does have history of cirrhosis and SBP is suspected. I will continue antibiotics for now. I spoke with interventional radiology who suggests that there is not enough fluid to do a diagnostic left alone a therapeutic tap. I then discussed the case with gastroenterology and we will request a formal consultation for input. At this point her INR is also elevated which is a measure of significant synthetic dysfunction Clinically she looks to be in decompensated liver failure. I will continue Lasix for now and further plan of care to be determined with gastroenterology. She does not look encephalopathic at this point Continue pain control 10/17-see plan above 10/18- same as above with addition to: added nutrition consulted, added nutrition supplement, added lactobacillis to keep colon rudi healthy 10/19- same as above with addition to: Abdomen pain improved today. PPI added today. CT abdomen and pelvis ordered. GI is considering endoscopy tomorrow. PT and OT ordered. 10/20 - Same as above with addition to: CT abdomen showed improvement of the suspected perianal abscess. GI will follow outpatient in 7 days. Discharging with keflex for 7 days. Qualifiers: Abdominal location: generalized Qualified Code(s): R10.84 - Generalized abdominal pain (5) DVT prophylaxis Priority: Secondary Status: Acute Assessment and Plan: INR was high on admission. On SCDs (6) GERD (gastroesophageal reflux disease) Priority: Secondary Status: Acute Assessment and Plan: Epigastric tenderness worse after emals. -Started on Omeprazole 40 mg daily Qualifiers: Esophagitis presence: esophagitis presence not specified Qualified Code(s) : K21.9 - Gastro-esophageal reflux disease without esophagitis Hospital course: Ms. Boone is a 47 year old female who presented to the ED on 10/15/17 for abdominal pain ongoing for 2 to 3 months. She has history of alcoholic cirrhosis. Her abdominal ultrasound did not show enough fluid to allow paracentesis. And did not visualize any cholelithiasis. CT of the abdomen showed hepatomegaly. Her Meddrey score was 99 and discussed with GI about starting prednisone and they have decided to not start prednisone at this time and instead follow her outpatient in 7 days with keflex for 7 days. Her vitals remained stable during her admission. She was on cefotaxime for suspected SBP. She has macrocytosic anemia, methylmalonic acid results pending. GI was consulted and they will follow outpatient in 7 days. She will be discharged with keflex for 7 days. I discussed with her extensively about stopping alcohol and her risk of mortality due to her alcohol consumption. She does not want any help for alcohol cessation. Discharge discussed with: patient - Time Spent with Patient Total time spent providing and/or coordinating discharge services: - Discharge Medications Prescriptions: Cephalexin [Keflex] 500 mg PO BID 7 Days #14 capsule Lactobacillus [Culturelle] 1 each PO BID #30 cap.sprink Omeprazole [PriLOSEC] 40 mg PO DAILY@0630 #30 capsule. Spironolactone [Aldactone] 100 mg PO DAILY #30 tablet Tramadol HCl [Ultram] 50 mg PO BID PRN 5 Days #10 tab PRN Reason: Abdominal Distention Home Medications: Albuterol Sulfate [Albuterol Inhaler] 1 puff IH Q4HR PRN 09/24/17 [History] Folic Acid 1 mg PO DAILY #30 tablet 09/27/17 [Rx] Multivit/Ca/Min/Fe/FA [Thera M Plus] 1 tab PO DAILY #30 tablet 09/27/17 [Rx] Thiamine (B-1) [Vitamin B-1] 100 mg PO DAILY #30 tablet 09/27/17 [Rx] Furosemide [Lasix] 20 mg PO DAILY 10/16/17 [History] Cephalexin [Keflex] 500 mg PO BID 7 Days #14 capsule 10/20/17 [Rx] Lactobacillus [Culturelle] 1 each PO BID #30 cap.sprink 10/20/17 [Rx] Omeprazole [PriLOSEC] 40 mg PO DAILY@0630 #30 capsule. 10/20/17 [Rx] Spironolactone [Aldactone] 100 mg PO DAILY #30 tablet 10/20/17 [Rx] Tramadol HCl [Ultram] 50 mg PO BID PRN 5 Days #10 tab 10/20/17 [Rx] Allergies/Adverse Reactions: 3 Allergy/AdvReac Type Severity Reaction Status Date / Time No Known Allergies Allergy Verified 09/24/17 16:35 Date of admission: 10/15/17 23:40 Primary care physician: Ella Heredia CNP Consults: 10/18/17 11:27 Consult to Nutrition [CONS] Routine Comment: Consulting Provider: NUTRITION Reason for Dietary Consult: PO Supplementation Other:: protein deficiency 10/19/17 11:16 PT [Consult to Physical Therapy] [CONS] Routine Comment: Evaluate, develop and implement POC Reason for Consult: Needs some physical therapy due to deconditioning Does patient have active BEDREST order?: No Is patient medically & hemodynamically stable?: Yes Patient assessed for mobility or mobilized this visit?: Yes Discharging clinician: Bev Allen Anticipated date of discharge: 10/20/17 - Constitutional Vitals: Temp Pulse Resp BP Pulse Ox 97.6 F 82 16 99/62 94 10/20/17 11:20 10/20/17 11:20 10/20/17 11:20 10/20/17 11:20 10/20/17 11:20 General appearance: Present: A&O X 2, A&O X 3, no acute distress, answers questions appropriately - Head Head exam: Present: atraumatic, normocephalic - Eye Eye exam: Present: EOMI, scleral icterus - ENT ENT exam: Present: mucous membranes moist - Neck Neck exam general surgery: Present: full ROM, trachea midline - Respiratory Respiratory exam: Present: CTAB. Absent: chest wall tenderness, rales, stridor , wheezes - Cardiovascular Cardiovascular exam: Present: RRR. Absent: JVD - GI/Abdominal GI/Abdominal exam: Present: distended, hepatomegaly, normal bowel sounds, tenderness (diffuse abdominal tenderness, worse in epigastric region) - Extremities Exam Extremities exam: Present: full ROM, pedal edema (3+ pitting edema), warm. Absent: calf tenderness - Neurological Exam Neurological exam: Present: alert, altered, normal gait - Skin Skin exam: Present: dry, intact, normal color, warm - Patient Status Disposition: Home, Self-Care Condition: Fair Functional capacity at discharge: independent ambulation Overall status at discharge: other (She is progressive back to her baseline, her disease is chronic) - Discharge Instructions Instructions: Cirrhosis (DC), Ascites (DC) Follow Up With: Navneet Lopez MD [Partnered Physician] - (The office will call you on Monday with appointment time and day. If you do not hear anything by 1:00pm Monday, please call the number provided. ) Ella Heredia CNP [Primary Care Provider] - 10/24/17 10:00 am Additional Instructions: Your medications were called into [facility]. Please pick those up ANDREAS. Follow-up appointments: If there is not an appointment listed below, please call your physician and schedule a follow-up appointment. If you have congestive heart failure and your symptoms return, make an appointment with your physician. Medication List: Carry an up to date list of medications you are taking at all time. We have given you an updated medication list including any new medications that you have been prescribed. Please provide that list to your primary provider Symptoms: If your condition changes or you experience any of the following symptoms, notify your physician immediately: Unusual or worsening pain, fever, persistent nausea and vomiting, bleeding, increase in swelling (especially in your legs), sudden weight gain, extreme dizziness, chest pain, increased drainage or redness from a wound or incision. Go to the emergency department if you experience a problem with breathing. Weights: If you have a history of swelling or shortness of breath, weigh yourself daily and notify your physician if you have a weight gain of two or more pounds in one day or 5 or more pounds in a week. If you experience any of the warning signs for stroke: Sudden numbness or weakness of the face, arm or leg; especially on one side of the body, sudden confusion, trouble speaking or understanding, sudden trouble seeing in one or both eyes, sudden trouble walking, dizziness, loss of balance or coordination, sudden sever headache with no cause; Call 911 or go to the emergency room. Stroke is a medical emergency. Some risk factors for stroke: Age, cigarette smoking, diabetes, excessive alcohol consumption, family history , high blood pressure, overweight, physical inactivity, prior stroke, heart attack, diagnosis of carotid artery stenosis or other artery disease. If you smoke, STOP: Smoking or tobacco use significantly increases your risk of heart and lung disease. Your chance of disease greatly increases if you continue to smoke. For more information, call the [place] tobacco quit line for smoking cessation QUIT-NOW ( ) - VTE Documentation of Mechanical Device: Venous foot pump, device <Donna Srivastava - Last Filed: 10/20/17 18:13> Orders not resulted at time of discharge: Pending orders 10/20/17 07:13 Homocysteine Routine MMA (VIT B12 STATUS) Routine Date of Encounter: 10/20/17 - Discharge Diagnosis (1) Liver failure Status: Chronic Qualifiers: Liver failure chronicity: acute Hepatic coma status: without hepatic coma Qualified Code(s): K72.00 - Acute and subacute hepatic failure without coma (2) Alcoholism Status: Chronic (3) DVT prophylaxis Status: Acute (4) Abdominal pain Status: Resolved Qualifiers: Abdominal location: generalized Qualified Code(s): R10.84 - Generalized abdominal pain (5) Alcoholic cirrhosis Status: Suspected Qualifiers: Ascites presence: with ascites Qualified Code(s): K70.31 - Alcoholic cirrhosis of liver with ascites (6) GERD (gastroesophageal reflux disease) Status: Acute Qualifiers: Esophagitis presence: esophagitis presence not specified Qualified Code(s) : K21.9 - Gastro-esophageal reflux disease without esophagitis Hospital course: Ms. Boone is a 47 year old female - Time Spent with Patient Total time spent providing and/or coordinating discharge services: Date of admission: 10/15/17 23:40 Primary care physician: Ella Heredia CNP Consults: 10/18/17 11:27 Consult to Nutrition [CONS] Routine Comment: Consulting Provider: NUTRITION Reason for Dietary Consult: PO Supplementation Other:: protein deficiency 10/19/17 11:16 PT [Consult to Physical Therapy] [CONS] Routine Comment: Evaluate, develop and implement POC Reason for Consult: Needs some physical therapy due to deconditioning Does patient have active BEDREST order?: No Is patient medically & hemodynamically stable?: Yes Patient assessed for mobility or mobilized this visit?: Yes - Constitutional Vitals: Temp Pulse Resp BP Pulse Ox 97.6 F 82 16 99/62 94 10/20/17 11:20 10/20/17 11:20 10/20/17 11:20 10/20/17 11:20 10/20/17 11:20 - Attending Attestation I saw and evaluated the patient at bedside. I have reviewed the DC Summary note obtained and documented by the resident and personally participated in the guan components. I have discussed the case and management of the patient's care. I agree with the findings and plan of care. The following comments revise or confirm relevant ugan components of their note. 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
== END 2017-10-20 16:36 | disposition home or self-care (01) | DRG 280 ==
LOC: 3BNU 18:29 → EMEROO 18:29 → 3BNU 23:37 → OBSVTOIN 23:40 → SUATTDRO 23:40
PROVIDERS: ADMIT Internal Medicine; ATTEND Internal Medicine

== ENCOUNTER 2021-03-10 12:11 | Observation (INO) ==
[2021-03-10] MEDS ORDERED: 0.9 % Sodium Chloride 1,000 ML IVC ONE (12:40)
[2021-03-10] MEDS ORDERED: *HR* LORazepam 2 MG/ML VIAL ONE (12:49)
[2021-03-10] MEDS ORDERED: *HR* LORazepam 2 MG/ML VIAL IVP ONE (12:53)
[2021-03-10 13:27] LABS: Basophils # 0.1 K/mcL (0.0-0.2); Basophils % 0.5 %; Eosinophils # 0.2 K/mcL (0.0-0.6); Eosinophils % 1.3 %; Hematocrit 43.5 % (35.3-44.9); Hemoglobin 12.9 g/dL (11.5-15.4); Immature Granulocytes % 0.6 % (0-4); Lymphocytes # 3.2 K/mcL (0.6-4.6); Lymphocytes % 23.3 %; Mean Corpuscular HGB Conc 29.7 g/dL (31.6-35.5); Mean Corpuscular Hemoglobin 26.1 pg (28.0-33.3); Mean Corpuscular Volume 88.1 fL (83.0-100.0); Monocytes # 0.8 K/mcL (0.0-1.3); Monocytes % 6.1 %; Neutrophils # 9.4 K/mcL (1.6-8.9); Platelet Count 182 K/mcL (140-400); Red Blood Count 4.94 M/mcL (3.82-4.97); Red Cell Distribution Width 15.1 % (11.5-14.5); Segmented Neutrophils % 68.2 %; White Blood Count 13.7 K/mcL (4.3-11.1)
[2021-03-10 13:45] LABS: Alanine Aminotransferase 7 Units/L (7-52); Albumin/Globulin Ratio 1.1 (1.1-2.2); Alkaline Phosphatase 69 Units/L (34-104); Aspartate Amino Transferase 17 Units/L (13-39); BUN/Creatinine Ratio 16 (6-26); Bilirubin,Total 0.5 mg/dL (0.3-1.0); Blood Urea Nitrogen 12 mg/dL (6-20); Calcium 9.2 mg/dL (8.6-10.3); Carbon Dioxide 21 mEq/L (23-29); Chloride 103 mEq/L (98-107); Ethanol < 10 mg/dL (Less than 10); Globulin 3.8 g/dL (2.4-3.5); Glucose 123 mg/dL (70-105); Osmolality,Calculated 293 (280-300); Potassium 3.2 mEq/L (3.5-5.1); Sodium 141 mEq/L (136-145); Total Protein 7.8 g/dL (6.4-8.9); eGFR For African Americans > 60 (> 60); eGFR For Non-African Americans > 60 (> 60)
[2021-03-10 14:40] LABS: Bilirubin,Urine Negative (Negative); Blood,Urine Negative (Negative); Clarity,Urine Turbid (Clear); Color,Urine Light-Yellow (Yellow); Glucose,Urine (UA) Normal (Normal); Ketones,Urine Negative (Negative); Leukocyte Esterase,Urine Negative (Negative); Nitrite,Urine Negative (Negative); PH,Urine 6.5 pH Units (5.0-8.0); Protein,Urine Trace mg/dL (Neg-Trace); RBC,Urine 0-3 per hpf (0-3); Specific Gravity,Urine 1.013 (1.010-1.025); Squamous Epithelial Cell,Urine Few per hpf (None-Few); Urobilinogen,Urine Normal (Normal); WBC,Urine 0-3 per hpf (0-3)
[2021-03-10 15:13] LABS: Amphetamine Screen,Urine Positive ng/mL (Cutoff=1000); Barbiturate Screen,Urine Negative ng/mL (Cutoff=200); Benzodiazepines Screen,Urine Negative ng/mL (Cutoff=200); Cannabinoid Screen,Urine Negative ng/mL (Cutoff = 50); Cocaine Screen,Urine Negative ng/mL (Cutoff= 300); Opiate Screen,Urine Negative ng/mL (Cutoff=300); Phencyclidine Screen,Urine Negative ng/mL (Cutoff=25)
[2021-03-10] MEDS ORDERED: Potassium Chloride Elixir 20 MEQ/15 ML UDC PO ONE (15:26)
[2021-03-10] MEDS ORDERED: Lidocaine -MPF 2% 5 ML VIAL INFILT ONE (15:37)
[2021-03-10] MEDS ORDERED: Ondansetron 4 MG/2 ML VIAL IVP PRN (17:35)
[2021-03-10] MEDS ORDERED: Naloxone 0.4 MG/ML INJ IVP PRN (17:35)
[2021-03-10] MEDS ORDERED: *HR* LORazepam 2 MG/ML VIAL IVP PRN (17:39)
[2021-03-10] MEDS ORDERED: 0.9 % Sodium Chloride 1,000 ML IVC SCH (17:45)
[2021-03-11 03:54] VITALS: BP 131/73; PULSE 77; TEMP 98.1; O2SAT 95
[2021-03-11] MEDS ORDERED: *HR* Buprenorphine HCl 8 MG TAB.SUBL SL SCH (09:00)
== END 2021-03-11 04:30 | disposition left against medical advice (07) ==
LOC: 3ANU 12:11 → EMEROOARM 12:11 → 3ANU 18:24
PROVIDERS: ADMIT Pharmacist; ATTEND Pharmacist